=== PATIENT | female | born 1970 | race Caucasian/White ===

== ENCOUNTER → 2017-04-19 | Outpatient (CLI) | payer OTHER ==
[~2017-04-19] MED LIST: AMOX500C2 PO; AMOXICILLIN; DIPH25TA82; HYDR-3812 PO; INDO50CA PO; NAPR550T PO; OMEP-10 PO; VARE1TAB17; VARE1TAB19 PO
--- NOTE | 2017-04-19 13:46 | Diagnostic Imaging Report ---
Bilateral diagnostic mammogram. CAD is utilized. COMPARISON: 09/14/2016. INDICATION: Left breast nipple itching and discharge. Followup asymmetry with increased density along the retroareolar region in the right CC projection. FINDINGS: The breasts are composed of heterogeneously dense parenchyma which may decrease mammographic sensitivity. When compared to prior studies the density in the central aspect of the right CC projection appears less prominent. There is no definite abnormality in the left breast. IMPRESSION: No mammographic evidence of malignancy. Dense breasts. Ultrasound evaluation pending. ACR BI-RADS Category 0: Incomplete. (Needs additional imaging evaluation). Result letter will be mailed to the patient. Note: At least 10% of breast cancer is not imaged by mammography. Dictated by: Dictated on workstation # [id number]
--- NOTE | 2017-04-19 19:24 | Diagnostic Imaging Report ---
EXAM: Bilateral breast ultrasound. INDICATION: Left nipple itching and discharge and right breast asymmetry which appears less prominent on the concurrent mammogram. FINDINGS: Both breasts are scanned with four-quadrant/retroareolar region evaluated. There is bilateral duct ectasia, more prominent on the left side. There is otherwise no suspicious lesion seen. IMPRESSION: Bilateral duct ectasia, more prominent on the left side, with no solid mass. Clinical followup for complaints of nipple discharge and itching is recommended. If indicated, cytology evaluation and/or MRI of the breasts could be performed for further evaluation. BI-RADS 2. ACR BI-RADS Category 2: Benign findings. Result letter will be mailed to the patient. Note: At least 10% of breast cancer is not imaged by mammography. Dictated by: Dictated on workstation # [id number]
== END ==
LOC: RAD 13:07
PROVIDERS: ATTEND Nurse Practitioner Adult Health
DX: N60.42 Mammary duct ectasia of left breast (principal)
CPT/HCPCS: 77066

== ENCOUNTER 2017-12-26 08:50 | Emergency (ER) | payer SELFPAY ==
[~2017-12-26 08:50] MED LIST changes: +ACHD5005 PO; -HYDR-3812 PO
[2017-12-26 09:12] VITALS: BP 0/0
--- OUTSIDE RECORDS SUMMARY | 2017-12-26 11:47 | XMS REPORT ---
Author Author NATALYA BERG Organization [facility] Address [address] [place] [address] Care Team Providers Care Rewriter Name Role Phone BERG, NATALYA Unavailable PROBLEMS Type Condition ICD9-CM Code [id number] Code Onset Dates Condition Status SNOMED Code Problem Heart murmur R01.1 Active 59291348 Problem Fatigue R53.83 Active 04716660 Problem Obesity due to excess calories, unspecified obesity severity E66.09 Active 506425179 Problem Abnormal mammogram R92.8 Active 556748451 Problem Tobacco abuse counseling Z71.6 Active 04541596 Problem Family history of diabetes mellitus Z83.3 Active 965225976 Problem Major depressive disorder with single episode, remission status unspecified F32.9 Active 86563209 Problem Primary insomnia F51.01 Active 1151497 ALLERGIES No Known Allergies SOCIAL HISTORY Never Assessed PLAN OF CARE Activity Details Follow Up 3 Months Reason: VITAL SIGNS Height 64 in 2017-01-20 Weight 195 lbs 2017-01-20 Temperature 98.6 degrees Fahrenheit 2017-01-20 Heart Rate 78 bpm 2017-01-20 Respiratory Rate 18 2017-01-20 BMI 33.47 kg/m2 2017-01-20 Blood pressure systolic 90 mmHg 2017-01-20 Blood pressure diastolic 64 mmHg 2017-01-20 MEDICATIONS Medication Instructions Dosage Frequency Start Date End Date Duration Status Albuterol Sulfate HFA 108 (90 Base) MCG/ACT Inhalation every 4 hrs 2 puffs as needed 4h Dec, Active Azithromycin 250 MG Orally Once a day 2 tablets on the first day, then 1 tablet daily for 4 days 24h Dec, Dec, 5 day(s) Active PredniSONE 20 mg Orally twice a day 1 tablet 12h Dec, Dec, 05 days Active RESULTS No Results PROCEDURES No Known procedures IMMUNIZATIONS No Known Immunizations MEDICAL (GENERAL) HISTORY Type Description Date Medical History arthritis Surgical History section Surgical History exploratory laparoscopy Surgical History skin cancer- basal cell Surgical History tonsillectomy Hospitalization History Surgery(s)/Childbirth(s) only
--- OUTSIDE RECORDS SUMMARY | 2017-12-26 11:47 | XMS REPORT ---
Author NATALYA Olmedo [facility] eClinicalWorks Address Unknown Phone Unavailable Care Team Providers Care Machined Parts Metal Sprayer Name Role Phone NATALYA BERG CP Unavailable Allergies No Known Allergies Problems Problem Type Condition Code Onset Dates Condition Status Problem Major depressive disorder with single episode, remission status unspecified F32.9 Active Problem Tobacco abuse counseling Z71.6 Active Problem Primary insomnia F51.01 Active Problem Heart murmur R01.1 Active Problem Fatigue R53.83 Active Problem Family history of diabetes mellitus Z83.3 Active Medications No Known Medications Results No Known Results Summary Purpose eClinicalWorks Submission
--- OUTSIDE RECORDS SUMMARY | 2017-12-26 11:47 | XMS REPORT ---
Author NATALYA Olmedo [facility] eClinicalWorks Address Unknown Phone Unavailable Care Team Providers Care Client Account Specialist Name Role Phone NATALYA BERG CP Unavailable Allergies No Known Allergies Problems Problem Type Condition Code Onset Dates Condition Status Assessment Abnormal mammogram R92.8 Active Problem Primary insomnia F51.01 Active Problem Major depressive disorder with single episode, remission status unspecified F32.9 Active Problem Abnormal mammogram R92.8 Active Problem Family history of diabetes mellitus Z83.3 Active Problem Heart murmur R01.1 Active Problem Tobacco abuse counseling Z71.6 Active Problem Fatigue R53.83 Active Medications No Known Medications Results No Known Results Summary Purpose eClinicalWorks Submission
--- OUTSIDE RECORDS SUMMARY | 2017-12-26 11:47 | XMS REPORT ---
Author NATALYA Olmedo [facility] eClinicalWorks Address Unknown Phone Unavailable Care Team Providers Care Pleater Name Role Phone NATALYA BERG CP Unavailable [...]
--- OUTSIDE RECORDS SUMMARY | 2017-12-26 11:47 | XMS REPORT ---
Author ELLEN Wiggins [facility] eClinicalWorks Address Unknown Phone Unavailable Care Team Providers Care Interpreter Name Role Phone ELLEN CARRILLO CP Unavailable Allergies No Known Allergies Problems [...]
--- OUTSIDE RECORDS SUMMARY | 2017-12-26 11:47 | XMS REPORT ---
Author NATALYA Olmedo Organization e[employer] Address Unknown Phone Unavailable Care Team Providers Care Public Speaker Name Role Phone NATALYA BERG CP Unavailable Allergies, Adverse Reactions, Alerts Substance Reaction Event Type N.K.D.A. Info Not Available Non Drug Allergy Problems Problem Type Condition Code Onset Dates Condition Status Assessment Coughing R05 Active Assessment Fatigue R53.83 Active Assessment Major depressive disorder with single episode, remission status unspecified F32.9 Active Problem Major depressive disorder with single episode, remission status unspecified F32.9 Active Problem Tobacco abuse counseling Z71.6 Active Problem Primary insomnia F51.01 Active Problem Heart murmur R01.1 Active Assessment Primary insomnia F51.01 Active Problem Fatigue R53.83 Active Problem Family history of diabetes mellitus Z83.3 Active Assessment Tobacco abuse counseling Z71.6 Active Assessment Tobacco use Z72.0 Active Assessment Wellness examination Z00.00 Active Assessment Coughing up blood R04.2 Active Medications Medication Code System Code Instructions Start Date End Date Status Dosage Chantix [facility] [address]-18 1 MG Orally Twice a day June 15, 2016 Sep 13, 2016 1 tablet Lexapro [facility] [address]-15 5 mg Orally Once a day June 15, 2016 2 tablets Procedures Procedure Coding System Code Date COMPREHEN METABOLIC PANEL CPT-4 96666 June 15, 2016 ASSAY THYROID STIM HORMONE CPT-4 77821 June 15, 2016 COMPLETE CBC W/AUTO DIFF WBC CPT-4 69243 June 15, 2016 CHEST X-RAY CPT-4 65261 June 15, 2016 Office Visit, Est Pt., Level 4 CPT-4 34464 June 15, 2016 VENIPUNCT, ROUTINE* CPT-4 06340 June 15, 2016 Vital Signs Date/Time: June 15, 2016 Cardiac Monitoring Heart Rate 77 bpm Weight 194.1 lbs Height 64 in Blood Pressure Diastolic 78 mmHg Blood Pressure Systolic 128 mmHg Results No Known Results Summary Purpose eClinicalWorks Submission
--- OUTSIDE RECORDS SUMMARY | 2017-12-26 11:48 | XMS REPORT | Continuity of Care Document ---
Author Author [facility] Address Unknown Phone Unavailable Allergies Active Description Code Type Severity Reaction Onset Reported/Identified Relationship to Patient Clinical Status Yes codeine Drug Allergy 07/30/2009 Yes codeine Drug Allergy N/A N/A 07/30/2009 Yes NKANo Known Allergies NKA Miscellaneous Allergy Mild N/A 02/01/2010 Yes DayQuil Sinus Pressure/Pain Drug Allergy N/A N/A 01/25/2014 Medications There is no data. Problems Date Dx Coded Attending Type Code Diagnosis Diagnosed By 06/26/2008 780.79 MALAISE AND FATIGUE 06/26/2008 787.91 DIARRHEA 06/26/2008 992.5 HEAT EXHAUSTION UNSPECIFIED 06/26/2008 CARRILLO DO, ELLEN K 780.79 Malaise And Fatigue 06/26/2008 CARRILLO DO, ELLEN K 787.91 Diarrhea 06/26/2008 CARRILLO DO, ELLEN K 992.5 Heat Exhaustion Unspecified 06/26/2008 SHIRA HUMPHREYN CHIVO R 780.79 Malaise And Fatigue 06/26/2008 SHIRA YOON CHIVO R 787.91 Diarrhea 06/26/2008 SHIRA YOON CHIVO R 992.5 Heat Exhaustion Unspecified 06/26/2008 CARRILLO DO, ELLEN K 780.79 Malaise And Fatigue 06/26/2008 CARRILLO DO, ELLEN K 787.91 Diarrhea 06/26/2008 CARRILLO DO, ELLEN K 992.5 Heat Exhaustion Unspecified 06/26/2008 ISH PROFESSOR [employer]GET[employer] SCIENCE, GREGOR A 780.79 Malaise And Fatigue 06/26/2008 ISH PROFESSOR OF [employer]GETABLE SCIENCE, GREGOR A 787.91 Diarrhea 06/26/2008 ISH PROFESSOR OF VEGETABLE SCIENCE, GREGOR A 992.5 Heat Exhaustion Unspecified 06/26/2008 CARRILLO DO, ELLEN K 780.79 Malaise And Fatigue 06/26/2008 CARRILLO DO, ELLEN K 787.91 Diarrhea 06/26/2008 CARRILLO DO, ELLEN K 992.5 Heat Exhaustion Unspecified 06/26/2008 SHIRA PROFESSOR [employer]GET[employer] SCI[employer], CHIVO R 780.79 Malaise And Fatigue 06/26/2008 SHIRA PROFESSOR [employer]GET[employer] SCI[employer], CHIVO R 787.91 Diarrhea 06/26/2008 SHIRA PROFESSOR [employer]GET[employer] SCIENCE, CHIVO R 992.5 Heat Exhaustion Unspecified 09/04/2008 784.7 EPISTAXIS 09/04/2008 V16.49 FAMILY HISTORY OF MALIGNANT NEOPLASM OF OTHER 09/04/2008 CARRILLO DO, ELLEN K 784.7 Epistaxis 09/04/2008 CARRILLO DO, ELLEN K V16.49 FAMILY HISTORY OF MALIGNANT NEOPLASM OF OTHER 09/04/2008 SHIRA PROFESSOR [employer]GET[employer] SCIENCE, CHIVO R 784.7 Epistaxis 09/04/2008 SHIRA HUMPHREYN, CHIVO R V16.49 FAMILY HISTORY OF MALIGNANT NEOPLASM OF OTHER 09/04/2008 CARRILLO DO, ELLEN K 784.7 Epistaxis 09/04/2008 CARRILLO DO, ELLEN K V16.49 FAMILY HISTORY OF MALIGNANT NEOPLASM OF OTHER 09/04/2008 ISHJackson YOON GREGOR A 784.7 Epistaxis 09/04/2008 ISH PROFESSOR [employer]GETABLE SCIENCE GREGOR A V16.49 FAMILY HISTORY OF MALIGNANT NEOPLASM OF OTHER 09/04/2008 CARRILLO DO, ELLEN K 784.7 Epistaxis 09/04/2008 CARRILLO DO, ELLEN K V16.49 FAMILY HISTORY OF MALIGNANT NEOPLASM OF OTHER 09/04/2008 SHIRA HUMPHREYN, CHIVO R 784.7 Epistaxis 09/04/2008 SHIRA HUMPHREYN, CHIVO R V16.49 FAMILY HISTORY OF MALIGNANT NEOPLASM OF OTHER 12/05/2008 564.00 CONSTIPATION 12/05/2008 V72.31 ROUTINE GYNECOLOGICAL EXAMINATION 12/05/2008 CARRILLO DO, ELLEN K 564.00 CONSTIPATION 12/05/2008 CARRILLO DO, ELLEN K V72.31 Routine Gynecological Examination 12/05/2008 SHIRA PROFESSOR [employer]GET[employer] SCIENCE, CHIVO R 564.00 CONSTIPATION 12/05/2008 SHIRA PROFESSOR [employer] VEGETABLE SCIENCE, CHIVO R V72.31 Routine Gynecological Examination 12/05/2008 CARRILLO DO, ELLEN K 564.00 CONSTIPATION 12/05/2008 CARRILLO DO, ELLEN K V72.31 Routine Gynecological Examination 12/05/2008 ISH APRN, GREGOR A 564.00 CONSTIPATION 12/05/2008 ISHJackson YOON GREGOR A V72.31 Routine Gynecological Examination 12/05/2008 CARRILLO DO, ELLEN K 564.00 CONSTIPATION 12/05/2008 CARRILLO DO, ELLEN K V72.31 Routine Gynecological Examination 12/05/2008 SHELDON SILVA APRNINA R 564.00 CONSTIPATION 12/05/2008 SHELDON SILVA APRNINA R V72.31 Routine Gynecological Examination 07/30/2009 599.0 URINARY TRACT INFECTION SITE NOT SPECIFIED 07/30/2009 CARRILLO DO ELLEN K 599.0 Urinary Tract Infection Site Not Specified 07/30/2009 SHELDON SILVA APRNINA R 599.0 Urinary Tract Infection Site Not Specified 07/30/2009 CARRILLO DO ELLEN K 599.0 Urinary Tract Infection Site Not Specified 07/30/2009 GREGOR DENG APRN 599.0 Urinary Tract Infection Site Not Specified 07/30/2009 CARRILLO DO, ELLEN K 599.0 Urinary Tract Infection Site Not Specified 07/30/2009 SHELDON SILVA APRNINA R 599.0 Urinary Tract Infection Site Not Specified 08/12/2009 625.9 pelvic pain 08/12/2009 LORENA DO ELLEN K 625.9 Pelvic Pain 08/12/2009 SHELDON SILVA APRNINA R 625.9 Pelvic Pain 08/12/2009 CARRILLO DO, ELLEN K 625.9 Pelvic Pain 08/12/2009 GREGOR DENG APRN A 625.9 Pelvic Pain 08/12/2009 CARRILLO DO, ELLEN K 625.9 Pelvic Pain 08/12/2009 SHELDON SILVA APRNINA R 625.9 Pelvic Pain 04/11/2010 305.1 NONDEPENDENT ABUSE OF DRUGS, TOBACCO USE DISORDER 04/11/2010 611.71 MASTODYNIA 04/11/2010 627.9 MENOPAUSAL AND POSTMENOPAUSAL DISORDER UNSPECIFIED 04/11/2010 LORENA DO ELLEN K 305.1 NONDEPENDENT ABUSE OF DRUGS, TOBACCO USE DISORDER 04/11/2010 CARRILLO DO ELLEN K 611.71 Mastodynia 04/11/2010 LORENA BUENROSTRO ELLEN K 627.9 MENOPAUSAL AND POSTMENOPAUSAL DISORDER UNSPECIFIED 04/11/2010 SHELDON SILVA APRNINA R 305.1 NONDEPENDENT ABUSE OF DRUGS, TOBACCO USE DISORDER 04/11/2010 SHELDON SILVA APRNINA R 611.71 Mastodynia 04/11/2010 SHELDON SILVA APRNINA R 627.9 MENOPAUSAL AND POSTMENOPAUSAL DISORDER UNSPECIFIED 04/11/2010 CARRILLO DO, ELLEN K 305.1 NONDEPENDENT ABUSE OF DRUGS, TOBACCO USE DISORDER 04/11/2010 CARRILLO DO, ELLEN K 611.71 Mastodynia 04/11/2010 CARRILLO DO, ELLEN K 627.9 MENOPAUSAL AND POSTMENOPAUSAL DISORDER UNSPECIFIED 04/11/2010 ISH PROFESSOR [employer] SCIENCE, GREGOR A 305.1 NONDEPENDENT ABUSE OF DRUGS, TOBACCO USE DISORDER 04/11/2010 ISH PROFESSOR [employer]GETABLE SCIENCE, GREGOR A 611.71 Mastodynia 04/11/2010 ISH PROFESSOR OF VEGETABLE SCIENCE, GREGOR A 627.9 MENOPAUSAL AND POSTMENOPAUSAL DISORDER UNSPECIFIED 04/11/2010 CARRILLO DO, ELLEN K 305.1 NONDEPENDENT ABUSE OF DRUGS, TOBACCO USE DISORDER 04/11/2010 CARRILLO DO ELLEN K 611.71 Mastodynia 04/11/2010 CARRILLO DO, ELLEN K 627.9 MENOPAUSAL AND POSTMENOPAUSAL DISORDER UNSPECIFIED 04/11/2010 SHIRA PROFESSOR [employer]GET[employer] SCIENCE, CHIVO R 305.1 NONDEPENDENT ABUSE OF DRUGS, TOBACCO USE DISORDER 04/11/2010 SHIRA PROFESSOR [employer]GETABLE SCIENCE, CHIVO R 611.71 Mastodynia 04/11/2010 SHIRA PROFESSOR OF VEGETABLE SCIENCE, CHIVO R 627.9 MENOPAUSAL AND POSTMENOPAUSAL DISORDER UNSPECIFIED 10/02/2010 466.0 BRONCHITIS, ACUTE 10/02/2010 786.07 WHEEZING 10/02/2010 786.2 cough 10/02/2010 CARRILLO DO, ELLEN K 466.0 Bronchitis, Acute 10/02/2010 CARRILLO DO, ELLEN K 786.07 Wheezing 10/02/2010 CARRILLO DO, ELLEN K 786.2 Cough 10/02/2010 SHIRA PROFESSOR [employer]GET[employer] SCIENCE, CHIVO R 466.0 Bronchitis, Acute 10/02/2010 SHIRA PROFESSOR [employer]GETABLE SCIENCE, CHIVO R 786.07 Wheezing 10/02/2010 SHIRA PROFESSOR OF VEGETABLE SCIENCE, CHIVO R 786.2 Cough 10/02/2010 CARRILLO DO, ELLEN K 466.0 Bronchitis, Acute 10/02/2010 CARRILLO DO, ELLEN K 786.07 Wheezing 10/02/2010 CARRILLO DO, ELLEN K 786.2 Cough 10/02/2010 ISH PROFESSOR [employer]GET[employer] SCIENCE, GREGOR A 466.0 Bronchitis, Acute 10/02/2010 ISH PROFESSOR OF VEGETABLE SCIENCE, GREGOR A 786.07 Wheezing 10/02/2010 ISH PROFESSOR OF VEGETABLE SCIENCE, GREGOR A 786.2 Cough 10/02/2010 CARRILLO DO ELLEN K 466.0 Bronchitis, Acute 10/02/2010 CARRILLO DO, ELLEN K 786.07 Wheezing 10/02/2010 CARRILLO DO, ELLEN K 786.2 Cough 10/02/2010 SHELDON SILVA APRNINA R 466.0 Bronchitis, Acute 10/02/2010 SHIRA PROFESSOR [employer]GETABLE SCIENCE, CHIVO R 786.07 Wheezing 10/02/2010 SHIRA PROFESSOR OF VEGETABLE SCIENCE, CHIVO R 786.2 Cough 10/22/2010 465.9 UPPER RESPIRATORY INFECTION 10/22/2010 V87.31 CONTACT WITH AND (SUSPECTED) EXPOSURE TO MOLD 10/22/2010 CARRILLO DO, ELLEN K 465.9 Upper Respiratory Infection 10/22/2010 CARRILLO DO, ELLEN K V87.31 Contact With And (suspected) Exposure To Mold 10/22/2010 SHIRA YOON CHIVO R 465.9 Upper Respiratory Infection 10/22/2010 SHIRA YOON CHIVO R V87.31 Contact With And (suspected) Exposure To Mold 10/22/2010 CARRILLO DO, ELLEN K 465.9 Upper Respiratory Infection 10/22/2010 CARRILLO DO, ELLEN K V87.31 Contact With And (suspected) Exposure To Mold 10/22/2010 ISH YOON GREGOR A 465.9 Upper Respiratory Infection 10/22/2010 ISH YOON GREGOR A V87.31 Contact With And (suspected) Exposure To Mold 10/22/2010 CARRILLO DO, ELLEN K 465.9 Upper Respiratory Infection 10/22/2010 CARRILLO DO, ELLEN K V87.31 Contact With And (suspected) Exposure To Mold 10/22/2010 SHELDON SILVA APRNINA R 465.9 Upper Respiratory Infection 10/22/2010 SHIRA YOON CHIVO R V87.31 Contact With And (suspected) Exposure To Mold 12/14/2010 Ot 461.9 ACUTE SINUSITIS NOS 12/14/2010 Ot 478.19 OTHER DISEASE OF NASAL CAVITY AND SINUSE 01/28/2011 783.1 WEIGHT GAIN ABNORMAL 01/28/2011 CARRILLO DO, ELLEN K 783.1 Weight Gain Abnormal 01/28/2011 SHIRA YOON CHIVO R 783.1 Weight Gain Abnormal 01/28/2011 CARRILLO DO, ELLEN K 783.1 Weight Gain Abnormal 01/28/2011 CHAYA DENG APRNIDI A 783.1 Weight Gain Abnormal 01/28/2011 CARRILLO DO, ELLEN K 783.1 Weight Gain Abnormal 01/28/2011 SHIRA PROFESSOR [employer]GET[employer] SCIENCE, CHIVO R 783.1 Weight Gain Abnormal 01/30/2011 V70.5 PREEMPLOYMENT/ PRESCHOOL EXAM 01/30/2011 V74.1 SCREENING EXAMINATION FOR PULMONARY TUBERCULOSIS 01/30/2011 CARRILLO DO ELLEN K V70.5 Preemployment/preschool Exam 01/30/2011 CARRILLO DO ELLEN K V74.1 Screening Examination For Pulmonary Tuberculosis 01/30/2011 SHIRA HUMPHREYN, CHIVO R V70.5 Preemployment/preschool Exam 01/30/2011 SHIRA PROFESSOR [employer]GETABLE SCIENCE, CHIVO R V74.1 Screening Examination For Pulmonary Tuberculosis 01/30/2011 CARRILLO DO ELLEN K V70.5 Preemployment/preschool Exam 01/30/2011 CARRILLO DO ELLEN K V74.1 Screening Examination For Pulmonary Tuberculosis 01/30/2011 ISH APRN, GREGOR A V70.5 Preemployment/preschool Exam 01/30/2011 CHAYA DENG APRNIDI A V74.1 Screening Examination For Pulmonary Tuberculosis 01/30/2011 CARRILLO DO ELLEN K V70.5 Preemployment/preschool Exam 01/30/2011 CARRILLO DO ELLEN K V74.1 Screening Examination For Pulmonary Tuberculosis 01/30/2011 SHIRA YOON, CHIVO R V70.5 Preemployment/preschool Exam 01/30/2011 SHIRA YOON, CHIVO R V74.1 Screening Examination For Pulmonary Tuberculosis 02/25/2011 296.90 MOOD DISORDER 02/25/2011 461.9 SINUSITIS ACUTE 02/25/2011 CARRILLO DO ELLEN K 296.90 MOOD DISORDER 02/25/2011 CARRILLO DO ELLEN K 461.9 Sinusitis Acute 02/25/2011 SHIRA YOON, CHIVO R 296.90 MOOD DISORDER 02/25/2011 SHIRA YOON CHIVO R 461.9 Sinusitis Acute 02/25/2011 CARRILLO DO ELLEN K 296.90 MOOD DISORDER 02/25/2011 CARRILLO DO ELLEN K 461.9 Sinusitis Acute 02/25/2011 ISH YOON GREGOR A 296.90 MOOD DISORDER 02/25/2011 ISHJackson YOON GREGOR A 461.9 Sinusitis Acute 02/25/2011 CARRILLO DO, ELLEN K 296.90 MOOD DISORDER 02/25/2011 CONCHITA CARRILLO DOA K 461.9 Sinusitis Acute 02/25/2011 CHIVO SILVA APRN R 296.90 MOOD DISORDER 02/25/2011 CHIVO SILVA APRN R 461.9 Sinusitis Acute 04/21/2011 788.1 DYSURIA 04/21/2011 CARRILLO CONCHITA BUENROSTROA K 788.1 Dysuria 04/21/2011 CHIVO SILVA APRN R 788.1 Dysuria 04/21/2011 CARRILLO CONCHITA BUENROSTROA K 788.1 Dysuria 04/21/2011 GREGOR DENG APRN 788.1 Dysuria 04/21/2011 CARRILLO DOCONCHITAA K 788.1 Dysuria 04/21/2011 CHIVO SILVA APRN R 788.1 Dysuria 05/12/2011 789.60 EPIGASTRIC PAIN 05/12/2011 ELLEN CARRILLO DO K 789.60 EPIGASTRIC PAIN 05/12/2011 CHIVO SILVA APRN R 789.60 EPIGASTRIC PAIN 05/12/2011 CONCHITA CARRILLO DOA K 789.60 EPIGASTRIC PAIN 05/12/2011 GREGOR DENG APRN A 789.60 EPIGASTRIC PAIN 05/12/2011 CARRILLO CONCHITA BUENROSTROA K 789.60 EPIGASTRIC PAIN 05/12/2011 CHIVO SILVA APRN R 789.60 EPIGASTRIC PAIN 06/06/2011 Ot 786.50 CHEST PAIN NOS 06/06/2011 Ot 786.52 PAINFUL RESPIRATION 12/05/2011 Ot 535.50 UNSP GASTRITIS GASTRODUODENITIS W/O ME 12/05/2011 Ot 789.06 ABDOMINAL PAIN, EPIGASTRIC 06/03/2012 Ot V16.0 FAMILY HX-GI MALIGNANCY 06/03/2012 Ot V76.51 SCREEN MAL NEOP-COLON 01/17/2013 ELLEN CARRILLO DO K 789.09 abdominal pain above the pubic area (suprapubic) 01/17/2013 CHIVO SILVA APRN R 789.09 abdominal pain above the pubic area (suprapubic) 01/17/2013 ELLEN CARRILLO DO K 789.09 abdominal pain above the pubic area (suprapubic) 01/17/2013 GREGOR DENG APRN A 789.09 abdominal pain above the pubic area (suprapubic) 01/17/2013 CARRILLO DO, ELLEN K 789.09 abdominal pain above the pubic area (suprapubic) 01/17/2013 SHIRA PROFESSOR [employer]GET[employer] SCIENCE, CHIVO R 789.09 abdominal pain above the pubic area (suprapubic) 01/08/2014 SHIRA PROFESSOR [employer]GETABLE SCIENCE, CHIVO R 786.09 RESPIRATORY ABNORMALITY OTHER 01/08/2014 SHIRA PROFESSOR [employer] VEGETABLE SCIENCE, CHIVO R 786.2 COUGH 01/08/2014 CARRILLO DO, ELLEN K 786.09 RESPIRATORY ABNORMALITY OTHER 01/08/2014 CARRILLO DO, ELLEN K 786.2 COUGH 01/08/2014 ISH PROFESSOR [employer]GET[employer] SCIENCE, GREGOR A 786.09 RESPIRATORY ABNORMALITY OTHER 01/08/2014 ISH PROFESSOR OF VEGETABLE SCIENCE, GREGOR A 786.2 COUGH 01/08/2014 CARRILLO DO, ELLEN K 786.09 RESPIRATORY ABNORMALITY OTHER 01/08/2014 CARRILLO DO, ELLEN K 786.2 COUGH 01/08/2014 SHIRA HUMPHREYN, CHIVO R 786.09 RESPIRATORY ABNORMALITY OTHER 01/08/2014 SHIRA YOON, CHIVO R 786.2 COUGH 01/23/2014 CARRILLO DO, ELLEN K 623.5 LEUKORRHEA NOT SPECIFIED INFECTIVE 01/23/2014 CARRILLO DO, ELLEN K 627.1 POSTMENOPAUSAL BLEEDING 01/23/2014 CARRILLO DO, ELLEN K 788.1 DYSURIA 01/23/2014 ISHROCK YOON GREGOR A 623.5 LEUKORRHEA NOT SPECIFIED INFECTIVE 01/23/2014 ISHROCK YOON GREGOR A 627.1 POSTMENOPAUSAL BLEEDING 01/23/2014 ISH YOON GREGOR A 788.1 DYSURIA 01/23/2014 CARRILLO DO ELLEN K 623.5 LEUKORRHEA NOT SPECIFIED INFECTIVE 01/23/2014 CARRILLO DO, ELLEN K 627.1 POSTMENOPAUSAL BLEEDING 01/23/2014 CARRILLO DO, ELLEN K 788.1 DYSURIA 01/23/2014 SHIRA YOON CHIVO R 623.5 LEUKORRHEA NOT SPECIFIED INFECTIVE 01/23/2014 SHIRA YOON CHIVO R 627.1 POSTMENOPAUSAL BLEEDING 01/23/2014 SHIRA YOON CHIVO R 788.1 DYSURIA 01/25/2014 LORENA BUENROSTRO ELLEN K 487.1 INFLUENZA 01/25/2014 ISHJackson YOON GREGOR A 487.1 INFLUENZA 01/25/2014 CONCHITA CARRILLO DOA K 487.1 INFLUENZA 01/25/2014 SHIRA PROFESSOR [employer]GETABLE SCIENCE, CHIVO R 487.1 INFLUENZA 04/02/2014 ISH PROFESSOR OF [employer]GETABLE SCIENCE, GREGOR A 626.7 POSTCOITAL BLEEDING 04/02/2014 ISH PROFESSOR OF [employer]GETABLE SCIENCE, GREGOR A V74.5 STD SCREEN 04/02/2014 ELLEN CARRILLO DO K 626.7 POSTCOITAL BLEEDING 04/02/2014 CONCHITA CARRILLO DOA K V74.5 STD SCREEN 04/02/2014 SHIRA PROFESSOR OF [employer]GETABLE SCIENCE, CHIVO R 626.7 POSTCOITAL BLEEDING 04/02/2014 SHIRA PROFESSOR OF VEGETABLE SCIENCE, CHIVO R V74.5 STD SCREEN 10/17/2014 Ot V76.12 10/17/2014 Ot V72.84 10/17/2014 Ot V76.12 10/17/2014 ISH, GREGOR A PROFESSOR [employer]GETABLE SCI[employer] Ot 626.7 10/17/2014 ISH, GREGOR A PROFESSOR [employer]GET[employer] SCI[employer] Ot 627.1 10/17/2014 ISH, GREGOR A PROFESSOR [employer]GET[employer] SCI[employer] Ot V74.5 10/17/2014 ISH, GREGOR A PROFESSOR [employer]GET[employer] SCI[employer] Ot 623.5 10/17/2014 ISH, GREGOR A PROFESSOR OF [employer]GET[employer] SCI[employer] Ot 627.1 10/17/2014 ISH, GREGOR A PROFESSOR [employer]GET[employer] SCI[employer] Ot 786.03 10/17/2014 ISH, GREGOR A PROFESSOR OF [employer]GETABLE SCI[employer] Ot 786.2 10/17/2014 ISH, GREGOR A PROFESSOR [employer]GETABLE SCI[employer] Ot 788.1 10/17/2014 ISH, GREGOR A PROFESSOR [employer]GETABLE SCIENCE Ot V76.12 10/17/2014 CHIVO SILVA R PROFESSOR [employer]GETABLE SCIENCE Ot 793.80 10/22/2014 SHELDON SILVAINA R PROFESSOR OF [employer]GETABLE SCIENCE Ot 793.89 10/22/2014 Ot V76.12 10/22/2014 Ot V72.84 10/22/2014 Ot V76.12 10/22/2014 ISH, GREGOR A PROFESSOR [employer]GETABLE SCI[employer] Ot 626.7 10/22/2014 ISH, GREGOR A PROFESSOR OF [employer]GET[employer] SCI[employer] Ot 627.1 10/22/2014 ISH, GREGOR A PROFESSOR OF [employer]GETABLE SCI[employer] Ot V74.5 10/22/2014 ISH, GREGOR A PROFESSOR OF [employer]GETABLE SCI[employer] Ot 623.5 10/22/2014 ISH, GREGOR A PROFESSOR OF [employer]GETABLE SCI[employer] Ot 627.1 10/22/2014 ISH GREGOR A PROFESSOR OF VEGETABLE SCIENCE Ot 786.03 10/22/2014 ISH GREGOR A PROFESSOR OF VEGETABLE SCIENCE Ot 786.2 10/22/2014 ISH GREGOR A PROFESSOR OF VEGETABLE SCIENCE Ot 788.1 10/22/2014 ISH, GREGOR A PROFESSOR OF [employer]GETABLE SCIENCE Ot V76.12 10/22/2014 CHIVO SILVA R PROFESSOR [employer]GETABLE SCI[employer] Ot 793.80 10/22/2014 CHIVO SILVA R PROFESSOR OF [employer]GETABLE SCIENCE Ot 793.89 03/04/2016 Ot V76.12 03/04/2016 Ot V72.84 03/04/2016 Ot V76.12 03/04/2016 ISH GREGOR A PROFESSOR OF VEGETABLE SCIENCE Ot 626.7 03/04/2016 ISH GREGOR A PROFESSOR OF [employer]GETABLE SCIENCE Ot 627.1 03/04/2016 ISH GREGOR A PROFESSOR OF VEGETABLE SCIENCE Ot V74.5 03/04/2016 ISH GREGOR A PROFESSOR OF VEGETABLE SCIENCE Ot 623.5 03/04/2016 ISH GREGOR A PROFESSOR OF [employer]GETABLE SCIENCE Ot 627.1 03/04/2016 ISH, GREGOR A PROFESSOR [employer]GETABLE SCI[employer] Ot 786.03 03/04/2016 ISH, GREGOR A PROFESSOR [employer]GETABLE SCI[employer] Ot 786.2 03/04/2016 ISH GREGOR A PROFESSOR OF VEGETABLE SCIENCE Ot 788.1 03/04/2016 ISH GREGOR A PROFESSOR OF VEGETABLE SCIENCE Ot V76.12 03/04/2016 CHIVO SILVA PROFESSOR [employer]GETABLE SCIENCE Ot 793.80 03/04/2016 CHIVO SILVA PROFESSOR [employer] VEGETABLE SCIENCE Ot 793.89 03/05/2016 NATALYA BERG Ot Z12.31 04/08/2016 Ot V76.12 OTH SCREEN MAMMO-MALIGN NEOPLASM OF AUDREY 04/08/2016 Ot V72.84 EXAM PRE- OPERATIVE NOS 04/08/2016 Ot V76.12 OTH SCREEN MAMMO-MALIGN NEOPLASM OF AUDREY 04/08/2016 ISH GREGOR A PROFESSOR OF VEGETABLE SCIENCE Ot 626.7 POSTCOITAL BLEEDING 04/08/2016 ISH GREGOR A PROFESSOR OF VEGETABLE SCIENCE Ot 627.1 POSTMENOPAUSAL BLEEDING 04/08/2016 ISH GREGOR A PROFESSOR OF VEGETABLE SCIENCE Ot V74.5 SCREEN FOR VENERAL DIS 04/08/2016 GREGOR DENG PROFESSOR OF VEGETABLE SCIENCE Ot 623.5 NONINFECT VAG LEUKORRHEA 04/08/2016 GREGOR DENG PROFESSOR [employer]GETABLE SCIENCE Ot 627.1 POSTMENOPAUSAL BLEEDING 04/08/2016 GREGOR DENG PROFESSOR [employer]GETABLE SCIENCE Ot 786.03 APNEA 04/08/2016 GREGOR DENG PROFESSOR OF [employer]GETABLE SCIENCE Ot 786.2 COUGH 04/08/2016 GREGOR DENG PROFESSOR [employer]GET[employer] SCIENCE Ot 788.1 DYSURIA 04/08/2016 GREGOR DENG PROFESSOR OF VEGETABLE SCIENCE Ot V76.12 OTH SCREEN MAMMO-MALIGN NEOPLASM OF AUDREY 04/08/2016 CHIVO SILVA PROFESSOR [employer]GETABLE SCIENCE Ot 793.80 UNSPEC ABNORMAL MAMMOGRAM 04/08/2016 CHIVO SILVA PROFESSOR [employer]GETABLE SCIENCE Ot 793.89 OTH (ABN) FINDINGS ON RADIOLOGICAL EXAMI 04/08/2016 NATALYA BERG Ot Z12.31 ENCNTR SCREEN MAMMOGRAM FOR MALIGNANT NE 04/08/2016 NICOLE BLANCA Ot F17.210 NICOTINE DEPENDENCE, CIGARETTES, UNCOMPL 04/08/2016 NICOLE BLANCA Ot M10.9 GOUT, UNSPECIFIED 04/08/2016 Ot V76.12 OTH SCREEN MAMMO-MALIGN NEOPLASM OF AUDREY 04/08/2016 Ot V72.84 EXAM PRE- OPERATIVE NOS 04/08/2016 Ot V76.12 OTH SCREEN MAMMO-MALIGN NEOPLASM OF AUDREY 04/08/2016 GREGOR DENG PROFESSOR OF VEGETABLE SCIENCE Ot 626.7 POSTCOITAL BLEEDING 04/08/2016 GREGOR DENG PROFESSOR OF VEGETABLE SCIENCE Ot 627.1 POSTMENOPAUSAL BLEEDING 04/08/2016 GREGOR DENG APRN Ot V74.5 SCREEN FOR VENERAL DIS 04/08/2016 GREGOR DENG PROFESSOR OF VEGETABLE SCIENCE Ot 623.5 NONINFECT VAG LEUKORRHEA 04/08/2016 GREGOR DENG PROFESSOR OF VEGETABLE SCIENCE Ot 627.1 POSTMENOPAUSAL BLEEDING 04/08/2016 GREGOR DENG PROFESSOR OF VEGETABLE SCIENCE Ot 786.03 APNEA 04/08/2016 GREGOR DENG PROFESSOR OF VEGETABLE SCIENCE Ot 786.2 COUGH 04/08/2016 GREGOR DENG PROFESSOR OF [employer]GETABLE SCIENCE Ot 788.1 DYSURIA 04/08/2016 GREGOR DENG PROFESSOR OF VEGETABLE SCIENCE Ot V76.12 OTH SCREEN MAMMO-MALIGN NEOPLASM OF AUDREY 04/08/2016 CHIVO SILVA PROFESSOR OF VEGETABLE SCIENCE Ot 793.80 UNSPEC ABNORMAL MAMMOGRAM 04/08/2016 CHIVO SILVA R PROFESSOR [employer]GETABLE SCIENCE Ot 793.89 OTH (ABN) FINDINGS ON RADIOLOGICAL EXAMI 04/08/2016 NATALYA BERG Ot Z12.31 ENCNTR SCREEN MAMMOGRAM FOR MALIGNANT NE 04/09/2016 NICOLE BLANCA Ot F17.210 NICOTINE DEPENDENCE, CIGARETTES, UNCOMPL 04/09/2016 NICOLE BLANCA Ot M10.9 GOUT, UNSPECIFIED 04/14/2016 NICOLE BLANCA Ot F17.210 NICOTINE DEPENDENCE, CIGARETTES, UNCOMPL 04/14/2016 NICOLE BLANCA Ot M10.9 GOUT, UNSPECIFIED 04/28/2016 NICOLE BLANCA Ot F17.210 NICOTINE DEPENDENCE, CIGARETTES, UNCOMPL 04/28/2016 NICOLE BLANCA Ot M10.9 GOUT, UNSPECIFIED 04/29/2016 NICOLE BLANCA Ot F17.210 NICOTINE DEPENDENCE, CIGARETTES, UNCOMPL 04/29/2016 NICOLE BLANCA Ot M10.9 GOUT, UNSPECIFIED 05/18/2016 Ot V76.12 OTH SCREEN MAMMO-MALIGN NEOPLASM OF AUDREY 05/18/2016 Ot V72.84 EXAM PRE- OPERATIVE NOS 05/18/2016 Ot V76.12 OTH SCREEN MAMMO-MALIGN NEOPLASM OF AUDREY 05/18/2016 GREGOR DENG PROFESSOR [employer]GET[employer] SCIENCE Ot 626.7 POSTCOITAL BLEEDING 05/18/2016 GREGOR DENG PROFESSOR OF [employer]GETABLE SCIENCE Ot 627.1 POSTMENOPAUSAL BLEEDING 05/18/2016 GREGOR DENG PROFESSOR OF [employer]GETABLE SCIENCE Ot V74.5 SCREEN FOR VENERAL DIS 05/18/2016 GREGOR DENG PROFESSOR [employer]GETABLE SCI[employer] Ot 623.5 NONINFECT VAG LEUKORRHEA 05/18/2016 GREGOR DENG PROFESS[employer]GET[employer] SCI[employer] Ot 627.1 POSTMENOPAUSAL BLEEDING 05/18/2016 GREGOR DENG PROFESS[employer]GET[employer] SCI[employer] Ot 786.03 APNEA 05/18/2016 GREGOR DENG PROFESS[employer]GET[employer] SCI[employer] Ot 786.2 COUGH 05/18/2016 GREGOR DENG PROFESSOR [employer]GET[employer] SCI[employer] Ot 788.1 DYSURIA 05/18/2016 ISH, GREGOR A PROFESSOR [employer]GETABLE SCI[employer] Ot V76.12 OTH SCREEN MAMMO-MALIGN NEOPLASM OF AUDREY 05/18/2016 CHIVO SILVA PROFESSOR [employer] VEGETABLE SCIENCE Ot 793.80 UNSPEC ABNORMAL MAMMOGRAM 05/18/2016 CHIVO SILVA PROFESS[employer]GETABLE SCIENCE Ot 793.89 OTH (ABN) FINDINGS ON RADIOLOGICAL EXAMI 05/18/2016 NATALYA BERG POWERTRAIN ENGINEER Ot Z12.31 ENCNTR SCREEN MAMMOGRAM FOR MALIGNANT NE 05/18/2016 CHAYA DENGIDI A PROFESSOR [employer] VEGETABLE SCI[employer] Ot 626.7 POSTCOITAL BLEEDING 05/18/2016 ISH GREGOR A PROFESSOR [employer] VEGETABLE SCI[employer] Ot 627.1 POSTMENOPAUSAL BLEEDING 05/18/2016 CHAYA DENGIDI A PROFESSOR OF VEGETABLE SCIENCE Ot V74.5 SCREEN FOR VENERAL DIS 05/18/2016 BERGNATALYA POWERTRAIN ENGINEER Ot Z12.31 ENCNTR SCREEN MAMMOGRAM FOR MALIGNANT NE 09/14/2016 Ot V76.12 OTH SCREEN MAMMO-MALIGN NEOPLASM OF AUDREY 09/14/2016 Ot V72.84 EXAM PRE- OPERATIVE NOS 09/14/2016 Ot V76.12 OTH SCREEN MAMMO-MALIGN NEOPLASM OF AUDREY 09/14/2016 ISH, GREGOR A PROFESSOR [employer] VEGETABLE SCI[employer] Ot 626.7 POSTCOITAL BLEEDING 09/14/2016 CHAYA DENGIDI A PROFESSOR OF VEGETABLE SCIENCE Ot 627.1 POSTMENOPAUSAL BLEEDING 09/14/2016 CHAYA DENGIDI A PROFESSOR OF VEGETABLE SCIENCE Ot V74.5 SCREEN FOR VENERAL DIS 09/14/2016 CHAYA DENGIDI A PROFESSOR [employer] VEGETABLE SCIENCE Ot 623.5 NONINFECT VAG LEUKORRHEA 09/14/2016 CHAYA DENGIDI A PROFESSOR [employer]GETABLE SCIENCE Ot 627.1 POSTMENOPAUSAL BLEEDING 09/14/2016 ISH GREGOR A PROFESSOR [employer]GETABLE SCIENCE Ot 786.03 APNEA 09/14/2016 ISH GREGOR A PROFESSOR [employer]GETABLE SCIENCE Ot 786.2 COUGH 09/14/2016 ISH GREGOR A PROFESSOR [employer] VEGETABLE SCIENCE Ot 788.1 DYSURIA 09/14/2016 CHAYA DENGIDI A PROFESSOR OF VEGETABLE SCIENCE Ot V76.12 OTH SCREEN MAMMO-MALIGN NEOPLASM OF AUDREY 09/14/2016 CHIVO SILVA PROFESSOR [employer]GETABLE SCIENCE Ot 793.80 UNSPEC ABNORMAL MAMMOGRAM 09/14/2016 CHIVO SILVA PROFESSOR [employer]GETABLE SCIENCE Ot 793.89 OTH (ABN) FINDINGS ON RADIOLOGICAL EXAMI 09/14/2016 NATALYA BERG POWERTRAIN ENGINEER Ot Z12.31 ENCNTR SCREEN MAMMOGRAM FOR MALIGNANT NE 09/15/2016 NATALYA BERG POWERTRAIN ENGINEER Ot R92.8 OTH ABN AND INCONCLUSIVE FINDINGS ON DX 04/12/2017 Ot V72.84 EXAM PRE- OPERATIVE NOS 04/12/2017 Ot V76.12 OTH SCREEN MAMMO-MALIGN NEOPLASM OF AUDREY 04/12/2017 ISH GREGOR A PROFESSOR [employer] VEGETABLE SCIENCE Ot 626.7 POSTCOITAL BLEEDING 04/12/2017 ISH, GREGOR A PROFESSOR [employer]GETABLE SCIENCE Ot 627.1 POSTMENOPAUSAL BLEEDING 04/12/2017 ISH GREGOR A PROFESSOR [employer] VEGETABLE SCIENCE Ot V74.5 SCREEN FOR VENERAL DIS 04/12/2017 ISH GREGOR A PROFESSOR [employer] VEGETABLE SCIENCE Ot 623.5 NONINFECT VAG LEUKORRHEA 04/12/2017 ISH GREGOR A PROFESSOR [employer]GETABLE SCIENCE Ot 627.1 POSTMENOPAUSAL BLEEDING 04/12/2017 ISH GREGOR A PROFESSOR [employer]GETABLE SCIENCE Ot 786.03 APNEA 04/12/2017 ISH, GREGOR A PROFESSOR [employer]GETABLE SCIENCE Ot 786.2 COUGH 04/12/2017 ISH, GREGOR A PROFESSOR [employer]GETABLE SCIENCE Ot 788.1 DYSURIA 04/12/2017 ISH GREGOR A PROFESSOR OF [employer]GETABLE SCIENCE Ot V76.12 OTH SCREEN MAMMO-MALIGN NEOPLASM OF AUDREY 04/12/2017 CHIVO SILVA PROFESSOR [employer]GETABLE SCIENCE Ot 793.80 UNSPEC ABNORMAL MAMMOGRAM 04/12/2017 CHIVO SILVA PROFESSOR [employer]GETABLE SCIENCE Ot 793.89 OTH (ABN) FINDINGS ON RADIOLOGICAL EXAMI 04/12/2017 NATALYA BERG POWERTRAIN ENGINEER Ot Z12.31 ENCNTR SCREEN MAMMOGRAM FOR MALIGNANT NE 04/12/2017 NATALYA BERG POWERTRAIN ENGINEER Ot R92.8 OTH ABN AND INCONCLUSIVE FINDINGS ON DX 04/16/2017 Ot V72.84 EXAM PRE- OPERATIVE NOS 04/16/2017 Ot V76.12 OTH SCREEN MAMMO-MALIGN NEOPLASM OF AUDREY 04/16/2017 ISH GREGOR A PROFESSOR OF VEGETABLE SCIENCE Ot 626.7 POSTCOITAL BLEEDING 04/16/2017 ISH GREGOR A PROFESSOR OF VEGETABLE SCIENCE Ot 627.1 POSTMENOPAUSAL BLEEDING 04/16/2017 ISH GREGOR A PROFESSOR OF VEGETABLE SCIENCE Ot V74.5 SCREEN FOR VENERAL DIS 04/16/2017 GREGOR DENG A PROFESSOR OF VEGETABLE SCIENCE Ot 623.5 NONINFECT VAG LEUKORRHEA 04/16/2017 GREGOR DENG A PROFESSOR OF VEGETABLE SCIENCE Ot 627.1 POSTMENOPAUSAL BLEEDING 04/16/2017 GREGOR DENG A PROFESSOR OF VEGETABLE SCIENCE Ot 786.03 APNEA 04/16/2017 GREGOR DENG A PROFESSOR OF VEGETABLE SCIENCE Ot 786.2 COUGH 04/16/2017 GREGOR DENG PROFESSOR OF VEGETABLE SCIENCE Ot 788.1 DYSURIA 04/16/2017 GREGOR DENG A PROFESSOR OF VEGETABLE SCIENCE Ot V76.12 OTH SCREEN MAMMO-MALIGN NEOPLASM OF AUDREY 04/16/2017 CHIVO SILVA PROFESSOR OF VEGETABLE SCIENCE Ot 793.80 UNSPEC ABNORMAL MAMMOGRAM 04/16/2017 CHIVO SIVLA PROFESSOR OF VEGETABLE SCIENCE Ot 793.89 OTH (ABN) FINDINGS ON RADIOLOGICAL EXAMI 04/16/2017 NATALYA BERG Ot Z12.31 ENCNTR SCREEN MAMMOGRAM FOR MALIGNANT NE 04/16/2017 NATALYA BERG POWERTRAIN ENGINEER Ot R92.8 OTH ABN AND INCONCLUSIVE FINDINGS ON DX 04/19/2017 Ot V72.84 EXAM PRE- OPERATIVE NOS 04/19/2017 Ot V76.12 OTH SCREEN MAMMO-MALIGN NEOPLASM OF AUDREY 04/19/2017 GREGOR DENG PROFESSOR OF VEGETABLE SCIENCE Ot 626.7 POSTCOITAL BLEEDING 04/19/2017 GREGOR DENG A PROFESSOR OF VEGETABLE SCIENCE Ot 627.1 POSTMENOPAUSAL BLEEDING 04/19/2017 GREGOR DENG PROFESSOR OF VEGETABLE SCIENCE Ot V74.5 SCREEN FOR VENERAL DIS 04/19/2017 GREGOR DENG A PROFESSOR OF VEGETABLE SCIENCE Ot 623.5 NONINFECT VAG LEUKORRHEA 04/19/2017 GREGOR DENG A PROFESSOR OF VEGETABLE SCIENCE Ot 627.1 POSTMENOPAUSAL BLEEDING 04/19/2017 GREGOR DENG A PROFESSOR OF VEGETABLE SCIENCE Ot 786.03 APNEA 04/19/2017 GREGOR DENG A PROFESSOR OF VEGETABLE SCIENCE Ot 786.2 COUGH 04/19/2017 GREGOR DENG A PROFESSOR OF VEGETABLE SCIENCE Ot 788.1 DYSURIA 04/19/2017 GREGOR DENG PROFESSOR OF VEGETABLE SCIENCE Ot V76.12 OTH SCREEN MAMMO-MALIGN NEOPLASM OF AUDREY 04/19/2017 CHIVO SILVA PROFESSOR OF VEGETABLE SCIENCE Ot 793.80 UNSPEC ABNORMAL MAMMOGRAM 04/19/2017 CHIVO SILVA PROFESSOR OF VEGETABLE SCIENCE Ot 793.89 OTH (ABN) FINDINGS ON RADIOLOGICAL EXAMI 04/19/2017 ANTIONE BERGRito Busch POWERTRAIN ENGINEER Ot Z12.31 ENCNTR SCREEN MAMMOGRAM FOR MALIGNANT NE 04/19/2017 NATALYA BERG POWERTRAIN ENGINEER Ot R92.8 OTH ABN AND INCONCLUSIVE FINDINGS ON DX 04/25/2017 MARIELA BERGMONA Busch POWERTRAIN ENGINEER Ot N60.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 04/29/2017 Ot V72.84 EXAM PRE- OPERATIVE NOS 04/29/2017 Ot V76.12 OTH SCREEN MAMMO-MALIGN NEOPLASM OF AUDREY 04/29/2017 ISH GREGOR A PROFESSOR OF VEGETABLE SCIENCE Ot 626.7 POSTCOITAL BLEEDING 04/29/2017 ISH GREGOR A PROFESSOR OF VEGETABLE SCIENCE Ot 627.1 POSTMENOPAUSAL BLEEDING 04/29/2017 ISH, GREGOR A PROFESSOR OF VEGETABLE SCIENCE Ot V74.5 SCREEN FOR VENERAL DIS 04/29/2017 ISH, GREGOR A PROFESSOR OF VEGETABLE SCIENCE Ot 623.5 NONINFECT VAG LEUKORRHEA 04/29/2017 ISH GREGOR A PROFESSOR OF VEGETABLE SCIENCE Ot 627.1 POSTMENOPAUSAL BLEEDING 04/29/2017 ISH GREGOR A PROFESSOR OF VEGETABLE SCIENCE Ot 786.03 APNEA 04/29/2017 ISH, GREGOR A PROFESSOR OF VEGETABLE SCIENCE Ot 786.2 COUGH 04/29/2017 ISH, GREGOR A PROFESSOR OF VEGETABLE SCIENCE Ot 788.1 DYSURIA 04/29/2017 ISH, GREGOR A PROFESSOR OF VEGETABLE SCIENCE Ot V76.12 OTH SCREEN MAMMO-MALIGN NEOPLASM OF AUDREY 04/29/2017 CHIVO SILVA PROFESSOR OF VEGETABLE SCIENCE Ot 793.80 UNSPEC ABNORMAL MAMMOGRAM 04/29/2017 CHIVO SILVA PROFESSOR OF VEGETABLE SCIENCE Ot 793.89 OTH (ABN) FINDINGS ON RADIOLOGICAL EXAMI 04/29/2017 OTISNATALYAP Ot Z12.31 ENCNTR SCREEN MAMMOGRAM FOR MALIGNANT NE 04/29/2017 OTISNATALYAP Ot R92.8 OTH ABN AND INCONCLUSIVE FINDINGS ON DX 04/29/2017 OTIS NATALYA Busch POWERTRAIN ENGINEER Ot N60.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 Procedures Code [place] [address] UA W/ CULTURE IF INDICATED 01/17/2013 CELINA WHITE 01/17/2013 21059 ROUTINE VENIPUNCTURE 01/09/2014 21999 LIPID PANEL 01/09/2014 91294 CBC 01/09/2014 1011226 GFR CALC (RESULT ONLY) 01/09/2014 32666 CMP 01/09/2014 16935 TSH 01/09/2014 97157 MYCOPLASMA ANTIBODY 01/10/2014 46928 INFLUENZA A & B (IN-HOUSE) 01/23/2014 00423 UA LONG DIP 01/23/2014 24509 HEMOCCULT 01/23/2014 72985 INFLUENZA A & B (IN-HOUSE) 01/25/2014 38642 MAMMOGRAM, SCREENING 01/26/2014 27791 PAP SMEAR 01/26/2014 72274 CULTURE UROGENITAL 01/27/2014 83594 OXIMETRY 01/28/2014 Q0091 PAP SMEAR OBTAIN SMEAR 01/29/2014 00570 TRICHOMONAS (IN-HOUSE) 04/02/2014 04092 US PELVIC COMPL (REFLEX CPT - 46631) 04/03/2014 25302 MAMMOGRAM DX, LEFT 04/03/2014 37060 GC/CHLAM PROBE (STATE) 04/03/2014 72068 US BREAST ULTRASOUND, LEFT 04/17/2014 52064 XRAY CHEST 2 VIEW 09/21/2014 56496 MAMMOGRAM DX, LEFT 09/21/2014 Results There is no data. Encounters ACCT No. Visit Date/Time Discharge Status Pt. Type Provider Facility Loc./Unit Complaint [id number] 09/19/2014 12:35:00 09/19/2014 23:59:59 CLS Outpatient ELLEN CARRILLO DO [id number] 04/02/2014 17:40:00 04/02/2014 23:59:59 CLS Outpatient GREGOR DENG APRN [id number] 01/25/2014 12:03:00 01/25/2014 23:59:59 CLS Outpatient ELLEN CARRILLO DO [id number] 01/23/2014 17:35:00 01/23/2014 23:59:59 CLS Outpatient CHIVO SILVA APRN [id number] 01/09/2014 08:15:00 01/09/2014 23:59:59 CLS Outpatient CHIVO SILVA APRN [id number] 01/17/2013 17:09:00 01/17/2013 23:59:59 CLS Outpatient ELLEN CARRILLO DO [id number] 12/29/2012 12:18:00 12/29/2012 23:59:59 CLS Outpatient [id number] 04/19/2017 13:07:00 04/19/2017 23:59:59 CLS Outpatient MARIELA BERGMNOA Busch POWERTRAIN ENGINEER [facility] RAD ABNORMAL MAMMO R92.8 [id number] 09/14/2016 08:02:00 09/14/2016 23:59:59 CLS Outpatient NATALYA BERG POWERTRAIN ENGINEER [facility] RAD R92.8 [id number] 04/08/2016 21:11:00 04/08/2016 23:42:00 DIS Emergency NICOLE BLANCA [facility] ER LEFT TOE PAIN;LEFT HIP PAIN [id number] 03/04/2016 15:29:00 03/04/2016 23:59:59 CLS Outpatient NATALYA BERG POWERTRAIN ENGINEER [facility] RAD SCREENING [id number] 10/19/2014 09:02:00 10/19/2014 23:59:59 CLS Outpatient CHIVO SILVA PROFESSOR OF VEGETABLE SCIENCE [facility] RAD FOLLOW UP 6 MONTH ABNORMAL MAMMO [id number] 04/16/2014 11:34:00 04/16/2014 23:59:59 CLS Outpatient CHIVO SILVA PROFESSOR OF VEGETABLE SCIENCE [facility] RAD ABNORMAL MAMMO [id number] 04/09/2014 11:12:00 04/09/2014 23:59:59 CLS Outpatient GREGOR DENG PROFESSOR OF VEGETABLE SCIENCE [facility] RAD POST MENOPAUSAL BLEEDING [id number] 04/09/2014 11:05:00 04/09/2014 23:59:59 CLS Outpatient GREGOR DENG PROFESSOR OF VEGETABLE SCIENCE [facility] RAD SCREENING [id number] 10/17/2014 16:38:00 Document Registration [id number] 08/12/2012 15:37:00 Document Registration [id number] 06/03/2012 11:53:00 Document Registration [id number] 06/02/2012 07:19:00 Document Registration [id number] 12/05/2011 14:23:00 Document Registration [id number] 06/06/2011 17:26:00 Document Registration [id number] 04/28/2011 10:53:00 Document Registration [id number] 12/14/2010 16:38:00 Document Registration
== END 2017-12-26 09:14 | disposition left against medical advice (07) ==
LOC: EDUNIT# 08:50 → ER 08:51
DX: R06.00 Dyspnea, unspecified (principal)
CPT/HCPCS: 99281

== ENCOUNTER → 2018-03-17 | Outpatient (CLI) | payer SELFPAY ==
[~2018-03-17] MED LIST changes: -INDO50CA PO; +INDO50CA11 PO
--- NOTE | 2018-03-17 10:52 | Diagnostic Imaging Report ---
PROCEDURE: MRI lumbar spine. TECHNIQUE: Multiplanar, multisequence MRI of the lumbar spine was performed without contrast. INDICATION: Low back and bilateral leg pain with paresthesia. COMPARISON: Comparison is made to study of 07/24/2009. FINDINGS: Lumbar spinal curvature and alignment remain within normal limits. Vertebral body heights and disc spaces are maintained. Conus medullaris has a normal appearance at the T12 level. There is mild annular bulging of the L3-4 disc which is eccentric toward the right without significant spinal or neural foraminal stenosis. At L4-5, there is mild diffuse annular bulging with a small left lateral disc protrusion which does result in mild to moderate left neural foraminal stenosis. At the L5-S1 level, there has been mild increase in diffuse disc bulging and right lateral disc protrusion. This causes mild left and moderate right neural foraminal stenosis. No marrow signal abnormalities identified and there is no evidence of paraspinous hematoma. IMPRESSION: 1. Mild worsening of lower lumbar degenerative disc disease with mild to moderate left neural foraminal stenosis secondary to left lateral protrusion of L4-5 disc. 2. At L5-S1, disc bulging and lateral disc protrusion results in mild left and moderate right neural foraminal stenoses. Dictated by: Dictated on workstation # [id number]
== END ==
LOC: RAD 09:36
PROVIDERS: ATTEND Nurse Practitioner Family
DX: M51.17 Intervertebral disc disorders with radiculopathy, lumbosacral region (principal); M99.87 Other biomechanical lesions of upper extremity
CPT/HCPCS: 72148

== ENCOUNTER 2018-08-09 12:28 | Outpatient (RCR) | payer OTHER | END 2018-08-26 15:54 | disposition home or self-care (01) | PROVIDERS: ATTEND Nurse Practitioner Family | DX: M54.2 Cervicalgia (principal) ==

== ENCOUNTER 2018-12-29 18:22 | Emergency (ER) | payer OTHER ==
[~2018-12-29] VITALS: Ht 165.1 cm; Wt 96.2 kg
--- NOTE | 2018-12-29 18:28 | NUR ---
PT REFUSES IV INSERTION. Addendum: 12/29/18 at 1912 by PAWAN PROVIDER IN ROOM DURING TRIAGE.
[2018-12-29] MEDS ORDERED: ASPIRIN 81 MG CHEW (CHILDREN'S ASA) PO ONE (18:45)
[2018-12-29] MEDS ORDERED: NITROGLYCERIN 0.4 MG SL TABS BTL 25'S SL PRN (18:45)
--- NOTE | 2018-12-29 18:48 | ED Chest Pain ---
General Chief Complaint: Chest Pain Stated Complaint: CHEST PAIN;ABNORMAL HEART RHYTHM Source: patient, other Exam Limitations: no limitations History of Present Illness Date Seen by Provider: Dec 29, 2018 Time Seen by Provider: 18:32 Initial Comments PT presents to ER by POV from clinic with an EKG and concerns of LA 2/2 CP for 3 days in left chest at the costal margin below the left breast. No trauma. Described as sharp knife stabbing through to the back. No other radiation. No SOB, cough or painful inspiration. No CAD hx. Has severe GERD. Has not taken any pain/antacid meds. Rates pain as modest. Not on control or recent immobilization. Mom with Hx of CAD but unsure how old with first LA. Recalls that mom always had heart dx. Quit smokking a year ago. No Thyroid D/O. High cholesterol but never started a medicine for it. No HTN. Pt takes Protonix and Ranitidine daily. Allergies and Home Medications Allergies Coded Allergies: NKANo Known Allergies (Unverified Allergy, Mild, 02/01/10) Home Medications Hydrocodone Bit/Acetaminophen 1 Each Tablet, 1 EACH PO Q4H PRN for PAIN Prescribed by: NICOLE MCDOWELL on 04/08/16 2335 Indomethacin 50 Mg Capsule, 50 MG PO TID continue for 1-2 days after symptoms resolve. Prescribed by: NICOLE MCDOWELL on 04/08/16 2333 Patient Home Medication List Home Medication List Reviewed: Yes Review of Systems Review of Systems Constitutional: No chills, No diaphoresis EENTM: No Blurred Vision, No Double Vision Respiratory: Denies Cough, Denies Orthopnea Cardiovascular: See HPI, Chest Pain; Denies Edema, Denies Irregular Heart Rate , Denies Lightheadedness, Denies Palpitations, Denies Syncope Gastrointestinal: Denies Constipated, Denies Diarrhea, Denies Nausea Genitourinary: Denies Burning, Denies Discharge Musculoskeletal: No back pain, No joint pain Skin: No pruritus, No rash Psychiatric/Neurological: Denies Headache, Denies Numbness, Denies Paresthesia Past Dwlwxbw-Fuqmft-Obmmsq Hx Patient Social History Alcohol Use: Denies Use Recreational Drug Use: No Smoking Status: Former Smoker Type Used: Cigarettes Former Smoker, Quit: Dec 13, 2017 Recent Foreign Travel: No Contact w/Someone Who Travel: No Past Medical History Section, Tonsillectomy Adverse Reaction/Blood Tranf: No Family Medical History No Pertinent Family Hx Physical Exam Vital Signs Vital Signs - First Documented Capillary Refill : Height, Weight, BMI Height: 5'5.00" Weight: 185lbs. oz. 83.700503jw; BMI Method:Stated General Appearance: No Apparent Distress, WD/WN, Anxious HEENT: PERRL/EOMI, Pharynx Normal, Moist Mucous Membranes Neck: Full Range of Motion, Non Tender, Supple Respiratory: Lungs Clear, Normal Breath Sounds, No Accessory Muscle Use, No Respiratory Distress, Other (CP reproducible to palpation.) Cardiovascular: Regular Rate, Rhythm, No Edema, No Gallop, No JVD, No Murmur, Normal Peripheral Pulses Gastrointestinal: Normal Bowel Sounds, Non Tender, Soft Neurologic/Psychiatric: Alert, Oriented x3 Skin: Normal Color, Warm/Dry Progress/Results/Core Measures Results/Orders Lab Results Laboratory Tests Test 12/29/18 18:44 Range/Units White Blood Count 6.1 4.3-11.0 10^3/uL Red Blood Count 4.41 4.35-5.85 10^6/uL Hemoglobin 13.3 11.5-16.0 G/DL Hematocrit 41 35-52 % Mean Corpuscular Volume 92 80-99 FL Mean Corpuscular Hemoglobin 30 25-34 PG Mean Corpuscular Hemoglobin Concent 33 32-36 G/DL Red Cell Distribution Width 12.8 10.0-14.5 % Platelet Count 301 130-400 10^3/uL Mean Platelet Volume 9.0 7.4-10.4 FL Neutrophils (%) (Auto) 53 42-75 % Lymphocytes (%) (Auto) 37 12-44 % Monocytes (%) (Auto) 9 0-12 % Eosinophils (%) (Auto) 1 0-10 % Basophils (%) (Auto) 0 0-10 % Neutrophils # (Auto) 3.2 1.8-7.8 X 10^3 Lymphocytes # (Auto) 2.3 1.0-4.0 X 10^3 Monocytes # (Auto) 0.5 0.0-1.0 X 10^3 Eosinophils # (Auto) 0.1 0.0-0.3 10^3/uL Basophils # (Auto) 0.0 0.0-0.1 10^3/uL Prothrombin Time 13.2 12.2-14.7 SEC INR Comment 1.0 0.8-1.4 Activated Partial Thromboplast Time 26 24-35 SEC Sodium Level 139 135-145 MMOL/L Potassium Level 3.9 3.6-5.0 MMOL/L Chloride Level 104 98-107 MMOL/L Carbon Dioxide Level 23 21-32 MMOL/L Anion Gap 12 5-14 MMOL/L Blood Urea Nitrogen 16 7-18 MG/DL Creatinine 1.00 0.60-1.30 MG/DL Estimat Glomerular Filtration Rate 59 BUN/Creatinine Ratio 16 Glucose Level 113 H 70-105 MG/DL Calcium Level 9.6 8.5-10.1 MG/DL Corrected Calcium 9.3 8.5-10.1 MG/DL Magnesium Level 2.2 1.8-2.4 MG/DL Total Bilirubin 0.2 0.1-1.0 MG/DL Aspartate Amino Transf (AST/SGOT) 24 5-34 U/L Alanine Aminotransferase (ALT/SGPT) 26 0-55 U/L Alkaline Phosphatase 87 40-136 U/L Myoglobin 33.5 10.0-92.0 NG/ML Troponin I < 0.028 <0.028 NG/ML B-Type Natriuretic Peptide 39.3 <100.0 PG/ML Total Protein 7.7 6.4-8.2 GM/DL Albumin 4.4 3.2-4.5 GM/DL Lipase 31 8-78 U/L My Orders Orders - MILLY BENOIT Cbc With Automated Diff (12/29/18 18:40) Magnesium (12/29/18 18:40) Ekg Tracing (12/29/18 18:40) Cardiac Profile 1 (12/29/18 18:40) Comprehensive Metabolic Panel (12/29/18 18:40) Myoglobin Serum (12/29/18 18:40) Protime With Inr (12/29/18 18:40) Partial Thromboplastin Time (12/29/18 18:40) O2 (12/29/18 18:40) Monitor-Rhythm Ecg Trace Only (12/29/18 18:40) Lipid Panel (12/30/18 06:00) Aspirin Chewable Tablet (Baby Aspirin Ch (12/29/18 18:45) Nitroglycerin 0.4 Mg Btl 25's (Nitrostat (12/29/18 18:45) Saline Lock/Iv-Start (12/29/18 18:40) Lipase (12/29/18 18:40) BNP (12/29/18 18:40) Chest Pa/Lat (2 View) (12/29/18 18:51) Lidocaine 2% Viscous 15 Ml (Xylocaine Vi (12/29/18 19:00) Famotidine Tablet (Pepcid Tablet) (12/29/18 18:58) Antacid Suspension (Mylanta Suspension (12/29/18 19:00) Medications Given in ED Current Medications Medications Dose Ordered Sig/Vida Route Start Time Stop Time Status Last Admin Dose Admin Al Hydrox/Mg Hydrox/Simethicone 30 ml ONCE ONCE PO 12/29/18 19:00 12/29/18 19:01 DC 12/29/18 19:15 30 ML Aspirin 324 mg ONCE ONCE PO 12/29/18 18:45 12/29/18 18:46 DC 12/29/18 18:55 324 MG Lidocaine HCl 15 ml ONCE ONCE PO 12/29/18 19:00 12/29/18 19:01 DC 12/29/18 19:15 15 ML Vital Signs/I&O 12/29/18 12/29/18 18:24 18:24 Temp 97.2 Pulse 99 Resp 18 B/P (MAP) 131/85 (100) Pulse Ox 97 O2 Delivery Room Air Room Air Progress Progress Note #1: Time: 18:48 Progress Note GERD Vs Chestwall Pain? never goes away so a single troponin might suffice. Pt declines IV 2/2 fear of needles. Allows a blood draw. 2v chest XR. ASA and NG. If no relief then GI cocktail. Then NSAIDS. Consider EGD. has a scheduled Colonoscopy. Without IV access we will hold off NG and go to GI cocktail instead. Echo 2007: EF 55%. Previous EKGs did not have T wave inversion from 2010. EDACS -2 points: Low risk by the EDACS Score. If the patient also has: (1) EKG without new ischemic changes and (2) negative initial and 2-hour troponins, then this patient is safe for discharge to early outpatient follow-up investigation (or proceed to earlier inpatient testing). If EKG with ischemic changes or positive troponin, they are not low risk and require normal risk stratification. Progress Note #2: Time: 19:37 Progress Note Pain resolved wfor the first time in 3 days after the GI cocktail. This pain has been going for more than 6 hours so a 2nd troponin rule out is not needed. Initial ECG Impression Date: Dec 29, 2018 Initial ECG Impression Time: 18:47 Initial ECG Rate: 98 Initial ECG Rhythm: Normal Sinus Initial ECG Intervals: Normal Initial ECG Impression: Normal, Nonspecific Changes Initial ECG Comparisson: No Previous ECG Available Comment NSR without sig ST changes. Inverted T waves in I and AVL. Obtained at the clinic. The time stamp is clearly wrong but Pt states it was just prior to coming here. EKG : EKG Time: 18:27 Rate: 89 Rhythm: Normal Sinus Intervals: Normal ECG Comparisson: Unchanged ECG Impression: Normal, Nonspecific Changes Comment No ST Elevation or depression but still T wave inversion. Diagnostic Imaging Diagonstic Imaging: Xray Plain Films/CT/US/NM/MRI: chest (2v) Comments NAME: [facility] REC#: [id number] PHYSICIAN: MILLY BENOIT MD CC: MATY COCHRAN DO; MILLY BENOIT Page 1 of 1 RADIOLOGY REPORT [facility] [place] [place] CC: MATY COCHRAN DO; MILLY BENOIT Page 1 of 1 RADIOLOGY REPORT NAME: [facility] REC#: [id number] PT STATUS: REG ER : 1970 PHYSICIAN: MILLY BENOIT MD ADMIT DATE: 12/29/18/ER Signed Date of Exam: 12/29/18 CHEST PA/LAT (2 VIEW) INDICATION: Chest pain today. TECHNIQUE: Two view chest 7:02 PM CORRELATION STUDY: 06/06/2011 FINDINGS: The heart size, mediastinal configuration and pulmonary vasculature are within normal limits. The lungs are clear with no consolidating infiltrate. There is no significant pleural effusion or pneumothorax. Visualized osseous structures are unremarkable. IMPRESSION: 1. Stable chest demonstrates no acute abnormality. Dictated by: Dictated on workstation # [id number] Dict: 12/29/181905 Trans: 12/29/181906 Interpreted by: MATY COCHRAN DO Electronically signed by: MATY COCHRAN DO 12/29/181906 Reviewed: Reviewed by Me Consults : Consulting Physician: JUAN BEDOYA MD [facility] Consults Notes Discussed case and EKG findins etc. HE is ok with outpt F/U tomorrow. start ASA and Metoprolol. Departure Impression Primary Impression: Chest pain Qualified Codes: R07.9 - Chest pain, unspecified Additional Impression: Gastroesophageal reflux disease Qualified Codes: K21.9 - Gastro-esophageal reflux disease without esophagitis Disposition: HOME, SELF-CARE Condition: Improved Departure-Patient Inst. Decision time for Depature: 19:39 Referrals: WINSOME HOWE APRN (PCP) Primary Care Physician [facility]MARIE (Family) Primary Care Physician KARLA GIFFORD ALI MD [facility] Patient Instructions: Chest Pain (DC) Add. Discharge Instructions: Call Dr Bedoya, Cardiology in the AM and be seen tomorrow in the clinic. Start taking 81mg Aspirin daily. Start taking the Metoprolol 25mg twice daily. Call Dr Gifford, General Surgery to setup an EGD for your GERD pain in the next 4 -6 weeks. Continue to take your antacid medicines. Start taking Carafate 30 minutes prior to meals and at bedtime for 2 weeks. All discharge instructions reviewed with patient and/or family. Voiced understanding. Scripts Aspirin (Aspir 81) 81 Mg Tablet. 81 MG PO DAILY for 30 Days, #30 TAB 0 Refills Prov: MILLY BENOIT 12/29/18 Metoprolol Tartrate (Metoprolol Tartrate) 25 Mg Tablet 25 MG PO BID for 30 Days, #60 TAB 0 Refills Prov: MILLY BENOIT 12/29/18 Sucralfate (Carafate) 1 Gm Tablet 1 GM PO QIDACHS for 14 Days, #56 TAB 0 Refills Prov: MILLY BENOIT 12/29/18 MILLY BENOIT Dec 29, 2018 18:47
[2018-12-29 18:50] LABS: BASOPHILS % (AUTO) 0 % (0-10); EOSINOPHILS # (AUTO) 0.1 10^3/uL (0.0-0.3); EOSINOPHILS % (AUTO) 1 % (0-10); HEMATOCRIT 41 % (35-52); HEMOGLOBIN 13.3 G/DL (11.5-16.0); LYMPHOCYTES # (AUTO) 2.3 X 10^3 (1.0-4.0); LYMPHOCYTES % (AUTO) 37 % (12-44); MEAN CORPUSCULAR HEMOGLOBIN 30 PG (25-34); MEAN CORPUSCULAR HGB CONC 33 G/DL (32-36); MEAN CORPUSCULAR VOLUME 92 FL (80-99); MONOCYTES # (AUTO) 0.5 X 10^3 (0.0-1.0); MONOCYTES % (AUTO) 9 % (0-12); NEUTROPHILS # (AUTO) 3.2 X 10^3 (1.8-7.8); NEUTROPHILS % (AUTO) 53 % (42-75); PLATELET COUNT 301 10^3/uL (130-400); RED CELL DISTRIBUTION WIDTH 12.8 % (10.0-14.5); WHITE BLOOD COUNT 6.1 10^3/uL (4.3-11.0)
--- NOTE | 2018-12-29 18:55 | NUR ---
PT REPORTS INTERMITTENT COUGH.
[2018-12-29] MEDS ORDERED: FAMOTIDINE 20 MG (PEPCID) TABLET PO STA (18:58)
[2018-12-29] MEDS ORDERED: ANTACID SUSP 30 ML UDC (MYLANTA) PO ONE (19:00)
[2018-12-29] MEDS ORDERED: LIDOCAINE 2% VISCOUS 15 ML UDC PO ONE (19:00)
[2018-12-29 19:02] LABS: PROTHROMBIN TIME PATIENT 13.2 SEC (12.2-14.7)
--- NOTE | 2018-12-29 19:09 | Diagnostic Imaging Report ---
INDICATION: Chest pain today. TECHNIQUE: Two view chest 7:02 PM CORRELATION STUDY: 06/06/2011 FINDINGS: The heart size, mediastinal configuration and pulmonary vasculature are within normal limits. The lungs are clear with no consolidating infiltrate. There is no significant pleural effusion or pneumothorax. Visualized osseous structures are unremarkable. IMPRESSION: 1. Stable chest demonstrates no acute abnormality. Dictated by: Dictated on workstation # [id number]
[2018-12-29 19:16] LABS: ALANINE AMINOTRANSFERASE 26 U/L (0-55); ALBUMIN 4.4 GM/DL (3.2-4.5); ALKALINE PHOSPHATASE 87 U/L (40-136); BILIRUBIN,TOTAL 0.2 MG/DL (0.1-1.0); BUN/CREATININE RATIO 16; CALCIUM 9.6 MG/DL (8.5-10.1); CARBON DIOXIDE 23 MMOL/L (21-32); CHLORIDE 104 MMOL/L (98-107); GFR ESTIMATED 59; GLUCOSE 113 MG/DL (70-105); LIPASE 31 U/L (8-78); MAGNESIUM 2.2 MG/DL (1.8-2.4); POTASSIUM 3.9 MMOL/L (3.6-5.0); SODIUM 139 MMOL/L (135-145); TOTAL PROTEIN 7.7 GM/DL (6.4-8.2)
[2018-12-29 19:22] LABS: MYOGLOBIN SERUM 33.5 NG/ML (10.0-92.0)
[2018-12-29] MEDS ORDERED: METO-333 PO (19:44)
[2018-12-29] MEDS ORDERED: ASPI-586 PO (19:44)
[2018-12-29] MEDS ORDERED: SUCR1TAB36 PO (19:44)
[2018-12-29 19:54] VITALS: BP 135/85
== END 2018-12-29 19:55 | disposition home or self-care (01) ==
LOC: EDUNIT# 18:22 → ER 18:24
DX: R07.9 Chest pain, unspecified (principal); K21.9 Gastro-esophageal reflux disease without esophagitis; I25.2 Old myocardial infarction; E78.00 Pure hypercholesterolemia, unspecified; Z87.891 Personal history of nicotine dependence; Z90.89 Acquired absence of other organs; Z91.14 Patient's other noncompliance with medication regimen; Z82.49 Family history of ischemic heart disease and other diseases of the circulatory system
CPT/HCPCS: 36415; 71046; 80053; 83690; 83735; 83874; 83880; 84484; 85025; 85610; 85730; 93005; 93041

== ENCOUNTER 2019-01-03 08:46 | Day surgery (SDC) | payer OTHER ==
[~2019-01-03] VITALS: Ht 165.1 cm; Wt 98.4 kg
[2019-01-03] VITALS (10 sets, daily range): BP systolic 113–132; BP diastolic 64–88
[~2019-01-03 08:46] MED LIST changes: +ASPI-586 PO; +METO-333 PO; +SUCR1TAB36 PO
[2019-01-03] MEDS ORDERED: LIDOCAINE 1% INJ 20 ML 20 ML VIAL ONE (08:50)
[2019-01-03] MEDS ORDERED: NS IV 1000 ML 1,000 ML ONE (08:50)
[2019-01-03] MEDS ORDERED: HEParin (CATH LAB) 2,000 ML IV ONE (08:50)
--- OUTSIDE RECORDS SUMMARY | 2019-01-03 09:12 | XMS REPORT ---
Author Author CELINA OSCAR [facility] Address [address] [place] [address] Care Team Providers Care Department Traffic Freight Router Name Role Phone CELINA OSCAR Unavailable PROBLEMS Type Condition ICD9-CM Code TUG46-MY Code Onset Dates Condition Status SNOMED Code Problem Abdominal obesity E65 Active 055074140 Problem Body mass index (BMI) of 33.0-33.9 in adult Z68.33 Active 180525631 Problem Chronic fatigue R53.82 Active 70808462 Problem Elevated LDL cholesterol level E78.00 Active 131868002 Problem GERD with esophagitis K21.0 Active 714108456 Problem Stress incontinence in female N39.3 Active 66581009 Problem Lumbago with sciatica, right side M54.41 Active 208226361151677 Problem Lumbago with sciatica, left side M54.42 Active 504390951 Problem Other obesity due to excess calories E66.09 Active 651817276 Problem Other chronic pain G89.29 Active 92595584 ALLERGIES No Known Allergies ENCOUNTERS Encounter Location Date Diagnosis [facility] [id number] [address] Sep, [facility] [id number] [place] [address] 15 Sep, 2018 Encounter for general adult medical examination without abnormal findings Z00.00 [facility] [id number] [place] [address]1841- 5696 10 Jul, 2018 Visit for TB skin test Z11.1 [facility] [id number] [place] [address] 64866- 4147 Jun, [facility] [id number], [place] [address] Jun, Peroneal tendinitis of left lower extremity M76.72 [place] [id number] [place] [address]209- 2045 May, GERD with esophagitis K21.0 ; Lumbago with sciatica, left side M54.42 and Lumbago with sciatica, right side M54.41 [place] [id number] [place] [address] 31169- 8932 March, [place] [address] [address] March, Lumbago with sciatica, left side M54.42 [place] [address] [address] Feb, [place] [id number] [place] [address]90- 7390 Feb, [place] [address] [address] Feb, Encounter for well woman exam without gynecological exam Z00.00 ; Screening breast examination Z12.31 ; Lumbago with sciatica, right side M54.41 and Stress incontinence in female N39.3 [place] [id number] [place] [address] 77899- 8956 06 Feb, 2018 Lumbago with sciatica, left side M54.42 ; Lumbago with sciatica, right side M54.41 ; Other chronic pain G89.29 ; Other obesity due to excess calories E66.09 and Body mass index (BMI) of 33.0-33.9 in adult Z68.33 [facility] [place] [id number] [place] [address] Dec, [facility] [place] [id number] [place] [address]78 -5582 Dec, [place] [id number] [place] [address] 77942- 0027 Aug, Pain in right foot M79.671 [place] [id number] [place] [address] 08023- 2901 Aug, Physical exam, routine Z00.00 ; Tobacco abuse Z72.0 ; Tobacco abuse counseling Z71.6 ; Chronic fatigue R53.82 ; Bump R22.9 and Abdominal obesity E65 [place] [id number] [place] [address] 69515- 8334 March, Abnormal mammogram R92.8 [place] [id number] [place] [address] 32619- 3765 Feb, Routine gynecological examination Z01.419 ; Visit for gynecologic examination Z01.419 ; Obesity due to excess calories, unspecified obesity severity E66.09 and Pain in right foot M79.671 [place] [id number] [place] [address] 18081- 8330 Dec, Bronchitis J40 [place] [address] [address]- [address] Aug, Abnormal mammogram R92.8 [place] [id number] [place] [address] 27971- 8532 Aug, Abnormal mammogram R92.8 [place] [id number] [place] [address] 83652- 7602 Aug, [place] [id number] [place] [address] 55362- 9271 Jun, [place] [id number] [place] [address] 71488- 9340 May, Primary insomnia F51.01 ; Fatigue R53.83 ; Major depressive disorder with single episode, remission status unspecified F32.9 ; Coughing R05 ; Coughing up blood R04.2 ; Wellness examination Z00.00 ; Tobacco use Z72.0 and Tobacco abuse counseling Z71.6 [place] [address] [address] 24 Jan, 2016 Fatigue R53.83 ; Family history of diabetes mellitus Z83.3 ; Wellness examination Z00.00 ; Heart murmur R01.1 and Stress incontinence N39.3 [facility] [id number] [place] [address] 64893- 1212 Jun, Back pain of lumbar region with sciatica 724.2 [facility] [id number], [place] [address] May, Fatigue 780.79 [facility] [id number] [place] [address] 26852- 4535 Feb, [facility] [id number] [place] [address] 86610- 5901 Feb, [facility] [id number] [place] [address] 19373- 5495 Jan, [facility] [id number] [place] [address] 23078- 4267 Jan, [facility] [id number] [place] [address] 78232- 1077 Sep, [facility] [id number] [place] [address] 04696- 1339 Sep, [facility] [address], [place] [address] Sep, [facility] [address], [place] [address] Sep, [facility] [address], [place] [address] Sep, [facility] [address], [place] [address] Sep, [facility] [address], [place] [address] Sep, [facility] [address], [place] [address] Sep, [facility] [place] [facility] [address] [id number] [place] [address] Aug, [facility] [address] [id number] [place] [address]- 0275 Aug, [facility] [place] [facility] [address] [id number] [place] [address]- 7480 Aug, [facility] [address] [id number] [place] [address]- 5188 Aug, [facility] [place] [facility] [address] [id number] [place] [address]- 9726 Aug, [facility] [address] [id number] [place] [address]- 6513 March, [facility] [address] [id number] [place] [address] March, [facility] [place] [facility] [address] [id number] [place] [address] 2945 March, [facility] [address] [id number] [place] [address]- 6251 March, [facility] [place] [facility] [address] [id number] [place] [address]- 9204 March, [facility] [address] [id number] [place] [address]- 4342 March, [facility] [place] [facility] [address] [id number] [place] [address]- 4673 March, [facility] [place] [facility] [address] [id number] [place] [address]- 4926 March, [facility] [place] [facility] [address] [id number] [place] [address]- 8810 March, [facility] [place] [facility] [address] [id number] [place] [address]- 4448 March, [facility] [place] [facility] [address] [id number] [place] [address]- 4095 March, [facility] [place] [facility] [address] [id number] [place] [address]- 4617 March, [facility] [place] [facility] [address] [id number] [place] [address]- 5717 March, [facility] [place] [facility] [address] [id number] [place] [address]- 7219 March, [facility] [place] [facility] [address] [id number] [place] [address]- 4589 Jan, [facility] [place] [facility] [address] [id number] [place] [address]- 8778 Jan, [facility] [place] [facility] [address] [id number] [place] [address]- 5905 Jan, [facility] [place] [facility] [address] [id number] [place] [address]- 3657 Jan, [facility] [place] [facility] [address] [id number] [place] [address]- 8485 Jan, [facility] [place] [facility] [address] [id number] [place] [address]- 4671 Jan, [facility] [place] [facility] [address] [id number] [place] [address]- 3166 Dec, [facility] [place] [facility] [address] [id number] [place] [address]- 1311 Dec, [facility] [place] [facility] [address] [id number] [place] [address]- 0183 Dec, [facility] [place] [facility] [address] [id number] [place] [address]- 1082 Dec, [facility] [place] [facility] [address] [id number] [place] [address]- 6572 Dec, [facility] [place] [facility] [address] [id number] [place] [address]- 8497 Dec, [facility] [place] [facility] [address] [id number] [place] [address]- 5776 12 Dec, 2013 [facility] [place] [facility] [address] [id number] [place] [address]- 2456 Dec, [facility] [place] [facility] [address] [id number] [place] [address] 2546 11 Dec, 2013 [facility] [place] [facility] [address] [id number] [place] [address]- 5516 Dec, [facility] [place] [facility] [address] [id number] [place] [address]- 2543 Dec, [facility] [place] [facility] [address] [id number] [place] [address]- 6648 Jan, [facility] [place] [facility] [address] [id number] [place] [address]- 8702 28 Dec, 2012 [facility] [place] [facility] [address] [id number] [place] [address]- 0099 Dec, [facility] [place] [facility] [address] [id number] [place] [address]- 7966 Nov, [facility] [place] [facility] [address] [facility] [id number] [place] [address]- 1249 Feb, [facility] [place] [facility] [address] [id number] [place] [address]- 4858 Dec, [facility] [place] [facility] [address] [id number] [place] [address]- 9048 Dec, [facility] [place] [facility] [address] [id number] [place] [address]- 0302 Nov, [facility] [place] [facility] [address] [id number] [place] [address]- 3406 Apr, [facility] [place] [facility] [address] [id number] [place] [address]- 5398 24 Sep, 2010 [facility] [place] [facility] [address] [id number] [place] [address]- 6459 04 Sep, 2010 [facility] [address] [facility] [id number] [place] [address]- 2546 March, [facility] [address] [facility] [id number] [address]- 2546 Oct, [facility] [address] [facility] [id number] [place] [address]- 2546 17 Jul, 2009 [facility] [address] [facility] [id number], [place] [address]- [address]46 14 Jul, 2009 IMMUNIZATIONS No Known Immunizations SOCIAL HISTORY Never Assessed 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 PLAN OF CARE Activity Details Follow Up prn Reason: VITAL SIGNS Height 64 in 2018-10-13 Weight 212.0 lbs 2018-10-13 Temperature 97.1 degrees Fahrenheit 2018-10-13 Heart Rate 85 bpm 2018-10-13 Respiratory Rate 18 2018-10-13 Oximetry on room air:98 % 2018-10-13 BMI 36.39 kg/m2 2018-10-13 Blood pressure systolic 120 mmHg 2018-10-13 Blood pressure diastolic 78 mmHg 2018-10-13 MEDICATIONS Medication Instructions Dosage Frequency Start Date End Date Duration Status Aleve 220 MG Orally every 12 hrs 1 tablet with food or milk as needed 12h Not-Taking Ranitidine 75 75 MG Orally Twice a day 1 tablet as needed 12h Active Protonix 40 MG Orally Once a day 1 tablet 24h May, 90 days Active RESULTS No Results PROCEDURES No Known procedures INSTRUCTIONS MEDICATIONS ADMINISTERED No Known Medications MEDICAL (GENERAL) HISTORY Type Description Date Medical History arthritis Medical History GERD Medical History Chronic Fatigue Medical History Lumbago Medical History Tobacco abuse- quit 2018 Medical History Abnormal mammogram Surgical History section Surgical History exploratory laparoscopy Surgical History skin cancer- basal cell Surgical History tonsillectomy Hospitalization History Surgery(s)/Childbirth(s) only
--- OUTSIDE RECORDS SUMMARY | 2019-01-03 09:13 | XMS REPORT ---
Author Author KENIA ALLEN Organization [facility] [place] Address [address] [place] [address] Care Team Providers Care Management Manager Name Role Phone ALEJANDRO KENIA Unavailable PROBLEMS Type Condition ICD9-CM Code ZCU04-PP Code Onset Dates Condition Status SNOMED Code Problem Abdominal obesity E65 Active 598808084 Problem Body mass index (BMI) of 33.0-33.9 in adult Z68.33 Active 010810735 Problem Chronic fatigue R53.82 Active 99537569 Problem Elevated LDL cholesterol level E78.00 Active 771568671 Problem GERD with esophagitis K21.0 Active 454514776 Problem Stress incontinence in female N39.3 Active 75203194 Problem Lumbago with sciatica, right side M54.41 Active 498693663499506 Problem Lumbago with sciatica, left side M54.42 Active 628824370 Problem Other obesity due to excess calories E66.09 Active 128646533 Problem Other chronic pain G89.29 Active 23126090 ALLERGIES No Information ENCOUNTERS Encounter Location Date Diagnosis [place] [id number] [place] [address] 05407- 0719 Jul, [place] [address] [place] [id number] [place] [address] 13559- 9802 Jul, Visit for TB skin test Z11.1 [place] [address] [place] [id number] [place] [address] 89798- 9819 Jun, [place] [address] [place] [id number] [place] [address] 10694- 5976 Jun, Peroneal tendinitis of left lower extremity M76.72 [place] [id number] [place] [address] 32639- 7666 May, GERD with esophagitis K21.0 ; Lumbago with sciatica, left side M54.42 and Lumbago with sciatica, right side M54.41 [place] [address] [place] [id number] [place] [address] 77876- 6080 March, [place] [address] [place] [id number] [place] [address] 96497- 0782 March, Lumbago with sciatica, left side M54.42 [place] [address] [place] [id number] [place] [address] 36492- 9279 Feb, [place] [address] [place] [id number] [place] [address] 98691- 1188 Feb, [place] [address] [place] [id number] [place] [address] 31403- 8614 Feb, Encounter for well woman exam without gynecological exam Z00.00 ; Screening breast examination Z12.31 ; Lumbago with sciatica, right side M54.41 and Stress incontinence in female N39.3 [place] [address] [place] [id number] [place] [address] 82950- 3160 Feb, Lumbago with sciatica, left side M54.42 ; Lumbago with sciatica, right side M54.41 ; Other chronic pain G89.29 ; Other obesity due to excess calories E66.09 and Body mass index (BMI) of 33.0-33.9 in adult Z68.33 [facility] [place] [id number] [place] [address] 16084 -1916 Dec, [facility] [place] [address] [place] [id number] [place] [address] 58939 -5324 Dec, [place] [address] [place] [id number] [place] [address] 01984- 9156 Aug, Pain in right foot M79.671 [place] [address] [place] [id number] [place] [address] 18016- 3656 Aug, Physical exam, routine Z00.00 ; Tobacco abuse Z72.0 ; Tobacco abuse counseling Z71.6 ; Chronic fatigue R53.82 ; Bump R22.9 and Abdominal obesity E65 [place] [address] 62663- 8355 March, Abnormal mammogram R92.8 [place] [address] [place] [id number] [place] [address] 00977- 8957 Feb, Routine gynecological examination Z01.419 ; Visit for gynecologic examination Z01.419 ; Obesity due to excess calories, unspecified obesity severity E66.09 and Pain in right foot M79.671 [place] [address] 58138- 4362 Dec, Bronchitis J40 [place] [address] 53452- 0514 Aug, Abnormal mammogram R92.8 [place] [address] 93082- 2805 Aug, Abnormal mammogram R92.8 [place] [address] 50410- 5306 Aug, [place] [address] 86019- 5386 Jun, [place] [address] 50221- 6222 May, Primary insomnia F51.01 ; Fatigue R53.83 ; Major depressive disorder with single episode, remission status unspecified F32.9 ; Coughing R05 ; Coughing up blood R04.2 ; Wellness examination Z00.00 ; Tobacco use Z72.0 and Tobacco abuse counseling Z71.6 [place] [address] 02839- 6858 Jan, Fatigue R53.83 ; Family history of diabetes mellitus Z83.3 ; Wellness examination Z00.00 ; Heart murmur R01.1 and Stress incontinence N39.3 [place] [address] 90640- 5706 Jun, Back pain of lumbar region with sciatica 724.2 [facility] [id number] [place] [address] 996619- 2353 May, Fatigue 780.79 [facility] [place] [facility] [address] [id number] [place] [address] 2546 14 Feb, 2015 [facility] [place] [facility] [address] [id number] [place] [address], [place] [address]- 1936 Feb, [facility] [place] [facility] [address] [id number] [place] [address], [place] [address] 2540 Jan, [facility] [place] [facility] [address] [facility] [id number] [place] [address], [place]- 4021 Jan, [facility] [place] [facility] [address] [facility] [id number] [place] [address], [place] [address]- 3396 Sep, [facility] [place] [facility] [address] [place] [id number] [place] [address], [place] [address]- 8596 Sep, [facility] [place] [facility] [address] [facility] [id number] [place] [address] 45406- 5422 Sep, [facility] [place] [facility] [address] [facility] [id number] [place] [address] 08714- 4519 Sep, [facility] [place] [facility] [address] [id number] [address] 0008 Sep, [facility] [place] [facility] [address] [facility] [id number], [place] [address]- 1385 Sep, [facility] [place] [facility] [address] [facility] [id number], [place] [address]- 5529 Sep, [facility] [place] [facility] [address] [facility] [id number] [place] [address] 289147- 1914 Sep, [facility] [place] [facility] [address] [facility] [id number], [place] [address]- 254 Aug, [facility] [place] [facility] [address] [facility] [id number] [place] [address] 32822- 0909 Aug, [facility] [place] [facility] [address] [id number] [place] [address]- 4412 Aug, [facility] [place] [facility] [address] [id number] [place] [address]- 4959 Aug, [facility] [place] [facility] [address] [id number] [place] [address]- 5969 Aug, [facility] [place] [facility] [address] [id number] [place] [address]- 1235 March, [facility] [place] [facility] [address] [id number] [place] [address]- 0857 March, [facility] [place] [facility] [address] [id number] [place] [address]- 3989 March, [facility] [place] [facility] [address] [id number] [place] [address]- 2350 March, [facility] [place] [facility] [address] [id number] [place] [address]- 5955 March, [facility] [place] [facility] [address] [id number] [place] [address]- 7828 March, [facility] [place] [facility] [address] [id number] [place] [address]- 7880 March, [facility] [place] [facility] [address] [id number] [place] [address]- 7527 March, [facility] [place] [facility] [address] [id number] [place] [address]- 2465 March, [facility] [place] [facility] [address] [id number] [place] [address]- 1374 March, [facility] [place] [facility] [address] [id number] [place] [address]- 9312 March, [facility] [place] [facility] [address] [id number] [place] [address]- 1642 March, [facility] [place] [facility] [address] [id number] [place] [address]- 0283 March, [facility] [place] [facility] [address] [id number] [place] [address]- 3854 March, [facility] [place] [facility] [address] [id number] [place] [address]- 4979 Jan, [facility] [place] [facility] [address] [id number] [place] [address]- 8877 Jan, [facility] [place] [facility] [address] [id number] [place] [address]- 2357 Jan, [facility] [place] [facility] [address] [id number] [place] [address]- 6280 Jan, [facility] [place] [facility] [address] [facility] [id number] [place] [address]- 7513 Jan, [facility] [place] [facility] [address] [id number] [place] [address]- 0191 Jan, [facility] [place] [facility] [address] [id number] [place] [address]- 1718 Dec, [facility] [place] [facility] [address] [id number] [place] [address]- 4949 Dec, [facility] [place] [facility] [address] [facility] [id number] [place] [address]- 8407 Dec, [facility] [place] [facility] [address] [facility] [id number] [place] [address]- 0948 Dec, [facility] [place] [facility] [address] [id number] [place] [address]- 0131 Dec, [facility] [place] [facility] [address] [id number] [place] 6404 Dec, [facility] [place] [facility] [address] [facility] [id number] [place] 1536 Dec, [facility] [place] [facility] [address] [facility] [id number] [place] [address]- 4985 Dec, [facility] [place] [facility] [address] [id number] [place] [address]- 5937 Dec, [facility] [place] [facility] [address] [id number] [place] [address]- 7116 Dec, [facility] [place] [facility] [address] [id number] [place] [address]- 2216 Dec, [facility] [place] [facility] [address] [id number] [place] [address]- 3521 Jan, [facility] [place] [facility] [address] [id number] [place] [address]- 5245 Dec, [facility] [place] [facility] [address] [id number] [place] [address]- 2826 Dec, [facility] [place] [facility] [address] [id number] [place] [address]- 0666 Nov, [facility] [place] [facility] [address] [id number] [place] [address]- 7948 Feb, [facility] [place] [facility] [address] [id number] [place] [address]- 2072 Dec, [facility] [place] [facility] [address] [facility] [id number] [place] [address]- 7882 Dec, [facility] [place] [facility] [address] [id number] [place] [address]- 4166 Nov, [facility] [place] [facility] [address] [id number] [place] [address]- 3813 Apr, [facility] [place] [facility] [address] [id number] [place] [address]- 2332 Sep, [facility] [place] [facility] [address] [id number] [place] [address]- 4751 04 Sep, 2010 [facility] [place] [facility] [address] [facility] [id number] [place] [address]- 1540 March, [facility] [place] [facility] [address] [facility] [id number] [place] [address]- 8296 Oct, [facility] [place] [address] [facility] [id number] [place] [address]- 5356 17 Jul, 2009 [facility] [place] [address] [facility] [id number] [place] [address]- 5257 14 Jul, 2009 IMMUNIZATIONS No Known Immunizations SOCIAL HISTORY Never Assessed REASON FOR VISIT right foot pain-xray done - OSBALDO Dickson PLAN OF CARE Activity Details Follow Up 4 Weeks Reason: VITAL SIGNS Height 64 in 2018-07-08 Blood pressure systolic 120 mmHg 2018-07-08 Blood pressure diastolic 88 mmHg 2018-07-08 MEDICATIONS Unknown Medications RESULTS No Results PROCEDURES Procedure Date Ordered Result Body Site STRAPPING OF ANKLE AND/OR FT Jul 08, 2018 FT ARCH SUPP PREMOLD LNGTUDNL/MT EA Jul 08, 2018 INSTRUCTIONS MEDICATIONS ADMINISTERED No Known Medications MEDICAL (GENERAL) HISTORY Type Description Date Medical History arthritis Medical History GERD Medical History Chronic Fatigue Medical History Lumbago Medical History Tobacco abuse- quit 2017 Surgical History section Surgical History exploratory laparoscopy Surgical History skin cancer- basal cell Surgical History tonsillectomy Hospitalization History Surgery(s)/Childbirth(s) only
--- OUTSIDE RECORDS SUMMARY | 2019-01-03 09:13 | XMS REPORT ---
Author Author WINSOME HOWE Organization [facility] Address [address] [place] [address] Care Team Providers Care Logistics Loss Prevention Manager Name Role Phone HOWESHANA PhillipELE Unavailable PROBLEMS Type Condition ICD9-CM Code SKA49-QT Code Onset Dates Condition Status SNOMED Code Problem Abdominal obesity E65 Active 880030683 Problem Body mass index (BMI) of 33.0-33.9 in adult Z68.33 Active 782045324 Problem Chronic fatigue R53.82 Active 02249537 Problem Elevated LDL cholesterol level E78.00 Active 177005333 Problem GERD with esophagitis K21.0 Active 975179093 Problem Stress incontinence in female N39.3 Active 89706465 Problem Lumbago with sciatica, right side M54.41 Active 512598577567322 Problem Lumbago with sciatica, left side M54.42 Active 228901725 Problem Other obesity due to excess calories E66.09 Active 897301934 Problem Other chronic pain G89.29 Active 56600302 ALLERGIES No Information ENCOUNTERS Encounter Location Date Diagnosis [place] [id number] [place] [address] 62722- 4721 Jul, Visit for TB skin test Z11.1 [place] [address] [place] [id number] [place] [address] 59042- 3193 Jun, [place] [address] [place] [id number] [place] [address] 10118- 2923 Jun, Peroneal tendinitis of left lower extremity M76.72 [place] [id number] [place] [address] 43500- 5294 May, GERD with esophagitis K21.0 ; Lumbago with sciatica, left side M54.42 and Lumbago with sciatica, right side M54.41 [place] [address] [place] [id number] [place] [address] 61572- 8575 March, [place] [address] 43561- 9831 March, Lumbago with sciatica, left side M54.42 [place] [address] [place] [id number] [place] [address] 41385- 0923 Feb, [place] [address] 46976- 3353 Feb, [place] [address] 14130- 8024 13 Feb, 2018 Encounter for well woman exam without gynecological exam Z00.00 ; Screening breast examination Z12.31 ; Lumbago with sciatica, right side M54.41 and Stress incontinence in female N39.3 [place] [address] 15901- 2676 06 Feb, 2018 Lumbago with sciatica, left side M54.42 ; Lumbago with sciatica, right side M54.41 ; Other chronic pain G89.29 ; Other obesity due to excess calories E66.09 and Body mass index (BMI) of 33.0-33.9 in adult Z68.33 [facility] [place] [address] [place] [id number] [place] [address] 34151 -2201 Dec, [facility] [address] [place] [id number] [place] [address] 03754 -3909 Dec, [place] [address] [place] [id number] [place] [address] 62373- 1254 Aug, Pain in right foot M79.671 [place] [address] [place] [id number] [place] [address] 33286- 6867 Aug, Physical exam, routine Z00.00 ; Tobacco abuse Z72.0 ; Tobacco abuse counseling Z71.6 ; Chronic fatigue R53.82 ; Bump R22.9 and Abdominal obesity E65 [place] [address] [address] March, Abnormal mammogram R92.8 [place] [address] [place] [id number] [place] [address] 60082- 9477 28 Feb, 2017 Routine gynecological examination Z01.419 ; Visit for gynecologic examination Z01.419 ; Obesity due to excess calories, unspecified obesity severity E66.09 and Pain in right foot M79.671 [place] [address] [place] [id number] [place] [address] 53490- 9163 Dec, Bronchitis J40 [place] [address] [place] [id number] [place] [address] 23612- 7253 Aug, Abnormal mammogram R92.8 [place] [address] [place] [id number] [place] [address] 62013- 3128 Aug, Abnormal mammogram R92.8 [place] [address] [place] [id number] [place] [address] 17921- 8873 Aug, [place] [address] [place] [id number] [place] [address] 09498- 0142 Jun, [place] [address] [place] [id number] [place] [address] 24531- 5097 May, Primary insomnia F51.01 ; Fatigue R53.83 ; Major depressive disorder with single episode, remission status unspecified F32.9 ; Coughing R05 ; Coughing up blood R04.2 ; Wellness examination Z00.00 ; Tobacco use Z72.0 and Tobacco abuse counseling Z71.6 [place] [address] [place] [address] 08310- 4794 Jan, Fatigue R53.83 ; Family history of diabetes mellitus Z83.3 ; Wellness examination Z00.00 ; Heart murmur R01.1 and Stress incontinence N39.3 [place] [address] [place] [address] 69365- 3283 04 Jun, 2015 Back pain of lumbar region with sciatica 724.2 [place] [id number] [place] [address] 5598 16 May, 2015 Fatigue 780.79 [facility] [place] [facility] [address] [id number] [place] [address] 3856 14 Feb, 2015 [facility] [place] [facility] [address] [id number] [place] [address] 2546 13 Feb, 2015 [facility] [place] [facility] [address] [id number] [place] [address] 2547 05 Jan, 2015 [facility] [place] [facility] [address] [id number] [place] [address]- 2445 Jan, 2014 [facility] [place] [facility] [address] [id number] [place] [address]- 0116 Sep, [facility] [place] [facility] [address] [id number] [place] [address]- 7380 Sep, [facility] [place] [facility] [address] [id number] [place] [address]- 1272 Sep, [facility] [place] [facility] [address] [id number] [place] [address]- 9825 Sep, [facility] [place] [facility] [address] [id number] [place] [address]- 2590 Sep, [facility] [place] [facility] [address] [facility] [id number] [place] [address]- 6268 Sep, [facility] [place] [facility] [address] [id number] [place] [address]- 6789 Sep, [facility] [place] [facility] [address] [id number] [place] [address]- 2217 Sep, [facility] [place] [facility] [address] [id number] [place] [address] Aug, [facility] [place] [facility] [address] [id number] [place] [address]- 3934 30 Aug, 2014 [facility] [place] [facility] [address] [id number] [place] [address]- 0748 Aug, [facility] [place] [facility] [address] [id number] [place] [address]- 9444 Aug, [facility] [place] [facility] [address] [id number] [place] [address]- 6109 Aug, [facility] [place] [facility] [address] [id number] [place] [address]- 9463 March, [facility] [place] [facility] [address] [id number] [place] [address]- 5929 March, [facility] [place] [facility] [address] [id number] [place] [address]- 8687 March, [facility] [place] [facility] [address] [id number] [place] [address]- 1528 March, [facility] [place] [facility] [address] [id number] [place] [address]- 7672 March, [facility] [place] [facility] [address] [id number] [place] [address]- 7007 March, [facility] [place] [facility] [address] [id number] [place] [address]- 5151 March, [facility] [place] [facility] [address] [id number] [place] [address]- 5869 March, [facility] [place] [facility] [address] [id number] [place] [address]- 3766 March, [facility] [place] [facility] [address] [id number] [place] [address]- 7914 March, [facility] [place] [facility] [address] [id number] [place] [address]- 6973 March, [facility] [place] [facility] [address] [id number] [place] [address]- 9332 March, [facility] [place] [facility] [address] [id number] [place] [address]- 6200 March, [facility] [place] [facility] [address] [id number] [place] [address]- 1394 March, [facility] [place] [facility] [address] [id number] [place] [address]- 7049 Jan, [facility] [place] [facility] [address] [id number] [place] [address] Jan, [facility] [place] [facility] [address] [facility] [id number] [place] [address]- 2781 Jan, [facility] [place] [facility] [address] [id number] [place] [address]- 7015 Jan, [facility] [place] [facility] [address] [id number] [place] [address]- 6214 Jan, [facility] [place] [facility] [address] [facility] [id number] [place] [address]- 7422 Jan, [facility] [place] [facility] [address] [facility] [id number] [place] [address]- 8267 Dec, [facility] [place] [facility] [address] [id number] [place] [address]- 8031 Dec, [facility] [place] [facility] [address] [facility] [id number] [place] [address]- 2273 Dec, [facility] [place] [facility] [address] [facility] [id number] [place] [address]- 3566 Dec, [facility] [place] [facility] [address] [facility] [id number] [place] [address]- 0452 Dec, [facility] [place] [facility] [address] [facility] [id number] [place] [address]- 2541 Dec, [facility] [place] [facility] [address] [id number] [place] 6[address] Dec, [facility] [place] [facility] [address] [facility] [id number] [place] [address]67 Dec, [facility] [place] [facility] [address] [facility] [id number] [place] [address]- 8207 Dec, [facility] [address] [id number] [place] [address]- 5950 Dec, [facility] [place] [facility] [address] [id number] [place] [address]- 0336 Dec, [facility] [place] [facility] [address] [facility] [id number] [place] [address]- 7990 Jan, [facility] [place] [facility] [address] [id number] [place] [address]- 5093 Dec, [facility] [place] [facility] [address] [id number] [place] [address]- 8752 Dec, [facility] [place] [facility] [address] [facility] [id number] [place] [address]- 2828 Nov, [facility] [address] [facility] [id number] [place] [address]- 4270 Feb, [facility] [place] [facility] [address] [facility] [id number] [place] [address]- 4553 Dec, [facility] [address] [facility] [id number] [place] [address]- 7380 Dec, [facility] [place] [facility] [address] [facility] [id number] [place] [address]- 1662 Nov, [facility] [address] [facility] [id number] [place] [address]- 9658 Apr, [facility] [place] [facility] [address] [facility] [id number] [place] [address]- 6509 Sep, [facility] [place] [facility] [address] [facility] [id number] [place] [address]- 8646 Sep, [facility] [place] [facility] [address] [facility] [id number] [place] [address]- 8379 March, [facility] [place] [facility] [address] [facility] [id number] [place] [address]- 4329 Oct, [facility] [place] [facility] [address] [facility] [id number] [place] [address]- 2339 17 Jul, 2009 [facility] [address] [facility] [id number] [address]- 4859 14 Jul, 2009 IMMUNIZATIONS No Known Immunizations SOCIAL HISTORY Never Assessed REASON FOR VISIT TB skin test PLAN OF CARE Activity Details Follow Up 48-72 hours Reason:TB read VITAL SIGNS MEDICATIONS Unknown Medications RESULTS No Results PROCEDURES Procedure Date Ordered Result Body Site TB INTRADERMAL 2018-08-08 negative TB INTRADERMAL TEST Aug 08, 2018 INSTRUCTIONS MEDICATIONS ADMINISTERED No Known [...]
--- OUTSIDE RECORDS SUMMARY | 2019-01-03 09:13 | XMS REPORT ---
Author Author SHYAM WINSOME Organization [facility] Address [address] [place] [address] Care Team Providers Care Service Parts Driver Name Role Phone HOWEWINSOME Phillip Unavailable PROBLEMS Type Condition ICD9-CM Code [id number] Code Onset Dates Condition Status SNOMED Code Problem Abdominal obesity E65 Active 537518394 Problem Body mass index (BMI) of 33.0-33.9 in adult Z68.33 Active 083715557 Problem Chronic fatigue R53.82 Active 26373810 Problem Elevated LDL cholesterol level E78.00 Active 145586593 Problem GERD with esophagitis K21.0 Active 009686375 Problem Stress incontinence in female N39.3 Active 49019659 Problem Lumbago with sciatica, right side M54.41 Active 807051711497340 Problem Lumbago with sciatica, left side M54.42 Active 049703397 Problem Other obesity due to excess calories E66.09 Active 019445639 Problem Other chronic pain G89.29 Active 02979227 ALLERGIES No Known Allergies ENCOUNTERS Encounter Location Date Diagnosis [place] [id number] [place] [address] 73801- 9162 Jul, [place] [address] [place] [id number] [place] [address] 16263- 7692 Jun, [place] [address] [place] [id number] [place] [address] 71296- 6363 Jun, Peroneal tendinitis of left lower extremity M76.72 [place] [address] [place] [id number] [place] [address] 98070- 3863 May, GERD with esophagitis K21.0 ; Lumbago with sciatica, left side M54.42 and Lumbago with sciatica, right side M54.41 [place] [address] [place] [address] 6861 March, [place] [address] 85236- 2831 March, Lumbago with sciatica, left side M54.42 [place] [address] 52223- 6623 Feb, [place] [address] 00948- 3548 Feb, [place] [address] 49227- 5255 13 Feb, 2018 Encounter for well woman exam without gynecological exam Z00.00 ; Screening breast examination Z12.31 ; Lumbago with sciatica, right side M54.41 and Stress incontinence in female N39.3 [place] [address] 24474- 6015 06 Feb, 2018 Lumbago with sciatica, left side M54.42 ; Lumbago with sciatica, right side M54.41 ; Other chronic pain G89.29 ; Other obesity due to excess calories E66.09 and Body mass index (BMI) of 33.0-33.9 in adult Z68.33 [facility] [address] [place] [id number] [place] [address] 66005 -4774 07 Dec, 2017 [facility] [address] [place] [address] [id number] [place] [address] 81007 -8512 Dec, [place] [address] [place] [id number] [place] [address] 73457- 9589 Aug, Pain in right foot M79.671 [place] [address] 38905- 2963 Aug, Physical exam, routine Z00.00 ; Tobacco abuse Z72.0 ; Tobacco abuse counseling Z71.6 ; Chronic fatigue R53.82 ; Bump R22.9 and Abdominal obesity E65 [place] [address] [place] [address]- 0737 March, Abnormal mammogram R92.8 [place] [address] [place] [id number] [place] [address] 97056- 1837 Feb, Routine gynecological examination Z01.419 ; Visit for gynecologic examination Z01.419 ; Obesity due to excess calories, unspecified obesity severity E66.09 and Pain in right foot M79.671 [place] [address] 52663- 9856 Dec, Bronchitis J40 [place] [address] 25829- 6780 Aug, Abnormal mammogram R92.8 [place] [address] 77707- 4858 Aug, Abnormal mammogram R92.8 [place] [address] 01475- 7848 Aug, [place] [address] [place] [id number] [place] [address] 72038- 2460 Jun, [place] [address] 13399- 6188 May, Primary insomnia F51.01 ; Fatigue R53.83 ; Major depressive disorder with single episode, remission status unspecified F32.9 ; Coughing R05 ; Coughing up blood R04.2 ; Wellness examination Z00.00 ; Tobacco use Z72.0 and Tobacco abuse counseling Z71.6 [place] [address] [place] [id number] [place] [address] 92066- 3557 Jan, Fatigue R53.83 ; Family history of diabetes mellitus Z83.3 ; Wellness examination Z00.00 ; Heart murmur R01.1 and Stress incontinence N39.3 [place] [address] [place] [id number] [place] [address] 06289- 4286 Jun, Back pain of lumbar region with sciatica 724.2 [place] [address] [place] [id number] [place] [address] 28959- 0773 May, Fatigue 780.79 [facility] [place] [facility] [address] [id number] [place] [address]- 8236 14 Feb, 2015 [facility] [place] [facility] [address] [facility] [id number] [place] [address]86 13 Feb, 2015 [facility] [place] [facility] [address] [facility] [id number] [address]- 2136 05 Jan, 2015 [facility] [place] [facility] [address] [id number] [address]- 3945 Jan, [facility] [place] [facility] [address] [facility] [id number] [place] [address]- 2626 Sep, [facility] [place] [facility] [address] [facility] [id number] [place] [address]- 5105 Sep, [facility] [place] [facility] [address] [place] [id number] [place] [address]- 4480 Sep, [facility] [place] [facility] [address] [facility] [id number] [address]- 8723 Sep, [facility] [place] [facility] [address] [place] [id number] [place] [address]- 3379 Sep, [facility] [place] [facility] [address] [facility] [id number] [address]- 1198 Sep, [facility] [place] [facility] [address] [facility] [id number] [place] [address]- 3948 Sep, [facility] [place] [facility] [address] [facility] [id number] [address]- 4817 Sep, [facility] [place] [facility] [address] [facility] [id number] [place] [address]- 6705 Aug, [facility] [place] [facility] [address] [facility] [id number] [address]- 2041 Aug, [facility] [place] [facility] [address] [facility] [id number], [place] [address]- 8081 Aug, [facility] [place] [facility] [address] [id number] [place] [address]- 8047 Aug, [facility] [address] [id number] [place] [address]- 0035 Aug, [facility] [place] [facility] [address] [id number] [place] [address]- 6785 March, [facility] [place] [facility] [address] [id number] [place] [address]- 9151 March, [facility] [address] [id number] [place] [address]- 5223 March, [facility] [place] [facility] [address] [id number] [place] [address]- 2382 March, [facility] [address] [id number] [place] [address]- 8913 March, [facility] [address] [id number] [place] [address]- 8091 March, [facility] [address] [id number] [place] [address]- 4106 March, [facility] [place] [facility] [address] [id number] [place] [address]- 8626 March, [facility] [place] [facility] [address] [id number] [place] [address]- 8546 March, [facility] [place] [facility] [address] [id number] [place] [address]- 6546 March, [facility] [place] [facility] [address] [id number] [place] [address]- 1587 March, [facility] [place] [facility] [address] [id number] [place] [address]- 4530 March, [facility] [place] [facility] [address] [id number] [place] 9006 March, [facility] [place] [facility] [address] [id number] [place] [address]- 8991 March, [facility] [place] [facility] [address] [id number] [place] [address]- 7711 Jan, [facility] [place] [facility] [address] [id number] [place] 1196 Jan, [facility] [place] [facility] [address] [facility] [id number] [place] [address]- 9028 Jan, [facility] [place] [facility] [address] [id number] [place] [address]- 8612 Jan, [facility] [place] [facility] [address] [id number] [place] [address]- 0232 Jan, [facility] [place] [facility] [address] [facility] [id number] [place] [address]- 6522 Jan, [facility] [place] [facility] [address] [facility] [id number] [place] [address]- 4730 Dec, [facility] [place] [facility] [address] [facility] [id number] [place] [address]- 4401 Dec, [facility] [place] [facility] [address] [facility] [id number] [place] [address]- 4591 Dec, [facility] [place] [facility] [address] [facility] [id number] [place] [address]- 8184 Dec, [facility] [place] [facility] [address] [facility] [id number] [place] [address]- 2850 Dec, [facility] [place] [facility] [address] [facility] [id number] [place] [address]- 8669 Dec, [facility] [place] [facility] [address] [facility] [id number] [place] [address]- 4102 Dec, [facility] [place] [facility] [address] [facility] [id number] [place] [address]- 1014 Dec, [facility] [place] [facility] [address] [facility] [id number], [place] [address]- 7445 Dec, [facility] [place] [facility] [address] [id number] [place] [address]- 3260 Dec, [facility] [place] [facility] [address] [id number] [place] [address]- 2105 Dec, [facility] [place] [facility] [address] [id number] [place] [address]- 9395 Jan, [facility] [place] [facility] [address] [id number] [place] [address]- 2825 Dec, [facility] [place] [facility] [address] [id number] [place] [address]- 1199 Dec, [facility] [place] [facility] [address] [id number] [place] [address]- 0326 Nov, [facility] [place] [facility] [address] [id number] [place] [address]- 1775 Feb, [facility] [place] [facility] [address] [id number] [place] [address]- 5991 Dec, [facility] [place] [facility] [address] [id number] [place] [address]- 7474 Dec, [facility] [place] [facility] [address] [id number] [place] [address]- 2695 Nov, [facility] [place] [facility] [address] [id number] [place] [address]- 5392 Apr, [facility] [place] [facility] [address] [id number] [place] [address]- 3192 Sep, [facility] [place] [facility] [address] [id number] [place] [address]- 3463 Sep, [facility] [place] [facility] [address] [id number] [place] [address]- 3716 March, [facility] [place] [facility] [address] [id number] [place] [address]- 6175 Oct, [facility] [place] [facility] [address] [facility] [id number] [place] [address]- 3100 17 Jul, 2009 [facility] [address] [facility] [id number] [place] [address]- 8910 14 Jul, 2009 IMMUNIZATIONS No Known Immunizations SOCIAL HISTORY Never Assessed REASON FOR VISIT Hyperlipidemia fu -- maggychristian kristie, having acid reflux states she has had this for 3 years but the last couple months got worse PLAN OF CARE Activity Details Follow Up 3 Months, prn Reason:CHM/GERD/Back pain VITAL SIGNS Height 64 in 2018-06-14 Weight 203.0 lbs 2018-06-14 Temperature 98.6 degrees Fahrenheit 2018-06-14 Heart Rate 80 bpm 2018-06-14 Respiratory Rate 18 2018-06-14 BMI 34.84 kg/m2 2018-06-14 Blood pressure systolic 128 mmHg 2018-06-14 Blood pressure diastolic 78 mmHg 2018-06-14 MEDICATIONS Medication Instructions Dosage Frequency Start Date End Date Duration Status Protonix 40 MG Orally Once a day 1 tablet 24h May, 90 days Active Aleve 220 MG Orally every 12 hrs 1 tablet with food or milk as needed 12h Active Sucralfate 1 GM Orally Twice a day 1 tablet twice a day on an empty stomach before meals 12h May, Jun, 30 day(s) Active Ranitidine 75 75 MG Orally Twice a day 1 tablet as needed 12h Active RESULTS No Results PROCEDURES No Known procedures INSTRUCTIONS MEDICATIONS ADMINISTERED No Known Medications MEDICAL (GENERAL) HISTORY Type Description Date Medical History arthritis Medical History GERD Medical History Chronic Fatigue Medical History Lumbago Medical History Tobacco abuse- quit 2017 Medical History Abnormal mammogram Surgical History section Surgical History exploratory laparoscopy Surgical History skin cancer- basal cell Surgical History tonsillectomy Hospitalization History Surgery(s)/Childbirth(s) only
--- OUTSIDE RECORDS SUMMARY | 2019-01-03 09:13 | XMS REPORT ---
Author Author WINSOME HOWE Organization [facility] Address [address] [place] [address] Care Team Providers Care Insemination Worker Name Role Phone HOWESHANA PhillipELE Unavailable PROBLEMS Type Condition ICD9-CM Code [id number] Code Onset Dates Condition Status SNOMED Code Problem Abdominal obesity E65 Active 659950112 Problem Body mass index (BMI) of 33.0-33.9 in adult Z68.33 Active 490734552 Problem Chronic fatigue R53.82 Active 96431490 Problem Elevated LDL cholesterol level E78.00 Active 037037117 Problem GERD with esophagitis K21.0 Active 349995457 Problem Stress incontinence in female N39.3 Active 45975294 Problem Lumbago with sciatica, right side M54.41 Active 604870859763136 Problem Lumbago with sciatica, left side M54.42 Active 506981247 Problem Other obesity due to excess calories E66.09 Active 938863032 Problem Other chronic pain G89.29 Active 76395681 ALLERGIES No Information ENCOUNTERS Encounter Location Date Diagnosis [place] [address] [place] [address] 01360- 7804 Jul, [place] [address] [place] [id number] [place] [address] 70782- 2278 Jul, Visit for TB skin test Z11.1 [facility] [address] [place] [address] [id number] [place] [address] 65595- 3043 Jun, [place] [address] [place] [id number] [place] [address] 52586- 1868 Jun, Peroneal tendinitis of left lower extremity M76.72 [place] [address] [place] [address] 95461- 8601 May, GERD with esophagitis K21.0 ; Lumbago with sciatica, left side M54.42 and Lumbago with sciatica, right side M54.41 [place] [address] [place] [id number] [place] [address] 66905- 5979 March, [place] [address] [place] [id number] [place] [address] 39377- 9315 March, Lumbago with sciatica, left side M54.42 [place] [address] [place] [id number] [place] [address] 71811- 5625 Feb, [place] [address] [place] [id number] [place] [address] 84423- 3935 Feb, [place] [address] [place] [id number] [place] [address] 32765- 3015 Feb, Encounter for well woman exam without gynecological exam Z00.00 ; Screening breast examination Z12.31 ; Lumbago with sciatica, right side M54.41 and Stress incontinence in female N39.3 [place] [address] [id number] [place] [address] 07315- 4581 Feb, Lumbago with sciatica, left side M54.42 ; Lumbago with sciatica, right side M54.41 ; Other chronic pain G89.29 ; Other obesity due to excess calories E66.09 and Body mass index (BMI) of 33.0-33.9 in adult Z68.33 [facility] [place] [id number] [place] [address] 28022 -9802 Dec, [facility] [place] [address] [id number] [place] [address] 22407 -3602 Dec, [place] [address] [place] [id number] [place] [address] 58983- 0284 Aug, Pain in right foot M79.671 [place] [address] [place] [id number] [place] [address] 27124- 0141 Aug, Physical exam, routine Z00.00 ; Tobacco abuse Z72.0 ; Tobacco abuse counseling Z71.6 ; Chronic fatigue R53.82 ; Bump R22.9 and Abdominal obesity E65 [place] [address] 31258- 3483 March, Abnormal mammogram R92.8 [place] [address] [id number] [place] [address] 76639- 8844 Feb, Routine gynecological examination Z01.419 ; Visit for gynecologic examination Z01.419 ; Obesity due to excess calories, unspecified obesity severity E66.09 and Pain in right foot M79.671 [place] [address] 25960- 6823 Dec, Bronchitis J40 [place] [address] 07160- 8043 Aug, Abnormal mammogram R92.8 [place] [address] 95947- 6384 Aug, Abnormal mammogram R92.8 [place] [address] 45933- 1947 Aug, [place] [address] 19263- 8485 Jun, [place] [address] 46715- 3741 May, Primary insomnia F51.01 ; Fatigue R53.83 ; Major depressive disorder with single episode, remission status unspecified F32.9 ; Coughing R05 ; Coughing up blood R04.2 ; Wellness examination Z00.00 ; Tobacco use Z72.0 and Tobacco abuse counseling Z71.6 [place] [address] 68314- 1876 Jan, Fatigue R53.83 ; Family history of diabetes mellitus Z83.3 ; Wellness examination Z00.00 ; Heart murmur R01.1 and Stress incontinence N39.3 [place] [address] 55438- 8872 Jun, Back pain of lumbar region with sciatica 724.2 [facility] [id number] [place] [address] 220161- 6837 May, Fatigue 780.79 [facility] [place] [facility] [address] [id number] [place] [address] 2546 14 Feb, 2015 [facility] [place] [facility] [address] [id number] [place] [address], [place] [address]- 5096 Feb, [facility] [place] [facility] [address] [id number] [place] [address], [place] [address] 2544 Jan, [facility] [place] [facility] [address] [facility] [id number] [place] [address], [place]- 6109 Jan, [facility] [place] [facility] [address] [facility] [id number] [place] [address], [place] [address]- 7120 Sep, [facility] [place] [facility] [address] [id number] [place] [address], [place] [address]- 3134 Sep, [facility] [place] [facility] [address] [facility] [id number] [place] [address] 16641- 0946 Sep, [facility] [place] [facility] [address] [facility] [id number] [place] [address] 04247- 4205 Sep, [facility] [place] [facility] [address] [place] [address] [id number] [address]- 9866 Sep, [facility] [place] [facility] [address] [facility] [id number] [address]- 6380 Sep, [facility] [place] [facility] [address] [facility] [id number], [place] [address]- 7227 Sep, [facility] [place] [facility] [address] [facility] [id number] [place] [address] 485843- 2336 Sep, [facility] [place] [facility] [address] [facility] [id number] [address]- 2540 Aug, [facility] [place] [facility] [address] [facility] [id number] [place] [address] 88123- 4712 Aug, [facility] [place] [facility] [address] [id number] [place] [address]- 6930 Aug, [facility] [place] [facility] [address] [id number] [place] [address]- 6995 Aug, [facility] [place] [facility] [address] [id number] [place] [address]- 8686 Aug, [facility] [place] [facility] [address] [id number] [place] [address]- 0314 March, [facility] [place] [facility] [address] [id number] [place] [address]- 8560 March, [facility] [place] [facility] [address] [id number] [place] [address]- 3752 March, [facility] [place] [facility] [address] [id number] [place] [address]- 0095 March, [facility] [place] [facility] [address] [id number] [place] [address]- 4627 March, [facility] [place] [facility] [address] [id number] [place] [address]- 5402 March, [facility] [place] [facility] [address] [id number] [place] [address]- 0349 March, [facility] [place] [facility] [address] [id number] [place] [address]- 3796 March, [facility] [place] [facility] [address] [id number] [place] [address]- 7376 March, [facility] [place] [facility] [address] [id number] [place] [address]- 3255 March, [facility] [place] [facility] [address] [id number] [place] [address]- 7797 March, [facility] [place] [facility] [address] [id number] [place] [address]- 7035 March, [facility] [place] [facility] [address] [id number] [place] [address]- 4010 March, [facility] [place] [facility] [address] [id number] [place] [address]- 3637 March, [facility] [place] [facility] [address] [id number] [place] [address]- 7670 Jan, [facility] [place] [facility] [address] [id number] [place] [address] Jan, [facility] [place] [facility] [address] [id number] [place] [address] Jan, [facility] [place] [facility] [address] [id number] [place] [address] Jan, [facility] [place] [facility] [address] [facility] [id number] [place] [address] Jan, [facility] [place] [facility] [address] [id number] [place] [address] Jan, [facility] [place] [facility] [address] [id number] [place] [address] Dec, [facility] [place] [facility] [address] [id number] [place] [address] Dec, [facility] [place] [facility] [address] [facility] [id number] [place] [address] Dec, [facility] [place] [facility] [address] [facility] [id number] [place] [address] Dec, [facility] [place] [facility] [address] [id number] [place] [address] Dec, [facility] [place] [facility] [address] [id number] [place] [address] Dec, [facility] [place] [facility] [address] [facility] [id number] [place] [address] Dec, [facility] [place] [facility] [address] [facility] [id number] [place] [address] Dec, [facility] [place] [facility] [address] [id number] [place] [address] Dec, [facility] [place] [facility] [address] [id number] [place] [address] Dec, [facility] [place] [facility] [address] [id number] [place] [address] Dec, [facility] [place] [facility] [address] [id number] [place] [address] Jan, [facility] [place] [facility] [address] [id number] [place] [address] Dec, [facility] [place] [facility] [address] [id number] [place] [address] Dec, [facility] [place] [facility] [address] [id number] [place] [address] Nov, [facility] [place] [facility] [address] [id number] [place] [address] Feb, [facility] [place] [facility] [address] [id number] [place] [address] Dec, [facility] [place] [facility] [address] [facility] [id number] [place] [address] Dec, [facility] [place] [facility] [address] [id number] [place] [address] Nov, [facility] [place] [facility] [address] [id number] [place] [address] Apr, [facility] [place] [facility] [address] [id number] [place] [address] Sep, [facility] [place] [facility] [address] [id number] [place] [address] 04 Sep, 2010 [facility] [place] [facility] [address] [facility] [id number] [place] [address] March, [facility] [place] [facility] [address] [facility] [id number] [place] [address] 31 Oct, 2009 [facility] [address] [facility] [id number] [address] 17 Jul, 2009 [facility] [address] [facility] [id number] [place] [address] 14 Jul, 2009 IMMUNIZATIONS No Known Immunizations SOCIAL HISTORY Never Assessed REASON FOR VISIT LVM PLAN OF CARE VITAL SIGNS MEDICATIONS Unknown Medications RESULTS No Results PROCEDURES No Known procedures [...]
--- OUTSIDE RECORDS SUMMARY | 2019-01-03 09:13 | XMS REPORT ---
Author Author CELINA OSCAR [facility] Address [address] [place] [address] Care Team Providers Care Insurance Biller Name Role Phone CELINA OSCAR Unavailable PROBLEMS Type Condition ICD9-CM Code MDC96-GC Code Onset Dates Condition Status SNOMED Code Problem Abdominal obesity E65 Active 465905136 Problem Body mass index (BMI) of 33.0-33.9 in adult Z68.33 Active 078288099 Problem Chronic fatigue R53.82 Active 92576178 Problem Elevated LDL cholesterol level E78.00 Active 523862522 Problem GERD with esophagitis K21.0 Active 350338612 Problem Stress incontinence in female N39.3 Active 83046569 Problem Lumbago with sciatica, right side M54.41 Active 446556272421946 Problem Lumbago with sciatica, left side M54.42 Active 392312872 Problem Other obesity due to excess calories E66.09 Active 543562389 Problem Other chronic pain G89.29 Active 14972800 ALLERGIES No Information ENCOUNTERS Encounter Location Date Diagnosis [facility] [id number] [address] Sep, [facility] [place] [id number] [place] [address]49- [address] 15 Sep, 2018 Encounter for general adult medical examination without abnormal findings Z00.00 [facility] [place] [id number] [place] [address]18- 5271 10 Jul, 2018 Visit for TB skin test Z11.1 [facility] [place] [id number] [place] [address] 44125- 2634 Jun, [facility] [place] [address] [address] Jun, Peroneal tendinitis of left lower extremity M76.72 [place] [id number] [place] [address]80- 5921 May, GERD with esophagitis K21.0 ; Lumbago with sciatica, left side M54.42 and Lumbago with sciatica, right side M54.41 [place] [id number] [place] [address] 44194- 7098 March, [place] [address] [address] March, Lumbago with sciatica, left side M54.42 [place] [address] [address] Feb, [place] [address] [address] Feb, [place] [address] [address] Feb, Encounter for well woman exam without gynecological exam Z00.00 ; Screening breast examination Z12.31 ; Lumbago with sciatica, right side M54.41 and Stress incontinence in female N39.3 [place] [id number] [place] [address] 77416- 7152 Feb, Lumbago with sciatica, left side M54.42 ; Lumbago with sciatica, right side M54.41 ; Other chronic pain G89.29 ; Other obesity due to excess calories E66.09 and Body mass index (BMI) of 33.0-33.9 in adult Z68.33 [facility] [id number] [place] [address] Dec, [facility] [place] [address] [address] Dec, [place] [id number] [place] [address] 60258- 4864 Aug, Pain in right foot M79.671 [place] [id number] [place] [address] 39217- 6466 Aug, Physical exam, routine Z00.00 ; Tobacco abuse Z72.0 ; Tobacco abuse counseling Z71.6 ; Chronic fatigue R53.82 ; Bump R22.9 and Abdominal obesity E65 [place] [id number] [place] [address] 88069- 4658 March, Abnormal mammogram R92.8 [place] [address] [address]- [address] Feb, Routine gynecological examination Z01.419 ; Visit for gynecologic examination Z01.419 ; Obesity due to excess calories, unspecified obesity severity E66.09 and Pain in right foot M79.671 [place] [id number] [place] [address] 39291- 4352 Dec, Bronchitis J40 [place] [address] 5[address]- 0767 Aug, Abnormal mammogram R92.8 [place] [id number] [place] [address] 61517- 4927 Aug, Abnormal mammogram R92.8 [place] [id number] [place] [address] 94061- 0580 Aug, [place] [id number] [place] [address] 80471- 0338 Jun, [place] [id number] [place] [address] 82655- 3101 May, Primary insomnia F51.01 ; Fatigue R53.83 ; Major depressive disorder with single episode, remission status unspecified F32.9 ; Coughing R05 ; Coughing up blood R04.2 ; Wellness examination Z00.00 ; Tobacco use Z72.0 and Tobacco abuse counseling Z71.6 [place] [id number] [place] [address] 73602- 5759 24 Jan, 2016 Fatigue R53.83 ; Family history of diabetes mellitus Z83.3 ; Wellness examination Z00.00 ; Heart murmur R01.1 and Stress incontinence N39.3 [facility] [place] [id number] [place] [address] 21200- 9266 Jun, Back pain of lumbar region with sciatica 724.2 [facility] [place] [id number] [place] [address] 53919- 8521 May, Fatigue 780.79 [facility] [place] [id number] [place] [address] 22380- 5510 Feb, [facility] [place] [id number] [place] [address] 81247- 2132 Feb, [facility] [place] [id number] [place] [address] 74749- 1329 Jan, [facility] [place] [id number] [place] [address] 21348- 6047 Jan, [facility] [place] [id number] [place] [address] 91447- 3835 Sep, [facility] [place] [id number] [place] [address] 88555- 9026 Sep, [facility] [place] [id number] [address] Sep, [facility] [place] [address] [address] Sep, [facility] [place] [address], [place] [address] Sep, [facility] [place] [address] [address] 4[address] Sep, [facility] [place] [id number] [address]44 Sep, [facility] [place] [address], [place] [address] Sep, [facility] [place] [facility] [address] [id number] [place] [address] Aug, [facility] [address] [id number] [place] [address]- 6202 Aug, [facility] [address] [id number] [place] [address] 0149 Aug, [facility] [address] [id number] [place] [address] 6276 Aug, [facility] [address] [id number] [place] [address]- 0825 Aug, [facility] [address] [id number] [place] [address] 2799 March, [facility] [address] [id number] [place] [address]- 3944 March, [facility] [address] [id number] [place] [address]- 7792 March, [facility] [address] [id number] [place] [address]- 6525 March, [facility] [address] [id number] [place] [address]- 0422 March, [facility] [address] [id number] [place] [address]- 9926 March, [facility] [place] [facility] [address] [id number] [place] [address]- 8224 March, [facility] [address] [id number] [place] [address]- 2362 March, [facility] [place] [facility] [address] [id number] [place] [address]- 0181 March, [facility] [place] [facility] [address] [id number] [place] [address]- 4916 March, [facility] [place] [facility] [address] [id number] [place] [address]- 1313 March, [facility] [place] [facility] [address] [id number] [place] [address]- 1094 March, [facility] [place] [facility] [address] [id number] [place] [address]- 8023 March, [facility] [place] [facility] [address] [id number] [place] [address]- 1947 March, [facility] [place] [facility] [address] [id number] [place] [address]- 5371 Jan, [facility] [place] [facility] [address] [id number] [place] [address]- 1604 Jan, [facility] [place] [facility] [address] [id number] [place] [address]- 3064 Jan, [facility] [place] [facility] [address] [id number] [place] [address]- 0220 Jan, [facility] [place] [facility] [address] [id number] [place] [address]- 0128 Jan, [facility] [place] [facility] [address] [id number] [place] [address]- 3088 Jan, [facility] [place] [facility] [address] [id number] [place] [address]- 8520 Dec, [facility] [place] [facility] [address] [id number] [place] [address]- 5913 Dec, [facility] [place] [facility] [address] [id number] [place] [address]- 6622 Dec, [facility] [place] [facility] [address] [id number] [place] [address]- 6908 Dec, [facility] [place] [facility] [address] [id number] [place] [address]- 0781 Dec, [facility] [place] [facility] [address] [id number] [place] [address]- 7336 Dec, [facility] [place] [facility] [address] [id number] [place] [address]- 2758 12 Dec, 2013 [facility] [address] [id number] [place] [address]- 1346 Dec, [facility] [place] [facility] [address] [id number] [place] [address] 2546 11 Dec, 2013 [facility] [place] [facility] [address] [id number] [place] [address]- 9886 10 Dec, 2013 [facility] [place] [facility] [address] [id number] [place] [address]- 2549 10 Dec, 2013 [facility] [place] [facility] [address] [id number] [place] [address]- 7221 08 Jan, 2013 [facility] [place] [facility] [address] [id number] [place] [address]- 4558 28 Dec, 2012 [facility] [place] [facility] [address] [id number] [place] [address]- 2544 Dec, [facility] [place] [facility] [address] [id number] [place] [address]- 4161 Nov, [facility] [place] [facility] [address] [id number] [place] [address]- 2133 Feb, [facility] [place] [facility] [address] [id number] [place] [address]- 8342 Dec, [facility] [place] [facility] [address] [id number] [place] [address]- 3877 Dec, [facility] [place] [facility] [address] [id number] [place] [address]- 2545 Nov, [facility] [place] [facility] [address] [id number] [place] [address] 2548 Apr, [facility] [place] [facility] [address] [id number] [place] [address]- 2544 24 Sep, 2010 [facility] [place] [facility] [address] [id number] [place] [address] 2540 04 Sep, 2010 [facility] [place] [address] [facility] [id number] [address] March, [facility] [place] [address] [facility] [id number] [address]- 2546 Oct, [facility] [place] [address] [facility] [id number] [address]- 2546 Jul, [facility] [place] [address] [facility] [id number] [address]- 2546 Jul, IMMUNIZATIONS No Known Immunizations SOCIAL HISTORY Never Assessed REASON FOR VISIT N/V since last noc. pt reports she cant even drink coffee. pt has no copay. hipolito, instructed pt to drink sips of clear liquids, stay away from foods at this ... may advance diet to BRAT diet as tolerated. can alternate tylenol et motrin as needed for headache if she develops on. also get plenty of rest. pt verbalized understanding PLAN OF CARE VITAL SIGNS Height 64 in 2018-10-24 Weight 210.8 lbs 2018-10-24 Temperature 97.0 degrees Fahrenheit 2018-10-24 Heart Rate 88 bpm 2018-10-24 Respiratory Rate 20 2018-10-24 BMI 36.18 kg/m2 2018-10-24 Blood pressure systolic 120 mmHg 2018-10-24 Blood pressure diastolic 72 mmHg 2018-10-24 MEDICATIONS Medication Instructions Dosage Frequency Start Date [...]
--- OUTSIDE RECORDS SUMMARY | 2019-01-03 09:14 | XMS REPORT ---
Author Author WINSOME HOWE Organization [facility] Address [address] [place] [address] Care Team Providers Care Care Partner Name Role Phone HOWEWINSOME Phillip Unavailable PROBLEMS Type Condition ICD9-CM Code IKI68-BO Code Onset Dates Condition Status SNOMED Code Problem Abdominal obesity E65 Active 160289697 Problem Body mass index (BMI) of 33.0-33.9 in adult Z68.33 Active 723661227 Problem Chronic fatigue R53.82 Active 85821878 Problem Elevated LDL cholesterol level E78.00 Active 459375476 Problem GERD with esophagitis K21.0 Active 746323375 Problem Stress incontinence in female N39.3 Active 70226531 Problem Lumbago with sciatica, right side M54.41 Active 662448840607420 Problem Lumbago with sciatica, left side M54.42 Active 238930200 Problem Other obesity due to excess calories E66.09 Active 502156672 Problem Other chronic pain G89.29 Active 31632661 ALLERGIES No Known Allergies ENCOUNTERS Encounter Location Date Diagnosis [place] [address] [place] [address]3951- 0887 Jun, [facility] [address] [place] [id number] [place] [address] 26270- 1846 Jun, [facility] [address] [place] [id number] [place] [address] 92150- 7634 May, GERD with esophagitis K21.0 ; Lumbago with sciatica, left side M54.42 and Lumbago with sciatica, right side M54.41 [facility] [address] [place] [id number] [place] [address] 47169- 6582 March, [facility] [address] [place] [id number] [place] [address] 61349- 4689 March, Lumbago with sciatica, left side M54.42 [place] [address] [place] [id number] [place] [address] 53926- 4233 Feb, [place] [address] 33398- 6813 Feb, [place] [address] 64181- 2205 Feb, Encounter for well woman exam without gynecological exam Z00.00 ; Screening breast examination Z12.31 ; Lumbago with sciatica, right side M54.41 and Stress incontinence in female N39.3 [place] [address] 46856- 3777 06 Feb, 2018 Lumbago with sciatica, left side M54.42 ; Lumbago with sciatica, right side M54.41 ; Other chronic pain G89.29 ; Other obesity due to excess calories E66.09 and Body mass index (BMI) of 33.0-33.9 in adult Z68.33 [facility] [address] [address] -[address] 07 Dec, 2017 [facility] [place] [address] 7[address]74 -4422 Dec, [place] [address] [place] [id number] [place] [address] 28971- 4047 Aug, Pain in right foot M79.671 [place] [address] 65255- 8455 Aug, Physical exam, routine Z00.00 ; Tobacco abuse Z72.0 ; Tobacco abuse counseling Z71.6 ; Chronic fatigue R53.82 ; Bump R22.9 and Abdominal obesity E65 [place] [address] 13519- 0063 March, Abnormal mammogram R92.8 [place] [address] 67858- 0097 Feb, Routine gynecological examination Z01.419 ; Visit for gynecologic examination Z01.419 ; Obesity due to excess calories, unspecified obesity severity E66.09 and Pain in right foot M79.671 [place] [address] [place] [id number] [place] [address] 42531- 3830 Dec, Bronchitis J40 [place] [address] [place] [id number] [place] [address] 25464- 1597 Aug, Abnormal mammogram R92.8 [place] [address] 50107- 8608 Aug, Abnormal mammogram R92.8 [place] [address] 47044- 8792 Aug, [place] [address] [place] [id number] [place] [address] 18019- 2295 Jun, [place] [address] [place] [id number] [place] [address] 79053- 4382 May, Primary insomnia F51.01 ; Fatigue R53.83 ; Major depressive disorder with single episode, remission status unspecified F32.9 ; Coughing R05 ; Coughing up blood R04.2 ; Wellness examination Z00.00 ; Tobacco use Z72.0 and Tobacco abuse counseling Z71.6 [place] [address] [place] [id number] [place] [address] 78326- 6044 Jan, Fatigue R53.83 ; Family history of diabetes mellitus Z83.3 ; Wellness examination Z00.00 ; Heart murmur R01.1 and Stress incontinence N39.3 [place] [address] [place] [id number] [place] [address] 73020- 0843 Jun, Back pain of lumbar region with sciatica 724.2 [place] [address] [place] [id number] [place] [address] 71666- 8024 May, Fatigue 780.79 [place] [address] 83714- 3770 Feb, [facility] [place] [facility] [address] [id number] [place] [address]- 4740 Feb, [facility] [place] [facility] [address] [id number] [place] [address]- 0078 Jan, [facility] [place] [facility] [address] [id number] [place] [address]- 0196 Jan, [facility] [place] [facility] [address] [id number] [place] [address]- 8612 Sep, [facility] [place] [facility] [address] [id number] [place] [address]- 0367 Sep, [facility] [place] [facility] [address] [id number] [place] [address]- 8048 Sep, [facility] [place] [facility] [address] [id number] [place] [address]- 2396 Sep, [facility] [place] [facility] [address] [id number] [place] [address]- 2388 Sep, [facility] [place] [facility] [address] [id number] [place] [address]- 9248 Sep, [facility] [place] [facility] [address] [id number], [place] [address]- 6582 Sep, [facility] [place] [facility] [address] [id number], [place] [address]- 9491 Sep, [facility] [place] [facility] [address] [id number], [place] [address]- 6297 Aug, [facility] [place] [facility] [address] [id number] [place] [address]- 0627 Aug, [facility] [place] [facility] [address] [id number], [place] [address]- 4972 Aug, [facility] [place] [facility] [address] [id number] [place] [address]- 5626 Aug, [facility] [place] [facility] [address] [id number] [place] [address]- 8784 Aug, [facility] [address] [id number] [place] [address]- 5740 March, [facility] [place] [facility] [address] [id number] [place] [address]- 3409 March, [facility] [place] [facility] [address] [id number] [place] [address]- 3440 March, [facility] [place] [facility] [address] [id number] [place] [address]- 9335 March, [facility] [place] [facility] [address] [id number] [place] [address]- 0959 March, [facility] [place] [facility] [address] [id number] [place] [address]- 0241 March, [facility] [place] [facility] [address] [id number] [place] [address]- 4468 March, [facility] [place] [facility] [address] [id number] [place] [address]- 9251 March, [facility] [place] [facility] [address] [id number] [place] [address]- 6701 March, [facility] [place] [facility] [address] [id number] [place] [address]- 1497 March, [facility] [place] [facility] [address] [id number] [place] [address]- 8692 March, [facility] [place] [facility] [address] [id number] [place] [address]- 2267 March, [facility] [place] [facility] [address] [id number] [place] [address]- 4727 March, [facility] [place] [facility] [address] [id number] [place] [address]- 3810 March, [facility] [place] [facility] [address] [id number] [place] 7040 Jan, [facility] [place] [facility] [address] [id number] [place] [address]- 6501 Jan, [facility] [place] [facility] [address] [id number] [place] [address]- 2813 Jan, [facility] [place] [facility] [address] [id number] [place] [address]- 0498 Jan, [facility] [place] [facility] [address] [id number] [place] [address]- 7092 Jan, [facility] [place] [facility] [address] [id number] [place] [address]- 3215 Jan, [facility] [place] [facility] [address] [id number] [place] [address]- 6267 Dec, [facility] [place] [facility] [address] [facility] [id number] [place] [address]- 4342 Dec, [facility] [place] [facility] [address] [id number] [place] [address]- 1672 Dec, [facility] [place] [facility] [address] [id number] [place] [address]- 3175 Dec, [facility] [place] [facility] [address] [facility] [id number] [place] [address]- 9263 Dec, [facility] [place] [facility] [address] [facility] [id number] [place] [address]- 1380 Dec, [facility] [place] [facility] [address] [id number] [place] [address]- 2314 Dec, [facility] [place] [facility] [address] [id number] [place] [address]- 2309 Dec, [facility] [place] [facility] [address] [id number] [place] [address]- 4411 Dec, [facility] [place] [facility] [address] [facility] [id number] [place] [address]- 8387 Dec, [facility] [place] [facility] [address] [id number] [place] [address]- 1441 10 Dec, 2013 [facility] [address] [id number] [place] [address]- 1475 Jan, [facility] [address] [id number] [place] [address] 2546 28 Dec, 2012 [facility] [address] [id number] [place] [address]- 8856 Dec, [facility] [address] [id number] [place] [address]- 7857 Nov, [facility] [address] [id number] [place] [address]- 8115 Feb, [facility] [address] [id number] [place] [address]- 7256 Dec, [facility] [address] [id number] [place] [address]- 2229 Dec, [facility] [address] [id number] [place] [address]- 0051 Nov, [facility] [address] [facility] [id number] [place] [address]- 0116 Apr, [facility] [address] [facility] [id number] [place] [address]- 3490 Sep, [facility] [address] [id number] [place] [address] 2546 Sep, [facility] [address] [id number] [place] [address] 2546 March, [facility] [address] [id number] [place] [address]- 2246 Oct, [facility] [address] [id number] [place] [address]- 2546 17 Jul, 2009 [facility] [address] [id number] [place] [address] 2546 14 Jul, 2009 IMMUNIZATIONS No Known Immunizations SOCIAL HISTORY Never Assessed REASON FOR VISIT Annual physical (female)--Ramana, --she reports blood at time while urinating but also questions if it maybe vaginal bleeding, she notices more dribble through the day. PLAN OF CARE Activity Details Follow Up 3 Months, prn Reason: VITAL SIGNS Height 64 in 2018-03-11 Weight 194.5 lbs 2018-03-11 Temperature 97.7 degrees Fahrenheit 2018-03-11 Heart Rate 78 bpm 2018-03-11 Respiratory Rate 20 2018-03-11 BMI 33.38 kg/m2 2018-03-11 Blood pressure systolic 120 mmHg 2018-03-11 Blood pressure diastolic 76 mmHg 2018-03-11 MEDICATIONS Medication Instructions Dosage Frequency Start Date End Date Duration Status Mucinex 600 MG Orally every 12 hrs 1 tablet as needed 12h Not- Taking Motrin Active Ibuprofen 400 MG Orally Three times a day 1 tablet with food or milk as needed 8h Active Gabapentin 300 MG Orally Once a day 1 capsule before bedtime 24h Feb, 30 day(s) Active Tylenol 325 MG Orally every 6 hrs 2 tablets as needed 6h Not- Taking RESULTS Name Result Date Reference Range MRI : Lumbar w/o contrast 2018-03-17 Mammogram, Bilateral Screening 2018-03-22 PROCEDURES No Known procedures INSTRUCTIONS MEDICATIONS ADMINISTERED No Known Medications MEDICAL (GENERAL) HISTORY Type Description Date Medical History arthritis Medical History GERD Medical History Chronic Fatigue Medical History Lumbago Medical History Tobacco abuse- quit 2017 Surgical History section Surgical History exploratory laparoscopy Surgical History skin cancer- basal cell Surgical History tonsillectomy Hospitalization History Surgery(s)/Childbirth(s) only
--- OUTSIDE RECORDS SUMMARY | 2019-01-03 09:14 | XMS REPORT ---
Author Author WINSOME HOWE Organization [facility] Address [address] [place] [address] Care Team Providers Care Allergy And Immunology Chief Name Role Phone HOWEWINSOME Phillip Unavailable PROBLEMS Type Condition ICD9-CM Code UAL50-ZX Code Onset Dates Condition Status SNOMED Code Problem Abdominal obesity E65 Active 579122640 Problem Body mass index (BMI) of 33.0-33.9 in adult Z68.33 Active 705835380 Problem Chronic fatigue R53.82 Active 87827537 Problem Elevated LDL cholesterol level E78.00 Active 065428294 Problem GERD with esophagitis K21.0 Active 896304247 Problem Stress incontinence in female N39.3 Active 23048312 Problem Lumbago with sciatica, right side M54.41 Active 792138350551202 Problem Lumbago with sciatica, left side M54.42 Active 271112598 Problem Other obesity due to excess calories E66.09 Active 018975800 Problem Other chronic pain G89.29 Active 84077473 ALLERGIES No Information ENCOUNTERS Encounter Location Date Diagnosis [place] [id number] [place] [address] 01595- 2197 Jun, [facility] [address] [place] [id number] [place] [address] 28043- 8581 Jun, [facility] [address] [place] [id number] [place] [address] 07537- 6004 May, GERD with esophagitis K21.0 ; Lumbago with sciatica, left side M54.42 and Lumbago with sciatica, right side M54.41 [facility] [address] [place] [id number] [place] [address] 97679- 4505 March, [facility] [address] [address]- 3341 March, Lumbago with sciatica, left side M54.42 [place] [address] [place] [id number] [place] [address] 42588- 7694 Feb, [place] [address] 13839- 2978 Feb, [place] [address] 83470- 5515 Feb, Encounter for well woman exam without gynecological exam Z00.00 ; Screening breast examination Z12.31 ; Lumbago with sciatica, right side M54.41 and Stress incontinence in female N39.3 [place] [address] 89509- 6583 06 Feb, 2018 Lumbago with sciatica, left side M54.42 ; Lumbago with sciatica, right side M54.41 ; Other chronic pain G89.29 ; Other obesity due to excess calories E66.09 and Body mass index (BMI) of 33.0-33.9 in adult Z68.33 [facility] [address] [address]697 -0381 Dec, [facility] [place] [address] 11832 -5717 Dec, [place] [address] 93225- 8564 Aug, Pain in right foot M79.671 [place] [address] 43255- 2882 Aug, Physical exam, routine Z00.00 ; Tobacco abuse Z72.0 ; Tobacco abuse counseling Z71.6 ; Chronic fatigue R53.82 ; Bump R22.9 and Abdominal obesity E65 [place] [address] [place] [id number] [place] [address] 62478- 5024 March, Abnormal mammogram R92.8 [place] [address] 36978- 9390 Feb, Routine gynecological examination Z01.419 ; Visit for gynecologic examination Z01.419 ; Obesity due to excess calories, unspecified obesity severity E66.09 and Pain in right foot M79.671 [place] [address] [place] [id number] [place] [address] 27240- 1559 Dec, Bronchitis J40 [place] [address] [place] [id number] [place] [address] 90322- 0697 Aug, Abnormal mammogram R92.8 [place] [address] [place] [id number] [place] [address] 96767- 8068 Aug, Abnormal mammogram R92.8 [place] [address] [place] [id number] [place] [address] 65193- 8419 Aug, [place] [address] [place] [id number] [place] [address] 38026- 7904 Jun, [place] [address] [place] [id number] [place] [address] 61699- 5621 May, Primary insomnia F51.01 ; Fatigue R53.83 ; Major depressive disorder with single episode, remission status unspecified F32.9 ; Coughing R05 ; Coughing up blood R04.2 ; Wellness examination Z00.00 ; Tobacco use Z72.0 and Tobacco abuse counseling Z71.6 [place] [address] [place] [id number] [place] [address] 28151- 8399 Jan, Fatigue R53.83 ; Family history of diabetes mellitus Z83.3 ; Wellness examination Z00.00 ; Heart murmur R01.1 and Stress incontinence N39.3 [place] [address] [place] [id number] [place] [address] 54443- 0224 Jun, Back pain of lumbar region with sciatica 724.2 [place] [address] [place] [id number] [place] [address] 03289- 9512 May, Fatigue 780.79 [place] [address] 95183- 6417 Feb, [facility] [place] [facility] [address] [id number] [place] [address]- 8874 Feb, [facility] [place] [facility] [address] [id number] [place] [address]- 4399 Jan, [facility] [place] [facility] [address] [id number] [place] [address]- 0027 Jan, [facility] [place] [facility] [address] [id number] [place] [address]- 1844 Sep, [facility] [place] [facility] [address] [id number] [place] [address]- 6579 Sep, [facility] [place] [facility] [address] [id number] [place] [address]- 0840 Sep, [facility] [place] [facility] [address] [id number] [place] [address]- 1462 Sep, [facility] [place] [facility] [address] [id number] [place] [address]- 7277 Sep, [facility] [place] [facility] [address] [id number] [place] [address]- 8266 Sep, [facility] [place] [facility] [address] [id number] [place] [address]- 6237 Sep, [facility] [place] [facility] [address] [id number] [place] [address]- 6985 Sep, [facility] [place] [facility] [address] [id number], [place] [address]- 4379 Aug, [facility] [place] [facility] [address] [id number] [place] [address]- 0797 Aug, [facility] [place] [facility] [address] [id number] [place] [address]- 8148 Aug, [facility] [place] [facility] [address] [id number] [place] [address]- 6005 Aug, [facility] [place] [facility] [address] [id number] [place] [address]- 8949 Aug, [facility] [address] [id number] [place] [address]- 4159 March, [facility] [place] [facility] [address] [id number] [place] [address]- 8895 March, [facility] [address] [id number] [place] [address]- 2097 March, [facility] [place] [facility] [address] [id number] [place] [address]- 4019 March, [facility] [address] [id number] [place] [address]- 5115 March, [facility] [place] [facility] [address] [id number] [place] [address]- 5465 March, [facility] [address] [id number] [place] [address]- 1910 March, [facility] [address] [id number] [place] [address]- 2018 March, [facility] [address] [id number] [place] [address]- 0381 March, [facility] [address] [id number] [place] [address]- 1386 March, [facility] [place] [facility] [address] [id number] [place] [address]- 6329 March, [facility] [place] [facility] [address] [id number] [place] [address]- 2129 March, [facility] [place] [facility] [address] [id number] [place] [address]- 3152 March, [facility] [place] [facility] [address] [id number] [place] [address]- 8231 March, [facility] [place] [facility] [address] [id number] [place] [address]- 1197 Jan, [facility] [place] [facility] [address] [id number] [place] [address]- 8153 10 Jan, 2014 [facility] [place] [facility] [address] [id number] [place] [address]- 0540 Jan, [facility] [place] [facility] [address] [id number] [place] [address]- 9676 Jan, [facility] [place] [facility] [address] [id number] [place] [address]- 6434 Jan, [facility] [place] [facility] [address] [id number] [place] [address]- 4663 Jan, [facility] [place] [facility] [address] [id number] [place] [address]- 0069 Dec, [facility] [place] [facility] [address] [id number] [place] [address]- 8672 Dec, [facility] [place] [facility] [address] [id number] [place] [address]- 7114 Dec, [facility] [place] [facility] [address] [id number] [place] [address]- 6236 Dec, [facility] [place] [facility] [address] [id number] [place] [address]- 4673 Dec, [facility] [place] [facility] [address] [facility] [id number] [place] [address]- 7261 Dec, [facility] [place] [facility] [address] [id number] [place] [address] Dec, [facility] [place] [facility] [address] [id number] [place] [address] Dec, [facility] [place] [facility] [address] [id number] [place] [address] Dec, [facility] [place] [facility] [address] [id number] [place] [address] Dec, [facility] [place] [facility] [address] [id number] [place] [address] 10 Dec, 2013 [facility] [address] [id number] [place] [address] Jan, [facility] [address] [id number] [place] [address] 28 Dec, 2012 [facility] [address] [id number] [place] [address] Dec, [facility] [address] [id number] [place] [address] Nov, [facility] [address] [id number] [place] [address] Feb, [facility] [address] [facility] [id number] [place] [address] Dec, [facility] [address] [facility] [id number] [place] [address] Dec, [facility] [address] [facility] [id number] [place] [address] Nov, [facility] [id number] [place] [address] Apr, [facility] [address] [facility] [id number] [place] [address] Sep, [facility] [address] [facility] [id number] [place] [address] Sep, [facility] [address] [id number] [place] [address] March, [facility] [address] [facility] [id number] [place] [address] Oct, [facility] [address] [facility] [id number] [place] [address] 17 Jul, 2009 [facility] [address] [facility] [id number] [place] [address] 14 Jul, 2009 IMMUNIZATIONS No Known Immunizations SOCIAL HISTORY Never Assessed REASON FOR VISIT MRI results PLAN OF CARE VITAL SIGNS MEDICATIONS Unknown [...]
--- OUTSIDE RECORDS SUMMARY | 2019-01-03 09:14 | XMS REPORT ---
Author Author KENIA ALLEN Organization [facility] Address [address] [place] [address] Care Team Providers Care Claims Clerk Name Role Phone STEWART ALLENIN Unavailable PROBLEMS Type Condition ICD9-CM Code BJM36-UE Code Onset Dates Condition Status SNOMED Code Problem Abdominal obesity E65 Active 767699585 Problem Body mass index (BMI) of 33.0-33.9 in adult Z68.33 Active 697551120 Problem Chronic fatigue R53.82 Active 99349939 Problem Elevated LDL cholesterol level E78.00 Active 907454781 Problem GERD with esophagitis K21.0 Active 854108525 Problem Stress incontinence in female N39.3 Active 97897097 Problem Lumbago with sciatica, right side M54.41 Active 893851724068720 Problem Lumbago with sciatica, left side M54.42 Active 673686462 Problem Other obesity due to excess calories E66.09 Active 161733976 Problem Other chronic pain G89.29 Active 20846270 ALLERGIES No Information ENCOUNTERS Encounter Location Date Diagnosis [place] [id number] [place] [address] 85607- 9340 Jun, [facility] [address] [place] [address] [id number] [place] [address] 65122- 2464 Jun, [facility] [id number] [place] [address] 41581- 6899 May, GERD with esophagitis K21.0 ; Lumbago with sciatica, left side M54.42 and Lumbago with sciatica, right side M54.41 [facility] [address] [id number] [place] [address] 06926- 8860 March, [facility] [address] [address]- 9585 March, Lumbago with sciatica, left side M54.42 [place] [address] [place] [id number] [place] [address] 59898- 8092 Feb, [place] [address] [address]- 0618 Feb, [place] [address] 42183- 9429 Feb, Encounter for well woman exam without gynecological exam Z00.00 ; Screening breast examination Z12.31 ; Lumbago with sciatica, right side M54.41 and Stress incontinence in female N39.3 [place] [address] 74493- 1389 06 Feb, 2018 Lumbago with sciatica, left side M54.42 ; Lumbago with sciatica, right side M54.41 ; Other chronic pain G89.29 ; Other obesity due to excess calories E66.09 and Body mass index (BMI) of 33.0-33.9 in adult Z68.33 [facility] WALK IN [facility] [address] 9[address]45 -9233 Dec, [facility] WALK IN [place] [address] 76[address] -9619 Dec, [place] [address] 40258- 1274 Aug, Pain in right foot M79.671 [place] [address] 91291- 4878 Aug, Physical exam, routine Z00.00 ; Tobacco abuse Z72.0 ; Tobacco abuse counseling Z71.6 ; Chronic fatigue R53.82 ; Bump R22.9 and Abdominal obesity E65 [place] [address] [place] [id number] [place] [address] 11535- 4667 March, Abnormal mammogram R92.8 [place] [address] 74673- 2172 Feb, Routine gynecological examination Z01.419 ; Visit for gynecologic examination Z01.419 ; Obesity due to excess calories, unspecified obesity severity E66.09 and Pain in right foot M79.671 [place] [address] [place] [id number] [place] [address] 08376- 1152 Dec, Bronchitis J40 [place] [address] [place] [id number] [place] [address] 62697- 1529 Aug, Abnormal mammogram R92.8 [place] [address] [place] [id number] [place] [address] 97405- 8542 Aug, Abnormal mammogram R92.8 [place] [address] [place] [id number] [place] [address] 06479- 3525 Aug, [place] [address] [place] [id number] [place] [address] 36995- 8331 Jun, [place] [address] [place] [id number] [place] [address] 38307- 6044 May, Primary insomnia F51.01 ; Fatigue R53.83 ; Major depressive disorder with single episode, remission status unspecified F32.9 ; Coughing R05 ; Coughing up blood R04.2 ; Wellness examination Z00.00 ; Tobacco use Z72.0 and Tobacco abuse counseling Z71.6 [place] [address] [place] [id number] [place] [address] 75628- 2116 Jan, Fatigue R53.83 ; Family history of diabetes mellitus Z83.3 ; Wellness examination Z00.00 ; Heart murmur R01.1 and Stress incontinence N39.3 [place] [address] [place] [id number] [place] [address] 00969- 9349 Jun, Back pain of lumbar region with sciatica 724.2 [place] [address] [place] [id number] [place] [address] 66156- 1893 May, Fatigue 780.79 [place] [address] 46392- 5990 Feb, [facility] [place] [facility] [address] [id number] [place] [address]- 1676 Feb, [facility] [place] [facility] [address] [id number] [place] [address]- 3746 Jan, [facility] [place] [facility] [address] [id number] [place] [address]- 6963 Jan, [facility] [place] [facility] [address] [id number] [place] [address]- 3131 Sep, [facility] [place] [facility] [address] [id number] [place] [address]- 8420 Sep, [facility] [place] [facility] [address] [id number] [place] [address]- 8696 Sep, [facility] [place] [facility] [address] [id number] [place] [address]- 3927 Sep, [facility] [place] [facility] [address] [id number] [place] [address]- 9788 Sep, [facility] [place] [facility] [address] [id number] [place] [address]- 3542 Sep, [facility] [place] [facility] [address] [id number] [place] [address]- 8001 Sep, [facility] [place] [facility] [address] [id number] [place] [address]- 2532 Sep, [facility] [place] [facility] [address] [id number], [place] [address]- 4751 Aug, [facility] [place] [facility] [address] [id number] [place] [address]- 9938 Aug, [facility] [place] [facility] [address] [id number] [place] [address]- 5323 Aug, [facility] [place] [facility] [address] [id number] [place] [address]- 2815 Aug, [facility] [place] [facility] [address] [id number] [place] [address]- 6829 Aug, [facility] [address] [id number] [place] [address]- 5420 March, [facility] [place] [facility] [address] [id number] [place] [address]- 6547 March, [facility] [place] [facility] [address] [id number] [place] [address]- 0673 March, [facility] [place] [facility] [address] [id number] [place] [address]- 8305 March, [facility] [place] [facility] [address] [id number] [place] [address]- 2131 March, [facility] [place] [facility] [address] [id number] [place] [address]- 4142 March, [facility] [address] [id number] [place] [address]- 9785 March, [facility] [place] [facility] [address] [id number] [place] [address]- 7430 March, [facility] [place] [facility] [address] [id number] [place] [address]- 4294 March, [facility] [place] [facility] [address] [id number] [place] [address]- 4545 March, [facility] [place] [facility] [address] [id number] [place] [address]- 7238 March, [facility] [place] [facility] [address] [id number] [place] [address]- 7093 March, [facility] [place] [facility] [address] [id number] [place] [address]- 3864 March, [facility] [place] [facility] [address] [id number] [place] [address]- 3484 March, [facility] [place] [facility] [address] [id number] [place] [address]- 5758 Jan, [facility] [place] [facility] [address] [id number] [place] [address]- 2701 10 Jan, 2014 [facility] [place] [facility] [address] [id number] [place] [address]- 9912 Jan, [facility] [place] [facility] [address] [id number] [place] [address]- 1794 Jan, [facility] [place] [facility] [address] [id number] [place] [address]- 1011 Jan, [facility] [place] [facility] [address] [id number] [place] [address]- 3358 Jan, [facility] [place] [facility] [address] [id number] [place] [address]- 2430 Dec, [facility] [place] [facility] [address] [id number] [place] [address]- 6330 Dec, [facility] [place] [facility] [address] [id number] [place] [address]- 9732 Dec, [facility] [place] [facility] [address] [id number] [place] [address]- 6031 Dec, [facility] [place] [facility] [address] [id number] [place] [address]- 5164 Dec, [facility] [place] [facility] [address] [facility] [id number] [place] [address]- 2350 Dec, [facility] [place] [facility] [address] [id number] [place] [address]- 2094 Dec, [facility] [place] [facility] [address] [id number] [place] [address]- 5346 Dec, [facility] [place] [facility] [address] [id number] [place] [address]- 9600 Dec, [facility] [place] [facility] [address] [id number] [place] [address]- 6256 Dec, [facility] [place] [facility] [address] [id number] [place] [address]- 1538 10 Dec, 2013 [facility] [address] [id number] [place] [address]- 9127 Jan, [facility] [address] [id number] [place] [address]- 4636 28 Dec, 2012 [facility] [address] [id number] [place] [address]- 5246 Dec, [facility] [address] [id number] [place] [address]- 2022 Nov, [facility] [address] [id number] [place] [address]- 9484 Feb, [facility] [address] [facility] [id number] [place] [address]- 8706 Dec, [facility] [address] [facility] [id number] [place] [address]- 4156 Dec, [facility] [address] [facility] [id number] [place] [address]- 8130 Nov, [facility] [id number] [place] [address]- 9738 Apr, [facility] [address] [facility] [id number] [place] [address]- 9591 Sep, [facility] [address] [facility] [id number] [place] [address]- 2796 Sep, [facility] [address] [id number] [place] [address]- 3676 March, [facility] [address] [facility] [id number] [place] [address]- 1686 Oct, [facility] [address] [facility] [id number] [place] [address]- 2546 17 Jul, 2009 [facility] [address] [facility] [id number] [place] [address]- 7461 14 Jul, 2009 IMMUNIZATIONS No Known Immunizations SOCIAL HISTORY Never Assessed REASON FOR VISIT Requests return call PLAN OF CARE VITAL SIGNS MEDICATIONS Unknown [...]
--- OUTSIDE RECORDS SUMMARY | 2019-01-03 09:15 | XMS REPORT ---
Author Author WINSOME HOWE Organization [facility] Address [address] [place] [address] Care Team Providers Care Fuel Quality Tech Name Role Phone HOWEWINSOME Phillip Unavailable PROBLEMS Type Condition ICD9-CM Code DVR43-UH Code Onset Dates Condition Status SNOMED Code Problem Abdominal obesity E65 Active 605614673 Problem Body mass index (BMI) of 33.0-33.9 in adult Z68.33 Active 960767773 Problem Chronic fatigue R53.82 Active 72830435 Problem Elevated LDL cholesterol level E78.00 Active 643796140 Problem GERD with esophagitis K21.0 Active 870532064 Problem Stress incontinence in female N39.3 Active 05820014 Problem Lumbago with sciatica, right side M54.41 Active 522414786748394 Problem Lumbago with sciatica, left side M54.42 Active 428211452 Problem Other obesity due to excess calories E66.09 Active 442474937 Problem Other chronic pain G89.29 Active 32569890 ALLERGIES No Known Allergies ENCOUNTERS Encounter Location Date Diagnosis [place] [address] [place] [address] 24041- 4034 Jun, [facility] [address] [place] [id number] [place] [address] 48320- 3189 Jun, [facility] [address] [place] [id number] [place] [address] 07059- 8899 May, GERD with esophagitis K21.0 ; Lumbago with sciatica, left side M54.42 and Lumbago with sciatica, right side M54.41 [facility] [address] [place] [id number] [place] [address] 19365- 0200 March, [facility] [address] [id number] [place] [address] 31055- 8978 March, Lumbago with sciatica, left side M54.42 [place] [address] [place] [id number] [place] [address] 87790- 8517 Feb, [place] [address] 71696- 7030 Feb, [place] [address] 65926- 7884 Feb, Encounter for well woman exam without gynecological exam Z00.00 ; Screening breast examination Z12.31 ; Lumbago with sciatica, right side M54.41 and Stress incontinence in female N39.3 [place] [address] 90100- 7541 06 Feb, 2018 Lumbago with sciatica, left side M54.42 ; Lumbago with sciatica, right side M54.41 ; Other chronic pain G89.29 ; Other obesity due to excess calories E66.09 and Body mass index (BMI) of 33.0-33.9 in adult Z68.33 [facility] WALK IN [facility] [address] [address]74 -7665 07 Dec, 2017 [facility] WALK IN [place] [address] 24649 -2511 Dec, [place] [address] [place] [id number] [place] [address] 93908- 0161 Aug, Pain in right foot M79.671 [place] [address] 53958- 1154 Aug, Physical exam, routine Z00.00 ; Tobacco abuse Z72.0 ; Tobacco abuse counseling Z71.6 ; Chronic fatigue R53.82 ; Bump R22.9 and Abdominal obesity E65 [place] [address] 14004- 5310 March, Abnormal mammogram R92.8 [place] [address] 71293- 3751 Feb, Routine gynecological examination Z01.419 ; Visit for gynecologic examination Z01.419 ; Obesity due to excess calories, unspecified obesity severity E66.09 and Pain in right foot M79.671 [place] [address] [place] [id number] [place] [address] 26410- 9051 Dec, Bronchitis J40 [place] [address] [place] [id number] [place] [address] 78609- 7548 Aug, Abnormal mammogram R92.8 [place] [address] 92016- 4348 Aug, Abnormal mammogram R92.8 [place] [address] 14027- 9436 Aug, [place] [address] [place] [id number] [place] [address] 92995- 1782 Jun, [place] [address] [place] [id number] [place] [address] 99703- 9821 May, Primary insomnia F51.01 ; Fatigue R53.83 ; Major depressive disorder with single episode, remission status unspecified F32.9 ; Coughing R05 ; Coughing up blood R04.2 ; Wellness examination Z00.00 ; Tobacco use Z72.0 and Tobacco abuse counseling Z71.6 [place] [address] [place] [id number] [place] [address] 12585- 2973 Jan, Fatigue R53.83 ; Family history of diabetes mellitus Z83.3 ; Wellness examination Z00.00 ; Heart murmur R01.1 and Stress incontinence N39.3 [place] [address] [place] [id number] [place] [address] 34935- 4956 Jun, Back pain of lumbar region with sciatica 724.2 [place] [address] [place] [id number] [place] [address] 00833- 6952 May, Fatigue 780.79 [place] [address] 29130- 1126 Feb, [facility] [place] [facility] [address] [id number] [place] [address]- 1152 Feb, [facility] [place] [facility] [address] [id number] [place] [address]- 4646 Jan, [facility] [place] [facility] [address] [id number] [place] [address]- 3938 Jan, [facility] [place] [facility] [address] [id number] [place] [address]- 3405 Sep, [facility] [place] [facility] [address] [id number] [place] [address]- 6697 Sep, [facility] [place] [facility] [address] [id number] [place] [address]- 5768 Sep, [facility] [place] [facility] [address] [id number] [place] [address]- 6004 Sep, [facility] [place] [facility] [address] [id number] [place] [address]- 3052 Sep, [facility] [place] [facility] [address] [id number] [place] [address]- 3409 Sep, [facility] [place] [facility] [address] [id number], [place] [address]- 5111 Sep, [facility] [place] [facility] [address] [id number], [place] [address]- 9663 Sep, [facility] [place] [facility] [address] [id number], [place] [address]- 4468 Aug, [facility] [place] [facility] [address] [id number] [place] [address]- 8811 Aug, [facility] [place] [facility] [address] [id number], [place] [address]- 1050 Aug, [facility] [place] [facility] [address] [id number] [place] [address]- 3549 Aug, [facility] [place] [facility] [address] [id number] [place] [address]- 0130 Aug, [facility] [address] [id number] [place] [address]- 7891 March, [facility] [place] [facility] [address] [id number] [place] [address]- 8409 March, [facility] [place] [facility] [address] [id number] [place] [address]- 5489 March, [facility] [place] [facility] [address] [id number] [place] [address]- 1470 March, [facility] [place] [facility] [address] [id number] [place] [address]- 2944 March, [facility] [place] [facility] [address] [id number] [place] [address]- 8704 March, [facility] [place] [facility] [address] [id number] [place] [address]- 5131 March, [facility] [place] [facility] [address] [id number] [place] [address]- 9644 March, [facility] [place] [facility] [address] [id number] [place] [address]- 5484 March, [facility] [place] [facility] [address] [id number] [place] [address]- 2717 March, [facility] [place] [facility] [address] [id number] [place] [address]- 4125 March, [facility] [place] [facility] [address] [id number] [place] [address]- 4723 March, [facility] [place] [facility] [address] [id number] [place] [address]- 5381 March, [facility] [place] [facility] [address] [id number] [place] [address]- 3083 March, [facility] [place] [facility] [address] [id number] [place] 6409 Jan, [facility] [place] [facility] [address] [id number] [place] [address]- 8288 Jan, [facility] [place] [facility] [address] [id number] [place] [address]- 9159 Jan, [facility] [place] [facility] [address] [id number] [place] [address]- 1943 Jan, [facility] [place] [facility] [address] [id number] [place] [address]- 4624 Jan, [facility] [place] [facility] [address] [id number] [place] [address]- 4116 Jan, [facility] [place] [facility] [address] [id number] [place] [address]- 5593 Dec, [facility] [place] [facility] [address] [facility] [id number] [place] [address]- 8945 Dec, [facility] [place] [facility] [address] [id number] [place] [address]- 5708 Dec, [facility] [place] [facility] [address] [id number] [place] [address]- 2112 Dec, [facility] [place] [facility] [address] [facility] [id number] [place] [address]- 5371 Dec, [facility] [place] [facility] [address] [facility] [id number] [place] [address]- 9043 Dec, [facility] [place] [facility] [address] [id number] [place] [address]- 2302 Dec, [facility] [place] [facility] [address] [id number] [place] [address]- 0784 Dec, [facility] [place] [facility] [address] [id number] [place] [address]- 6744 Dec, [facility] [place] [facility] [address] [facility] [id number] [place] [address]- 3920 Dec, [facility] [place] [facility] [address] [id number] [place] [address]- 4169 10 Dec, 2013 [facility] [address] [id number] [place] [address]- 9214 Jan, [facility] [address] [id number] [place] [address] 28 Dec, 2012 [facility] [address] [id number] [place] [address] Dec, [facility] [address] [id number] [place] [address] Nov, [facility] [address] [id number] [place] [address] Feb, [facility] [address] [id number] [place] [address] Dec, [facility] [address] [id number] [place] [address] Dec, [facility] [address] [id number] [place] [address] Nov, [facility] [address] [facility] [id number] [place] [address] Apr, [facility] [address] [facility] [id number] [place] [address] Sep, [facility] [address] [id number] [place] [address] Sep, [facility] [address] [id number] [place] [address] March, [facility] [address] [id number] [place] [address] Oct, [facility] [address] [id number] [place] [address] 17 Jul, 2009 [facility] [address] [id number] [place] [address] 14 Jul, 2009 IMMUNIZATIONS No Known Immunizations SOCIAL HISTORY Never Assessed REASON FOR VISIT Transition of Care--Ramana, --she was told she had arthitis in her back but she belives that its something else. Her feet/hands seem to tingle and hurt. PLAN OF CARE Activity Details Follow Up 3 Months, prn Reason: VITAL SIGNS Height 64 in 2018-03-04 Weight 196.4 lbs 2018-03-04 Temperature 97.8 degrees Fahrenheit 2018-03-04 Heart Rate 72 bpm 2018-03-04 Respiratory Rate 20 2018-03-04 BMI 33.71 kg/m2 2018-03-04 Blood pressure systolic 112 mmHg 2018-03-04 Blood pressure diastolic 78 mmHg 2018-03-04 MEDICATIONS Medication Instructions Dosage Frequency Start Date End Date Duration Status Mucinex 600 MG Orally every 12 hrs 1 tablet as needed 12h Not- Taking Motrin Active Gabapentin 300 MG Orally Once a day 1 capsule before bedtime 24h Feb, 30 day(s) Active Tylenol 325 MG Orally every 6 hrs 2 tablets as needed 6h Not- Taking Ibuprofen 400 MG Orally Three times a day 1 tablet with food or milk as needed 8h Active RESULTS Name Result Date Reference Range Xray : Spine, Lumbar 2-3 views (IN HOUSE) 2018-03-04 PROCEDURES Procedure Date Ordered Result Body Site X-RAY EXAM OF LOWER SPINE March 04, 2018 INSTRUCTIONS MEDICATIONS ADMINISTERED No Known Medications MEDICAL (GENERAL) HISTORY Type Description Date Medical History arthritis Medical History GERD Medical History Chronic Fatigue Medical History Lumbago Medical History Tobacco abuse- quit 2018 Surgical History section Surgical History exploratory laparoscopy Surgical History skin cancer- basal cell Surgical History tonsillectomy Hospitalization History Surgery(s)/Childbirth(s) only
--- OUTSIDE RECORDS SUMMARY | 2019-01-03 09:15 | XMS REPORT ---
Author Author ANUSHKA HUMPHRIES [facility] Address [address] [place] [address] Care Team Providers Care Singing Teacher Name Role Phone ANUSHKA HUMPHRIES Unavailable PROBLEMS Type Condition ICD9-CM Code FUT57-PR Code Onset Dates Condition Status SNOMED Code Problem Abnormal mammogram R92.8 Active 277947977 Problem Chronic fatigue R53.82 Active 92935320 Problem Abdominal obesity E65 Active 252317632 Problem Elevated LDL cholesterol level E78.00 Active 495114675 Problem Tobacco abuse counseling Z71.6 Active 93010769 Problem Stress incontinence in female N39.3 Active 43409135 Problem Other obesity due to excess calories E66.09 Active 140330476 Problem Lumbago with sciatica, left side M54.42 Active 354355684 Problem Body mass index (BMI) of 33.0-33.9 in adult Z68.33 Active 906207216 Problem Other chronic pain G89.29 Active 00230685 Problem Lumbago with sciatica, right side M54.41 Active [id number] ALLERGIES No Known Allergies ENCOUNTERS Encounter Location Date Diagnosis [facility] [id number] [address] Jun, [facility] [id number] [place] [address] May, [facility] [id number] [place] [address]87- 8771 March, [facility] [id number] [place] [address]85- [address] March, Lumbago with sciatica, left side M54.42 [facility] [id number] [address] Feb, [facility] [id number] [place] [address] 18 Feb, 2018 [place] [id number] [place] [address]- 1787 Feb, Encounter for well woman exam without gynecological exam Z00.00 ; Screening breast examination Z12.31 ; Lumbago with sciatica, right side M54.41 and Stress incontinence in female N39.3 [place] [address] [address] 06 Feb, 2018 Lumbago with sciatica, left side M54.42 ; Lumbago with sciatica, right side M54.41 ; Other chronic pain G89.29 ; Other obesity due to excess calories E66.09 and Body mass index (BMI) of 33.0-33.9 in adult Z68.33 [facility] [address] [address] 07 Dec, 2017 [facility] [address] [address] Dec, [place] [id number] [place] [address] Aug, Pain in right foot M79.671 [place] [id number] [place] [address]- 7785 Aug, Physical exam, routine Z00.00 ; Tobacco abuse Z72.0 ; Tobacco abuse counseling Z71.6 ; Chronic fatigue R53.82 ; Bump R22.9 and Abdominal obesity E65 [place] [id number] [place] [address]- 100[address] March, Abnormal mammogram R92.8 [place] [id number] [place] [address]- [address] 28 Feb, 2017 Routine gynecological examination Z01.419 ; Visit for gynecologic examination Z01.419 ; Obesity due to excess calories, unspecified obesity severity E66.09 and Pain in right foot M79.671 [place] [id number] [place] [address]- 86[address] Dec, Bronchitis J40 [place] [id number] [place] [address] 9[address]27- 5959 Aug, Abnormal mammogram R92.8 [place] [id number] [place] [address]72- 9766 Aug, Abnormal mammogram R92.8 [place] [address] [address] Aug, [place] [id number] [place] [address]- [address] Jun, [place] [address] [address] May, Primary insomnia F51.01 ; Fatigue R53.83 ; Major depressive disorder with single episode, remission status unspecified F32.9 ; Coughing R05 ; Coughing up blood R04.2 ; Wellness examination Z00.00 ; Tobacco use Z72.0 and Tobacco abuse counseling Z71.6 [place] [id number] [place] [address]- [address] Jan, Fatigue R53.83 ; Family history of diabetes mellitus Z83.3 ; Wellness examination Z00.00 ; Heart murmur R01.1 and Stress incontinence N39.3 [place] [id number] [place] [address]27- 8[address] Jun, Back pain of lumbar region with sciatica 724.2 [place] [id number] [place] [address]- 5143 May, Fatigue 780.79 [place] [id number] [place] [address] 17146- 8459 14 Feb, 2015 [place] [id number] [place] [address]53- 5625 13 Feb, 2015 [place] [address] [address] Jan, [facility] [place] [facility] [address] [id number] [place] [address] Jan, [facility] [place] [facility] [address] [id number] [place] [address]- [address]995 Sep, [facility] [place] [facility] [address] [id number] [place] [address]- 66[address] Sep, [facility] [place] [facility] [address] [id number] [place] [address]- 29[address] Sep, [facility] [place] [facility] [address] [id number] [place] [address]- 0762 Sep, [facility] [place] [facility] [address] [id number] [place] [address]- 8591 Sep, [facility] [place] [facility] [address] [id number] [place] [address]- 225[address] Sep, [facility] [place] [facility] [address] [id number] [address] Sep, [facility] [place] [facility] [address] [id number] [place] [address]- 75[address] Sep, [facility] [place] [facility] [address] [id number] [place] [address] Aug, [facility] [place] [facility] [address] [id number] [address]- 78[address] Aug, [facility] [place] [facility] [address] [id number] [place] [address]- [address] Aug, [facility] [place] [facility] [address] [id number] [place] [address]- 5140 Aug, [facility] [place] [facility] [address] [id number] [place] [address]- 38[address] Aug, [facility] [place] [facility] [address] [id number] [address] 5[address] March, [facility] [place] [facility] [address] [id number] [place] [address]- [address]237 March, [facility] [address] [id number] [place] [address]- [address]507 March, [facility] [place] [facility] [address] [id number] [place] [address]- 9529 March, [facility] [address] [id number] [place] [address]- 7585 March, [facility] [place] [facility] [address] [id number] [place] [address]- 6792 March, [facility] [address] [id number] [place] [address]- 5882 March, [facility] [address] [id number] [place] [address]- 8495 March, [facility] [address] [id number] [place] [address]- 0771 March, [facility] [address] [id number] [place] [address]- 8072 March, [facility] [place] [facility] [address] [id number] [place] [address]- 8186 March, [facility] [address] [id number] [place] [address]- 7484 March, [facility] [place] [facility] [address] [id number] [place] [address]- 8295 March, [facility] [place] [facility] [address] [id number] [place] [address]- 7004 March, [facility] [place] [facility] [address] [id number] [place] [address]- 8280 Jan, [facility] [place] [facility] [address] [id number] [place] [address]- 1042 Jan, [facility] [place] [facility] [address] [id number] [place] [address]- 6264 Jan, [facility] [place] [facility] [address] [id number] [place] [address]- 4565 Jan, [facility] [place] [facility] [address] [id number] [place] [address]- 6676 Jan, [facility] [place] [facility] [address] [id number] [place] [address]- 5979 Jan, [facility] [place] [facility] [address] [id number] [place] [address]- 8526 Dec, [facility] [place] [facility] [address] [id number] [place] [address]- 2613 Dec, [facility] [place] [facility] [address] [id number] [place] [address]- 5311 Dec, [facility] [place] [facility] [address] [id number] [place] [address]- 5035 Dec, [facility] [place] [facility] [address] [id number] [place] [address]- 6581 Dec, [facility] [place] [facility] [address] [id number] [place] [address]- 0605 Dec, [facility] [place] [facility] [address] [id number] [place] [address]- 4725 Dec, [facility] [place] [facility] [address] [id number] [place] [address]- 9848 Dec, [facility] [place] [facility] [address] [id number] [place] [address]- 6270 Dec, [facility] [place] [facility] [address] [id number] [place] [address]- 3187 Dec, [facility] [place] [facility] [address] [id number] [place] [address]- 7318 Dec, [facility] [place] [facility] [address] [id number] [place] [address]- 0836 Jan, [facility] [place] [facility] [address] [address]- 7686 Dec, [facility] [address] [facility] [id number] [address]- 56[address] Dec, [facility] [id number] [address]- 4746 Nov, [facility] [address] [address]- 5[address] Feb, [facility] [address] [facility] [id number] [place] [address]- 9616 Dec, [facility] [address] [address]- 1136 Dec, [facility] [address] [address]- 0446 Nov, [facility] [address] [address]- 4[address] Apr, [facility] [address] [address]- 1340 Sep, [facility] [address] [address]- 8026 Sep, [facility] [id number] [address]- 2682 March, [facility] [id number] [address]- 1643 Oct, [facility] [id number] [address]- 9835 Jul, [facility] [id number] [address]- 0791 Jul, IMMUNIZATIONS No Known Immunizations SOCIAL HISTORY Never Assessed REASON FOR VISIT Pt states she was told that she had the flu- yesterday started couging so hard that lungs hurt/burn- started coughing up blood last night Ruby, Pt is demading a chest xray- of she doesnt get on she wants to talk to admin PLAN OF CARE VITAL SIGNS Height 64 in 2018-01-05 Weight 190.0 lbs 2018-01-05 Temperature 97.6 degrees Fahrenheit 2018-01-05 Heart Rate 68 bpm 2018-01-05 Respiratory Rate 20 2018-01-05 BMI 32.61 kg/m2 2018-01-05 Blood pressure systolic 128 mmHg 2018-01-05 Blood pressure diastolic 80 mmHg 2018-01-05 MEDICATIONS Medication Instructions Dosage Frequency Start Date End Date Duration Status Tylenol 325 MG Orally every 6 hrs 2 tablets as needed 6h Active Motrin Active Mucinex 600 MG Orally every 12 hrs 1 tablet as needed 12h Active RESULTS No Results PROCEDURES No Known procedures INSTRUCTIONS MEDICATIONS ADMINISTERED No Known Medications MEDICAL (GENERAL) HISTORY Type Description Date Medical History arthritis Surgical History section Surgical History exploratory laparoscopy Surgical History skin cancer- basal cell Surgical History tonsillectomy Hospitalization History Surgery(s)/Childbirth(s) only
--- OUTSIDE RECORDS SUMMARY | 2019-01-03 09:16 | XMS REPORT | Continuity of Care Document ---
Author Author [facility] Ctr of [facility] Ctr of [facility] Address Unknown Phone Unavailable Allergies Active Description [...] Coded Attending Type Code Diagnosis Diagnosed By 10/28/1553 WINSOME HOWE APRN Ot M54.2 CERVICALGIA 06/26/2008 780.79 MALAISE AND FATIGUE 06/26/2008 787.91 DIARRHEA 06/26/2008 992.5 HEAT EXHAUSTION UNSPECIFIED 06/26/2008 CARRILLO DO, ELLEN K 780.79 Malaise And Fatigue 06/26/2008 CARRILLO DO, ELLEN K 787.91 Diarrhea 06/26/2008 CARRILLO DO, ELLEN K 992.5 Heat Exhaustion Unspecified 06/26/2008 SHIRA YOON CHIVO R 780.79 Malaise And Fatigue 06/26/2008 SHIRA YOON CHIVO R 787.91 Diarrhea 06/26/2008 SHIRA YOON CHIVO R 992.5 Heat Exhaustion Unspecified 06/26/2008 CARRILLO DO, ELLEN K 780.79 Malaise And Fatigue 06/26/2008 CARRILLO DO, ELLEN K 787.91 Diarrhea 06/26/2008 CARRILLO DO, ELLEN K 992.5 Heat Exhaustion Unspecified 06/26/2008 ISH RAPIER INSERTION LOOM FIXER, GREGOR A 780.79 Malaise And Fatigue 06/26/2008 ISH RAPIER INSERTION LOOM FIXER, GREGOR A 787.91 Diarrhea 06/26/2008 ISH RAPIER INSERTION LOOM FIXER, GREGOR A 992.5 Heat Exhaustion Unspecified 06/26/2008 CARRILLO DO, ELLEN K 780.79 Malaise And Fatigue 06/26/2008 CARRILLO DO, ELLEN K 787.91 Diarrhea 06/26/2008 CARRILLO DO, ELLEN K 992.5 Heat Exhaustion Unspecified 06/26/2008 SHELDON SILVA APRNINA R 780.79 Malaise And Fatigue 06/26/2008 SHIRA HUMPHREYN, CHIVO R 787.91 Diarrhea 06/26/2008 SHIRA HUMPHREYN CHIVO R 992.5 Heat Exhaustion Unspecified 09/04/2008 784.7 EPISTAXIS 09/04/2008 V16.49 FAMILY HISTORY OF MALIGNANT NEOPLASM OF OTHER 09/04/2008 CARRILLO DO, ELLEN K 784.7 Epistaxis 09/04/2008 CARRILLO DO, ELLEN K V16.49 FAMILY HISTORY OF MALIGNANT NEOPLASM OF OTHER 09/04/2008 SHIRA YOON CHIVO R 784.7 Epistaxis 09/04/2008 SHELDON SILVA APRNINA R V16.49 FAMILY HISTORY OF MALIGNANT NEOPLASM OF OTHER 09/04/2008 CARRILLO DO, ELLEN K 784.7 Epistaxis 09/04/2008 CARRILLO DO, ELLEN K V16.49 FAMILY HISTORY OF MALIGNANT NEOPLASM OF OTHER 09/04/2008 ISHJackson YOON GREGOR A 784.7 Epistaxis 09/04/2008 ISH YOON GREGOR A V16.49 FAMILY HISTORY OF MALIGNANT NEOPLASM OF OTHER 09/04/2008 CARRILLO DO, ELLEN K 784.7 Epistaxis 09/04/2008 CARRILLO DO, ELLEN K V16.49 FAMILY HISTORY OF MALIGNANT NEOPLASM OF OTHER 09/04/2008 SHIRA YOON CHIVO R 784.7 Epistaxis 09/04/2008 SHIRA YOON CHIVO R V16.49 FAMILY HISTORY OF MALIGNANT NEOPLASM OF OTHER 12/05/2008 564.00 CONSTIPATION 12/05/2008 V72.31 ROUTINE GYNECOLOGICAL EXAMINATION 12/05/2008 CARRILLO DO, ELLEN K 564.00 CONSTIPATION 12/05/2008 CARRILLO DO, ELLEN K V72.31 Routine Gynecological Examination 12/05/2008 SHIRA YOON CHIVO R 564.00 CONSTIPATION 12/05/2008 SHIRA YOON CHIVO R V72.31 Routine Gynecological Examination 12/05/2008 CARRILLO DO, ELLEN K 564.00 CONSTIPATION 12/05/2008 CARRILLO DO, ELLEN K V72.31 Routine Gynecological Examination 12/05/2008 ISH YOON GREGOR A 564.00 CONSTIPATION 12/05/2008 GREGOR DENG APRN A V72.31 Routine Gynecological Examination 12/05/2008 CARRILLO DO, ELLEN K 564.00 CONSTIPATION 12/05/2008 CARRILLO DO, ELLEN K V72.31 Routine Gynecological Examination 12/05/2008 SHIRA YOON, CHIVO R 564.00 CONSTIPATION 12/05/2008 SHIRA HUMPHREYN, CHIVO R V72.31 Routine Gynecological Examination 07/30/2009 599.0 URINARY TRACT INFECTION SITE NOT SPECIFIED 07/30/2009 CARRILLO DO, ELLEN K 599.0 Urinary Tract Infection Site Not Specified 07/30/2009 SHIRA HUMPHREYN, CHIVO R 599.0 Urinary Tract Infection Site Not Specified 07/30/2009 CARRILLO DO, ELLEN K 599.0 Urinary Tract Infection Site Not Specified 07/30/2009 GREGOR DENG APRN A 599.0 Urinary Tract Infection Site Not Specified 07/30/2009 CARRILLO DO, ELLEN K 599.0 Urinary Tract Infection Site Not Specified 07/30/2009 SHELDON SILVA APRNINA R 599.0 Urinary Tract Infection Site Not Specified 08/12/2009 625.9 pelvic pain 08/12/2009 CARRILLO DO, ELLEN K 625.9 Pelvic Pain 08/12/2009 SHIRA YOON, CHIVO R 625.9 Pelvic Pain 08/12/2009 CARRILLO DO, [...] MENOPAUSAL AND POSTMENOPAUSAL DISORDER UNSPECIFIED 04/11/2010 SHIRA YOON CHIVO R 305.1 NONDEPENDENT ABUSE OF DRUGS, TOBACCO USE DISORDER 04/11/2010 SHIRA YOON CHIVO R 611.71 Mastodynia 04/11/2010 SHIRA RAPIER INSERTION LOOM FIXER, CHIVO R 627.9 MENOPAUSAL AND POSTMENOPAUSAL DISORDER UNSPECIFIED 04/11/2010 CARRILLO DO, ELLEN K 305.1 NONDEPENDENT ABUSE OF DRUGS, TOBACCO USE DISORDER 04/11/2010 CARRILLO DO, ELLEN K 611.71 Mastodynia 04/11/2010 CARRILLO DO, ELLEN K 627.9 MENOPAUSAL AND POSTMENOPAUSAL DISORDER UNSPECIFIED 04/11/2010 ISH RAPIER INSERTION LOOM FIXER, GREGOR A 305.1 NONDEPENDENT ABUSE OF DRUGS, TOBACCO USE DISORDER 04/11/2010 ISH RAPIER INSERTION LOOM FIXER, GREGOR A 611.71 Mastodynia 04/11/2010 ISH RAPIER INSERTION LOOM FIXER, GREGOR A 627.9 MENOPAUSAL AND POSTMENOPAUSAL DISORDER UNSPECIFIED 04/11/2010 CARRILLO DO ELLEN K 305.1 NONDEPENDENT ABUSE OF DRUGS, TOBACCO USE DISORDER 04/11/2010 CARRILLO DO ELLEN K 611.71 Mastodynia 04/11/2010 CARRILLO DO ELLEN K 627.9 MENOPAUSAL AND POSTMENOPAUSAL DISORDER UNSPECIFIED 04/11/2010 SHIRA RAPIER INSERTION LOOM FIXER, CHIVO R 305.1 NONDEPENDENT ABUSE OF DRUGS, TOBACCO USE DISORDER 04/11/2010 SHIRA RAPIER INSERTION LOOM FIXER, CHIVO R 611.71 Mastodynia 04/11/2010 SHIRA RAPIER INSERTION LOOM FIXER, CHIVO R 627.9 MENOPAUSAL AND POSTMENOPAUSAL DISORDER UNSPECIFIED 10/02/2010 466.0 BRONCHITIS, ACUTE 10/02/2010 786.07 WHEEZING 10/02/2010 786.2 cough 10/02/2010 CARRILLO DO ELLEN K 466.0 Bronchitis, Acute 10/02/2010 CARRILLO DO, ELLEN K 786.07 Wheezing 10/02/2010 CARRILLO DO, ELLEN K 786.2 Cough 10/02/2010 SHIRA RAPIER INSERTION LOOM FIXER, CHIVO R 466.0 Bronchitis, Acute 10/02/2010 SHIRA RAPIER INSERTION LOOM FIXER, CHIVO R 786.07 Wheezing 10/02/2010 SHIRA RAPIER INSERTION LOOM FIXER, CHIVO R 786.2 Cough 10/02/2010 CARRILLO DO, ELLEN K 466.0 Bronchitis, Acute 10/02/2010 CARRILLO DO, ELLEN K 786.07 Wheezing 10/02/2010 CARRILLO DO, ELLEN K 786.2 Cough 10/02/2010 ISH RAPIER INSERTION LOOM FIXER, GREGOR A 466.0 Bronchitis, Acute 10/02/2010 ISH RAPIER INSERTION LOOM FIXER, GREGOR A 786.07 Wheezing 10/02/2010 ISH RAPIER INSERTION LOOM FIXER, GREGOR A 786.2 Cough 10/02/2010 CARRILLO DO, ELLEN K 466.0 Bronchitis, Acute 10/02/2010 CARRILLO DO, ELLEN K 786.07 Wheezing 10/02/2010 CARRILLO DO, ELLEN K 786.2 Cough 10/02/2010 SHIRA RAPIER INSERTION LOOM FIXER, CHIVO R 466.0 Bronchitis, Acute 10/02/2010 SHIRA RAPIER INSERTION LOOM FIXER, CHIVO R 786.07 Wheezing 10/02/2010 SHIRA RAPIER INSERTION LOOM FIXER, CHIVO R 786.2 Cough 10/22/2010 465.9 UPPER RESPIRATORY INFECTION 10/22/2010 V87.31 CONTACT WITH AND (SUSPECTED) EXPOSURE TO MOLD 10/22/2010 CARRILLO DO, ELLEN K 465.9 Upper Respiratory Infection 10/22/2010 CARRILLO DO, ELLEN K V87.31 Contact With And (suspected) Exposure To Mold 10/22/2010 SHIRA YOON CHIVO R 465.9 Upper Respiratory Infection 10/22/2010 SHIRA HUMPHREYN CHIVO R V87.31 Contact With And (suspected) Exposure To Mold 10/22/2010 CARRILLO DO, ELLEN K 465.9 Upper Respiratory Infection 10/22/2010 CARRILLO DO, ELLEN K V87.31 Contact With And (suspected) Exposure To Mold 10/22/2010 CHAYA DENG APRNIDI A 465.9 Upper Respiratory Infection 10/22/2010 CHAYA DENG APRNIDI A V87.31 Contact With And (suspected) Exposure To Mold 10/22/2010 CARRILLO DO, ELLEN K 465.9 Upper Respiratory Infection 10/22/2010 CARRILLO DO, ELLEN K V87.31 Contact With And (suspected) Exposure To Mold 10/22/2010 SHIRA YOON CHIVO R 465.9 Upper Respiratory Infection 10/22/2010 SHIRA YOON, CHIVO R V87.31 Contact With And (suspected) Exposure To Mold 12/14/2010 Ot 461.9 ACUTE SINUSITIS NOS 12/14/2010 Ot 478.19 OTHER DISEASE OF NASAL CAVITY AND SINUSE 01/28/2011 783.1 WEIGHT GAIN ABNORMAL 01/28/2011 CARRILLO DO ELLEN K 783.1 Weight Gain Abnormal 01/28/2011 SHIRA YOON CHIVO R 783.1 Weight Gain Abnormal 01/28/2011 LORENA BUENROSTRO ELLEN K 783.1 Weight Gain Abnormal 01/28/2011 ISH RAPIER INSERTION LOOM FIXER, GREGOR A 783.1 Weight Gain Abnormal 01/28/2011 CARRILLO DO ELLEN K 783.1 Weight Gain Abnormal 01/28/2011 SHIRA YOON, CHIVO R 783.1 Weight Gain Abnormal 01/30/2011 V70.5 PREEMPLOYMENT/ PRESCHOOL EXAM 01/30/2011 V74.1 SCREENING EXAMINATION FOR PULMONARY TUBERCULOSIS 01/30/2011 CARRILLO DO ELLEN K V70.5 Preemployment/preschool Exam 01/30/2011 CARRILLO DO ELLEN K V74.1 Screening Examination For Pulmonary Tuberculosis 01/30/2011 SHIRA YOON CHIVO R V70.5 Preemployment/preschool Exam 01/30/2011 SHIRA YOON CHIVO R V74.1 Screening Examination For Pulmonary Tuberculosis 01/30/2011 CARRILLO DO ELLEN K V70.5 Preemployment/preschool Exam 01/30/2011 CARRILLO DO ELLEN K V74.1 Screening Examination For Pulmonary Tuberculosis 01/30/2011 CHAYA DENG APRNIDI A V70.5 Preemployment/preschool Exam 01/30/2011 ISH YOON GREGOR A V74.1 Screening Examination For Pulmonary Tuberculosis 01/30/2011 CARRILLO DO ELLEN K V70.5 Preemployment/preschool Exam 01/30/2011 CARRILLO DO ELLEN K V74.1 Screening Examination For Pulmonary Tuberculosis 01/30/2011 SHIRA YOON CHIVO R V70.5 Preemployment/preschool Exam 01/30/2011 SHIRA YOON CHIVO R V74.1 Screening Examination For Pulmonary Tuberculosis 02/25/2011 296.90 MOOD DISORDER 02/25/2011 461.9 SINUSITIS ACUTE 02/25/2011 CARRILLO DO ELLEN K 296.90 MOOD DISORDER 02/25/2011 CARRILLO DO, ELLEN K 461.9 Sinusitis Acute 02/25/2011 SHIRA YOON CHIVO R 296.90 MOOD DISORDER 02/25/2011 SHELDON SILVA APRNINA R 461.9 Sinusitis Acute 02/25/2011 CARRILLO DO ELLEN K 296.90 MOOD DISORDER 02/25/2011 CARRILLO DO ELLEN K 461.9 Sinusitis Acute 02/25/2011 CHAYA DENG APRNIDI A 296.90 MOOD DISORDER 02/25/2011 GREGOR DENG APRN A 461.9 Sinusitis Acute 02/25/2011 LORENA BUENROSTRO ELLEN K 296.90 MOOD DISORDER 02/25/2011 CARRILLO DO, ELLEN K 461.9 Sinusitis Acute 02/25/2011 CHIVO SILVA APRN R 296.90 MOOD DISORDER 02/25/2011 SHELDON SILVA APRNINA R 461.9 Sinusitis Acute 04/21/2011 788.1 DYSURIA 04/21/2011 CARRILLO DO, ELLEN K 788.1 Dysuria 04/21/2011 SHELDON SILVA APRNINA R 788.1 Dysuria 04/21/2011 CARRILLO DO, ELLEN K 788.1 Dysuria 04/21/2011 GREGOR DENG APRN A 788.1 Dysuria 04/21/2011 CARRILLO DO, ELLEN K 788.1 Dysuria 04/21/2011 SHELDON SILVA APRNINA R 788.1 Dysuria 05/12/2011 789.60 EPIGASTRIC PAIN 05/12/2011 CONCHITA CARRILLO DOA K 789.60 EPIGASTRIC PAIN 05/12/2011 SHELDON SILVA APRNINA R 789.60 EPIGASTRIC PAIN 05/12/2011 CARRILLO DO, ELLEN K 789.60 EPIGASTRIC PAIN 05/12/2011 GREGOR DENG APRN A 789.60 EPIGASTRIC PAIN 05/12/2011 CARRILLO DO, ELLEN K 789.60 EPIGASTRIC PAIN 05/12/2011 SHELDON SILVA APRNINA R 789.60 EPIGASTRIC PAIN 06/06/2011 Ot 786.50 [...] pain above the pubic area (suprapubic) 01/17/2013 ISH RAPIER INSERTION LOOM FIXER, GREGOR A 789.09 abdominal pain above the pubic area (suprapubic) 01/17/2013 CARRILLO DO, ELLEN K 789.09 abdominal pain above the pubic area (suprapubic) 01/17/2013 SHIRA RAPIER INSERTION LOOM FIXER, CHIVO R 789.09 abdominal pain above the pubic area (suprapubic) 01/08/2014 SHIRA YOON, CHIVO R 786.09 RESPIRATORY ABNORMALITY OTHER 01/08/2014 SHIRA RAPIER INSERTION LOOM FIXER, CHIVO R 786.2 COUGH 01/08/2014 CARRILLO DO, ELLEN K 786.09 RESPIRATORY ABNORMALITY OTHER 01/08/2014 CARRILLO DO, ELLEN K 786.2 COUGH 01/08/2014 ISH RAPIER INSERTION LOOM FIXER, GREGOR A 786.09 RESPIRATORY ABNORMALITY OTHER 01/08/2014 ISH RAPIER INSERTION LOOM FIXER, GREGOR A 786.2 COUGH 01/08/2014 CARRILLO DO, ELLEN K 786.09 RESPIRATORY ABNORMALITY OTHER 01/08/2014 CARRILLO DO, ELLEN K 786.2 COUGH 01/08/2014 SHIRA YOON, CHIVO R 786.09 RESPIRATORY ABNORMALITY OTHER 01/08/2014 SHIRA HUMPHREYN, CHIVO R 786.2 COUGH 01/23/2014 CARRILLO DO, ELLEN K 623.5 LEUKORRHEA NOT SPECIFIED INFECTIVE 01/23/2014 CARRILLO DO, ELLEN K 627.1 POSTMENOPAUSAL BLEEDING 01/23/2014 CARRILLO DO, ELLEN K 788.1 DYSURIA 01/23/2014 ISH YOON GREGOR A 623.5 LEUKORRHEA NOT SPECIFIED INFECTIVE 01/23/2014 ISH YOON GREGOR A 627.1 POSTMENOPAUSAL BLEEDING 01/23/2014 ISH RAPIER INSERTION LOOM FIXER, GREGOR A 788.1 DYSURIA 01/23/2014 CARRILLO DO ELLEN K 623.5 LEUKORRHEA NOT SPECIFIED INFECTIVE 01/23/2014 CARRILLO DO, ELLEN K 627.1 POSTMENOPAUSAL BLEEDING 01/23/2014 CARRILLO DO, ELELN K 788.1 DYSURIA 01/23/2014 SHIRA YOON CHIVO R 623.5 LEUKORRHEA NOT SPECIFIED INFECTIVE 01/23/2014 SHIRA YOON, CHIVO R 627.1 POSTMENOPAUSAL BLEEDING 01/23/2014 SHELDON SILVA APRNINA R 788.1 DYSURIA 01/25/2014 LORENA BUENROSTRO ELLEN K 487.1 INFLUENZA 01/25/2014 ISH RAPIER INSERTION LOOM FIXER, GREGOR A 487.1 INFLUENZA 01/25/2014 CARRILLO CONCHITA BUENROSTROA K 487.1 INFLUENZA 01/25/2014 SHIRA RAPIER INSERTION LOOM FIXER, CHIVO R 487.1 INFLUENZA 04/02/2014 ISH RAPIER INSERTION LOOM FIXER, GREGOR A 626.7 POSTCOITAL BLEEDING 04/02/2014 ISH RAPIER INSERTION LOOM FIXER, GREGOR A V74.5 STD SCREEN 04/02/2014 CARRILLO CONCHITA BUENROSTROA K 626.7 POSTCOITAL BLEEDING 04/02/2014 CARRILLO DO, ELLEN K V74.5 STD SCREEN 04/02/2014 SHIRA RAPIER INSERTION LOOM FIXER, CHIVO R 626.7 POSTCOITAL BLEEDING 04/02/2014 SHIRA RAPIER INSERTION LOOM FIXER, CHIVO R V74.5 STD SCREEN 10/17/2014 Ot V76.12 10/17/2014 Ot V72.84 10/17/2014 Ot V76.12 10/17/2014 ISH, GREGOR A RAPIER INSERTION LOOM FIXER Ot 626.7 10/17/2014 ISH, GREGOR A RAPIER INSERTION LOOM FIXER Ot 627.1 10/17/2014 ISH, GREGOR A RAPIER INSERTION LOOM FIXER Ot V74.5 10/17/2014 ISH, GREGOR A RAPIER INSERTION LOOM FIXER Ot 623.5 10/17/2014 ISH, GREGOR A RAPIER INSERTION LOOM FIXER Ot 627.1 10/17/2014 ISH, GREGOR A RAPIER INSERTION LOOM FIXER Ot 786.03 10/17/2014 ISH, GREGOR A RAPIER INSERTION LOOM FIXER Ot 786.2 10/17/2014 ISH, GREGOR A RAPIER INSERTION LOOM FIXER Ot 788.1 10/17/2014 ISH, GREGOR A RAPIER INSERTION LOOM FIXER Ot V76.12 10/17/2014 CHIVO SILVA R RAPIER INSERTION LOOM FIXER Ot 793.80 10/22/2014 SHIRA CHIVO R RAPIER INSERTION LOOM FIXER Ot 793.89 10/22/2014 Ot V76.12 10/22/2014 Ot V72.84 10/22/2014 Ot V76.12 10/22/2014 ISH, GREGOR A RAPIER INSERTION LOOM FIXER Ot 626.7 10/22/2014 ISH, GREGOR A RAPIER INSERTION LOOM FIXER Ot 627.1 10/22/2014 ISH, GREGOR A RAPIER INSERTION LOOM FIXER Ot V74.5 10/22/2014 ISH, GREGOR A RAPIER INSERTION LOOM FIXER Ot 623.5 10/22/2014 ISH, GREGOR A RAPIER INSERTION LOOM FIXER Ot 627.1 10/22/2014 ISH, GREGOR A RAPIER INSERTION LOOM FIXER Ot 786.03 10/22/2014 ISH, GREGOR A RAPIER INSERTION LOOM FIXER Ot 786.2 10/22/2014 ISH, GREGOR A RAPIER INSERTION LOOM FIXER Ot 788.1 10/22/2014 ISH, GREGOR A RAPIER INSERTION LOOM FIXER Ot V76.12 10/22/2014 CHIVO SILVA RAPIER INSERTION LOOM FIXER Ot 793.80 10/22/2014 CHIVO SILVA R RAPIER INSERTION LOOM FIXER Ot 793.89 03/04/2016 Ot V76.12 03/04/2016 Ot V72.84 03/04/2016 Ot V76.12 03/04/2016 ISH, GREGOR A RAPIER INSERTION LOOM FIXER Ot 626.7 03/04/2016 ISH, GREGOR A RAPIER INSERTION LOOM FIXER Ot 627.1 03/04/2016 ISH, GREGOR A RAPIER INSERTION LOOM FIXER Ot V74.5 03/04/2016 ISH, GREGOR A RAPIER INSERTION LOOM FIXER Ot 623.5 03/04/2016 ISH, GREGOR A RAPIER INSERTION LOOM FIXER Ot 627.1 03/04/2016 ISH, GREGOR A RAPIER INSERTION LOOM FIXER Ot 786.03 03/04/2016 ISH, GREGOR A RAPIER INSERTION LOOM FIXER Ot 786.2 03/04/2016 ISH, GREGOR A RAPIER INSERTION LOOM FIXER Ot 788.1 03/04/2016 ISH, GREGOR A RAPIER INSERTION LOOM FIXER Ot V76.12 03/04/2016 CHIVO SILVA RAPIER INSERTION LOOM FIXER Ot 793.80 03/04/2016 CHIVO SILVA R RAPIER INSERTION LOOM FIXER Ot 793.89 03/05/2016 NATALYA BERG Ot Z12.31 04/08/2016 Ot V76.12 OTH SCREEN MAMMO-MALIGN NEOPLASM OF AUDREY 04/08/2016 Ot V72.84 EXAM PRE- OPERATIVE NOS 04/08/2016 Ot V76.12 OTH SCREEN MAMMO-MALIGN NEOPLASM OF AUDREY 04/08/2016 ISH, GREGOR A RAPIER INSERTION LOOM FIXER Ot 626.7 POSTCOITAL BLEEDING 04/08/2016 ISH GREGOR A RAPIER INSERTION LOOM FIXER Ot 627.1 POSTMENOPAUSAL BLEEDING 04/08/2016 GREGOR DENG RAPIER INSERTION LOOM FIXER Ot V74.5 SCREEN FOR VENERAL DIS 04/08/2016 GREGOR DENG RAPIER INSERTION LOOM FIXER Ot 623.5 NONINFECT VAG LEUKORRHEA 04/08/2016 GREGOR DENG RAPIER INSERTION LOOM FIXER Ot 627.1 POSTMENOPAUSAL BLEEDING 04/08/2016 GREGOR DENG RAPIER INSERTION LOOM FIXER Ot 786.03 APNEA 04/08/2016 GREGOR DENG RAPIER INSERTION LOOM FIXER Ot 786.2 COUGH 04/08/2016 GREGOR DENG RAPIER INSERTION LOOM FIXER Ot 788.1 DYSURIA 04/08/2016 GREGOR DENG RAPIER INSERTION LOOM FIXER Ot V76.12 OTH SCREEN MAMMO-MALIGN NEOPLASM OF AUDREY 04/08/2016 CHIVO SILVA RAPIER INSERTION LOOM FIXER Ot 793.80 UNSPEC ABNORMAL MAMMOGRAM 04/08/2016 CHIVO SILVA RAPIER INSERTION LOOM FIXER Ot 793.89 OTH (ABN) FINDINGS ON RADIOLOGICAL EXAMI 04/08/2016 NATALYA BERG Ot Z12.31 ENCNTR SCREEN MAMMOGRAM FOR MALIGNANT NE 04/08/2016 NICOLE BLANCA Ot F17.210 NICOTINE DEPENDENCE, CIGARETTES, UNCOMPL 04/08/2016 NICOLE BLANCA Ot M10.9 GOUT, UNSPECIFIED 04/08/2016 Ot V76.12 OTH SCREEN MAMMO-MALIGN NEOPLASM OF AUDREY 04/08/2016 Ot V72.84 EXAM PRE- OPERATIVE NOS 04/08/2016 Ot V76.12 OTH SCREEN MAMMO-MALIGN NEOPLASM OF AUDREY 04/08/2016 GREGOR DENG RAPIER INSERTION LOOM FIXER Ot 626.7 POSTCOITAL BLEEDING 04/08/2016 GREGOR DENG RAPIER INSERTION LOOM FIXER Ot 627.1 POSTMENOPAUSAL BLEEDING 04/08/2016 GREGOR DENG APRN Ot V74.5 SCREEN FOR VENERAL DIS 04/08/2016 GREGOR DENG RAPIER INSERTION LOOM FIXER Ot 623.5 NONINFECT VAG LEUKORRHEA 04/08/2016 GREGOR DENG APRN Ot 627.1 POSTMENOPAUSAL BLEEDING 04/08/2016 GREGOR DENG RAPIER INSERTION LOOM FIXER Ot 786.03 APNEA 04/08/2016 GREGOR DENG RAPIER INSERTION LOOM FIXER Ot 786.2 COUGH 04/08/2016 GREGOR DENG RAPIER INSERTION LOOM FIXER Ot 788.1 DYSURIA 04/08/2016 GREGOR DENG RAPIER INSERTION LOOM FIXER Ot V76.12 OTH SCREEN MAMMO-MALIGN NEOPLASM OF AUDREY 04/08/2016 CHIVO SILVA RAPIER INSERTION LOOM FIXER Ot 793.80 UNSPEC ABNORMAL MAMMOGRAM 04/08/2016 CHIVO SILVA RAPIER INSERTION LOOM FIXER Ot 793.89 OTH (ABN) FINDINGS ON RADIOLOGICAL EXAMI 04/08/2016 NATALYA BERG DAVID Ot Z12.31 ENCNTR SCREEN MAMMOGRAM FOR MALIGNANT [...] MAMMO-MALIGN NEOPLASM OF AUDREY 05/18/2016 GREGOR DENG RAPIER INSERTION LOOM FIXER Ot 626.7 POSTCOITAL BLEEDING 05/18/2016 GREGOR DENG RAPIER INSERTION LOOM FIXER Ot 627.1 POSTMENOPAUSAL BLEEDING 05/18/2016 GREGOR DENG RAPIER INSERTION LOOM FIXER Ot V74.5 SCREEN FOR VENERAL DIS 05/18/2016 GREGOR DENG RAPIER INSERTION LOOM FIXER Ot 623.5 NONINFECT VAG LEUKORRHEA 05/18/2016 GREGOR DENG RAPIER INSERTION LOOM FIXER Ot 627.1 POSTMENOPAUSAL BLEEDING 05/18/2016 GREGOR DENG RAPIER INSERTION LOOM FIXER Ot 786.03 APNEA 05/18/2016 GREGOR DENG RAPIER INSERTION LOOM FIXER Ot 786.2 COUGH 05/18/2016 ISH, GREGOR A RAPIER INSERTION LOOM FIXER Ot 788.1 DYSURIA 05/18/2016 CHAYA DENGIDI A RAPIER INSERTION LOOM FIXER Ot V76.12 OTH SCREEN MAMMO-MALIGN NEOPLASM OF AUDREY 05/18/2016 CHIVO SILVA RAPIER INSERTION LOOM FIXER Ot 793.80 UNSPEC ABNORMAL MAMMOGRAM 05/18/2016 CHIVO SILVA RAPIER INSERTION LOOM FIXER Ot 793.89 OTH (ABN) FINDINGS ON RADIOLOGICAL EXAMI 05/18/2016 NATALYA BERG SKILLED HELPER Ot Z12.31 ENCNTR SCREEN MAMMOGRAM FOR MALIGNANT NE 05/18/2016 GREGOR DENG A RAPIER INSERTION LOOM FIXER Ot 626.7 POSTCOITAL BLEEDING 05/18/2016 GREGOR DENG A RAPIER INSERTION LOOM FIXER Ot 627.1 POSTMENOPAUSAL BLEEDING 05/18/2016 GREGOR DENG A RAPIER INSERTION LOOM FIXER Ot V74.5 SCREEN FOR VENERAL DIS 05/18/2016 NATALYA BERG SKILLED HELPER Ot Z12.31 ENCNTR SCREEN MAMMOGRAM FOR MALIGNANT NE 09/14/2016 Ot V76.12 OTH SCREEN MAMMO-MALIGN NEOPLASM OF AUDREY 09/14/2016 Ot V72.84 EXAM PRE- OPERATIVE NOS 09/14/2016 Ot V76.12 OTH SCREEN MAMMO-MALIGN NEOPLASM OF AUDREY 09/14/2016 CHAYA DENGIDI A RAPIER INSERTION LOOM FIXER Ot 626.7 POSTCOITAL BLEEDING 09/14/2016 CHAYA DENGIDI A RAPIER INSERTION LOOM FIXER Ot 627.1 POSTMENOPAUSAL BLEEDING 09/14/2016 GREGOR DENG A RAPIER INSERTION LOOM FIXER Ot V74.5 SCREEN FOR VENERAL DIS 09/14/2016 CHAYA DENGIDI A RAPIER INSERTION LOOM FIXER Ot 623.5 NONINFECT VAG LEUKORRHEA 09/14/2016 CHAYA DENGIDI A RAPIER INSERTION LOOM FIXER Ot 627.1 POSTMENOPAUSAL BLEEDING 09/14/2016 ISH GREGOR A RAPIER INSERTION LOOM FIXER Ot 786.03 APNEA 09/14/2016 CHAYA DENGIDI A RAPIER INSERTION LOOM FIXER Ot 786.2 COUGH 09/14/2016 CHAYA DENGIDI A RAPIER INSERTION LOOM FIXER Ot 788.1 DYSURIA 09/14/2016 GREGOR DENG A RAPIER INSERTION LOOM FIXER Ot V76.12 OTH SCREEN MAMMO-MALIGN NEOPLASM OF AUDREY 09/14/2016 CHIVO SILVA RAPIER INSERTION LOOM FIXER Ot 793.80 UNSPEC ABNORMAL MAMMOGRAM 09/14/2016 CHIVO SILVA RAPIER INSERTION LOOM FIXER Ot 793.89 OTH (ABN) FINDINGS ON RADIOLOGICAL EXAMI 09/14/2016 NATALYA BERG SKILLED HELPER Ot Z12.31 ENCNTR SCREEN MAMMOGRAM FOR MALIGNANT NE 09/15/2016 NATALYA BERG SKILLED HELPER Ot R92.8 OTH ABN AND INCONCLUSIVE FINDINGS ON DX 04/12/2017 Ot V72.84 EXAM PRE- OPERATIVE NOS 04/12/2017 Ot V76.12 OTH SCREEN MAMMO-MALIGN NEOPLASM OF AUDREY 04/12/2017 ISH, GREGOR A RAPIER INSERTION LOOM FIXER Ot 626.7 POSTCOITAL BLEEDING 04/12/2017 ISH, GREGOR A RAPIER INSERTION LOOM FIXER Ot 627.1 POSTMENOPAUSAL BLEEDING 04/12/2017 ISH GREGOR A RAPIER INSERTION LOOM FIXER Ot V74.5 SCREEN FOR VENERAL DIS 04/12/2017 ISH GREGOR A RAPIER INSERTION LOOM FIXER Ot 623.5 NONINFECT VAG LEUKORRHEA 04/12/2017 ISH, GREGOR A RAPIER INSERTION LOOM FIXER Ot 627.1 POSTMENOPAUSAL BLEEDING 04/12/2017 ISH GREGOR A RAPIER INSERTION LOOM FIXER Ot 786.03 APNEA 04/12/2017 ISH GREGOR A RAPIER INSERTION LOOM FIXER Ot 786.2 COUGH 04/12/2017 ISH GREGOR A RAPIER INSERTION LOOM FIXER Ot 788.1 DYSURIA 04/12/2017 ISH GREGOR A RAPIER INSERTION LOOM FIXER Ot V76.12 OTH SCREEN MAMMO-MALIGN NEOPLASM OF AUDREY 04/12/2017 CHIVO SILVA RAPIER INSERTION LOOM FIXER Ot 793.80 UNSPEC ABNORMAL MAMMOGRAM 04/12/2017 CHIVO SILVA RAPIER INSERTION LOOM FIXER Ot 793.89 OTH (ABN) FINDINGS ON RADIOLOGICAL EXAMI 04/12/2017 NATALYA BERG SKILLED HELPER Ot Z12.31 ENCNTR SCREEN MAMMOGRAM FOR MALIGNANT NE 04/12/2017 NATALYA BERG SKILLED HELPER Ot R92.8 OTH ABN AND INCONCLUSIVE FINDINGS ON DX 04/16/2017 Ot V72.84 EXAM PRE- OPERATIVE NOS 04/16/2017 Ot V76.12 OTH SCREEN MAMMO-MALIGN NEOPLASM OF AUDREY 04/16/2017 ISH GREGOR A RAPIER INSERTION LOOM FIXER Ot 626.7 POSTCOITAL BLEEDING 04/16/2017 ISH GREGOR A RAPIER INSERTION LOOM FIXER Ot 627.1 POSTMENOPAUSAL BLEEDING 04/16/2017 GREGOR DENG RAPIER INSERTION LOOM FIXER Ot V74.5 SCREEN FOR VENERAL DIS 04/16/2017 GREGOR DENG RAPIER INSERTION LOOM FIXER Ot 623.5 NONINFECT VAG LEUKORRHEA 04/16/2017 GREGOR DENG RAPIER INSERTION LOOM FIXER Ot 627.1 POSTMENOPAUSAL BLEEDING 04/16/2017 GREGOR DENG RAPIER INSERTION LOOM FIXER Ot 786.03 APNEA 04/16/2017 GREGOR DENG RAPIER INSERTION LOOM FIXER Ot 786.2 COUGH 04/16/2017 GREGOR DENG RAPIER INSERTION LOOM FIXER Ot 788.1 DYSURIA 04/16/2017 GREGOR DENG RAPIER INSERTION LOOM FIXER Ot V76.12 OTH SCREEN MAMMO-MALIGN NEOPLASM OF AUDREY 04/16/2017 CHIVO SILVA RAPIER INSERTION LOOM FIXER Ot 793.80 UNSPEC ABNORMAL MAMMOGRAM 04/16/2017 CHIVO SILVA RAPIER INSERTION LOOM FIXER Ot 793.89 OTH (ABN) FINDINGS ON RADIOLOGICAL EXAMI 04/16/2017 NATALYA BERG SKILLED HELPER Ot Z12.31 ENCNTR SCREEN MAMMOGRAM FOR MALIGNANT NE 04/16/2017 NATALYA BERG SKILLED HELPER Ot R92.8 OTH ABN AND INCONCLUSIVE FINDINGS ON DX 04/19/2017 Ot V72.84 EXAM PRE- OPERATIVE NOS 04/19/2017 Ot V76.12 OTH SCREEN MAMMO-MALIGN NEOPLASM OF AUDREY 04/19/2017 GREGOR DEGN RAPIER INSERTION LOOM FIXER Ot 626.7 POSTCOITAL BLEEDING 04/19/2017 GREGOR DENG RAPIER INSERTION LOOM FIXER Ot 627.1 POSTMENOPAUSAL BLEEDING 04/19/2017 GREGOR DENG RAPIER INSERTION LOOM FIXER Ot V74.5 SCREEN FOR VENERAL DIS 04/19/2017 GREGOR DENG RAPIER INSERTION LOOM FIXER Ot 623.5 NONINFECT VAG LEUKORRHEA 04/19/2017 GREGOR DENG RAPIER INSERTION LOOM FIXER Ot 627.1 POSTMENOPAUSAL BLEEDING 04/19/2017 GREGOR DENG RAPIER INSERTION LOOM FIXER Ot 786.03 APNEA 04/19/2017 GREGOR DENG RAPIER INSERTION LOOM FIXER Ot 786.2 COUGH 04/19/2017 GREGOR DENG RAPIER INSERTION LOOM FIXER Ot 788.1 DYSURIA 04/19/2017 GREGOR DENG RAPIER INSERTION LOOM FIXER Ot V76.12 OTH SCREEN MAMMO-MALIGN NEOPLASM OF AUDREY 04/19/2017 CHIVO SILVA RAPIER INSERTION LOOM FIXER Ot 793.80 UNSPEC ABNORMAL MAMMOGRAM 04/19/2017 CHIVO SILVA RAPIER INSERTION LOOM FIXER Ot 793.89 OTH (ABN) FINDINGS ON RADIOLOGICAL EXAMI 04/19/2017 NATALYA BERG Jo-Ann SKILLED HELPER Ot Z12.31 ENCNTR SCREEN MAMMOGRAM FOR MALIGNANT NE 04/19/2017 NATALYA BERG Jo-Ann SKILLED HELPER Ot R92.8 OTH ABN AND INCONCLUSIVE FINDINGS ON DX 04/25/2017 MARIELA BERGMONA Busch SKILLED HELPER Ot N60.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 04/29/2017 Ot V72.84 EXAM PRE- OPERATIVE NOS 04/29/2017 Ot V76.12 OTH SCREEN MAMMO-MALIGN NEOPLASM OF AUDREY 04/29/2017 GREGOR DENG RAPIER INSERTION LOOM FIXER Ot 626.7 POSTCOITAL BLEEDING 04/29/2017 GREGOR DENG A RAPIER INSERTION LOOM FIXER Ot 627.1 POSTMENOPAUSAL BLEEDING 04/29/2017 GREGOR DENG RAPIER INSERTION LOOM FIXER Ot V74.5 SCREEN FOR VENERAL DIS 04/29/2017 [facility], GREGOR A RAPIER INSERTION LOOM FIXER Ot 623.5 NONINFECT VAG LEUKORRHEA 04/29/2017 [facility], GREGOR A RAPIER INSERTION LOOM FIXER Ot 627.1 POSTMENOPAUSAL BLEEDING 04/29/2017 [facility] GREGOR A RAPIER INSERTION LOOM FIXER Ot 786.03 APNEA 04/29/2017 [facility], GREGOR A RAPIER INSERTION LOOM FIXER Ot 786.2 COUGH 04/29/2017 [facility], GREGOR A RAPIER INSERTION LOOM FIXER Ot 788.1 DYSURIA 04/29/2017 CHAYA DENGIDI A RAPIER INSERTION LOOM FIXER Ot V76.12 OTH SCREEN MAMMO-MALIGN NEOPLASM OF AUDREY 04/29/2017 CHIVO SILVA RAPIER INSERTION LOOM FIXER Ot 793.80 UNSPEC ABNORMAL MAMMOGRAM 04/29/2017 CHIVO SILVA RAPIER INSERTION LOOM FIXER Ot 793.89 OTH (ABN) FINDINGS ON RADIOLOGICAL EXAMI 04/29/2017 OTIS NATALYA A SKILLED HELPER Ot Z12.31 ENCNTR SCREEN MAMMOGRAM FOR MALIGNANT NE 04/29/2017 OTIS NATALYA A SKILLED HELPER Ot R92.8 OTH ABN AND INCONCLUSIVE FINDINGS ON DX 04/29/2017 BERGNATALYA SKILLED HELPER Ot N60.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 12/26/2017 Ot V76.12 OTH SCREEN MAMMO-MALIGN NEOPLASM OF AUDREY 12/26/2017 [facility], GREGOR A RAPIER INSERTION LOOM FIXER Ot 626.7 POSTCOITAL BLEEDING 12/26/2017 ISHCHAYAGREGOR A RAPIER INSERTION LOOM FIXER Ot 627.1 POSTMENOPAUSAL BLEEDING 12/26/2017 ISHCHAYAGREGOR A RAPIER INSERTION LOOM FIXER Ot V74.5 SCREEN FOR VENERAL DIS 12/26/2017 ISH GREGOR A RAPIER INSERTION LOOM FIXER Ot 623.5 NONINFECT VAG LEUKORRHEA 12/26/2017 ISH GREGOR A RAPIER INSERTION LOOM FIXER Ot 627.1 POSTMENOPAUSAL BLEEDING 12/26/2017 ISH GREGOR A RAPIER INSERTION LOOM FIXER Ot 786.03 APNEA 12/26/2017 ISH, GREGOR A RAPIER INSERTION LOOM FIXER Ot 786.2 COUGH 12/26/2017 ISH, GREGOR A RAPIER INSERTION LOOM FIXER Ot 788.1 DYSURIA 12/26/2017 ISHCHAYAGREGOR A RAPIER INSERTION LOOM FIXER Ot V76.12 OTH SCREEN MAMMO-MALIGN NEOPLASM OF AUDREY 12/26/2017 CHIVO SILVA RAPIER INSERTION LOOM FIXER Ot 793.80 UNSPEC ABNORMAL MAMMOGRAM 12/26/2017 CHIVO SILVA RAPIER INSERTION LOOM FIXER Ot 793.89 OTH (ABN) FINDINGS ON RADIOLOGICAL EXAMI 12/26/2017 NATALYA BERG SKILLED HELPER Ot Z12.31 ENCNTR SCREEN MAMMOGRAM FOR MALIGNANT NE 12/26/2017 NATALYA BERG SKILLED HELPER Ot R92.8 OTH ABN AND INCONCLUSIVE FINDINGS ON DX 12/26/2017 NATALYA BERG SKILLED HELPER Ot N60.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 12/26/2017 PAUL CORONA MD Ot R06.00 DYSPNEA, UNSPECIFIED 12/26/2017 Ot V76.12 OTH SCREEN MAMMO-MALIGN NEOPLASM OF AUDREY 12/26/2017 ISHCHAYAGREGOR A RAPIER INSERTION LOOM FIXER Ot 626.7 POSTCOITAL BLEEDING 12/26/2017 IS[facility], GREGOR A RAPIER INSERTION LOOM FIXER Ot 627.1 POSTMENOPAUSAL BLEEDING 12/26/2017 IS[facility], GREGOR A RAPIER INSERTION LOOM FIXER Ot V74.5 SCREEN FOR VENERAL DIS 12/26/2017 IS[facility] GREGOR A RAPIER INSERTION LOOM FIXER Ot 623.5 NONINFECT VAG LEUKORRHEA 12/26/2017 IS[facility], GREGOR A RAPIER INSERTION LOOM FIXER Ot 627.1 POSTMENOPAUSAL BLEEDING 12/26/2017 GREGOR DENG A RAPIER INSERTION LOOM FIXER Ot 786.03 APNEA 12/26/2017 GREGOR DENG A RAPIER INSERTION LOOM FIXER Ot 786.2 COUGH 12/26/2017 GREGOR DENG RAPIER INSERTION LOOM FIXER Ot 788.1 DYSURIA 12/26/2017 GREGOR DENG APRN Ot V76.12 OTH SCREEN MAMMO-MALIGN NEOPLASM OF AUDREY 12/26/2017 CHIVO SILVA RAPIER INSERTION LOOM FIXER Ot 793.80 UNSPEC ABNORMAL MAMMOGRAM 12/26/2017 CHIVO SILVA RAPIER INSERTION LOOM FIXER Ot 793.89 OTH (ABN) FINDINGS ON RADIOLOGICAL EXAMI 12/26/2017 NATALYA BERG SKILLED HELPER Ot Z12.31 ENCNTR SCREEN MAMMOGRAM FOR MALIGNANT NE 12/26/2017 NATALYA BERGP Ot R92.8 OTH ABN AND INCONCLUSIVE FINDINGS ON DX 12/26/2017 NATALYA BERG SKILLED HELPER Ot N60.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 12/28/2017 CJ TOVAR, PAUL Leo Ot R06.00 DYSPNEA, UNSPECIFIED 03/23/2018 WINSOME HOWE RAPIER INSERTION LOOM FIXER Ot Z12.31 ENCNTR SCREEN MAMMOGRAM FOR MALIGNANT NE 08/17/2018 WINSOME HOWE RAPIER INSERTION LOOM FIXER Ot M51.17 INTVRT DISC DISORDERS W RADICULOPATHY, L 08/17/2018 WINSOME HOWE RAPIER INSERTION LOOM FIXER Ot M99.87 OTHER BIOMECHANICAL LESIONS OF UPPER EXT 2018 WINSOME HOWE RAPIER INSERTION LOOM FIXER Ot M54.2 CERVICALGIA 2018 GREGOR DENG RAPIER INSERTION LOOM FIXER Ot 626.7 POSTCOITAL BLEEDING 2018 GREGOR DENG A RAPIER INSERTION LOOM FIXER Ot 627.1 POSTMENOPAUSAL BLEEDING 2018 GREGOR DENG RAPIER INSERTION LOOM FIXER Ot V74.5 SCREEN FOR VENERAL DIS 2018 GREGOR DENG A RAPIER INSERTION LOOM FIXER Ot 623.5 NONINFECT VAG LEUKORRHEA 2018 GREGOR DENG A RAPIER INSERTION LOOM FIXER Ot 627.1 POSTMENOPAUSAL BLEEDING 2018 GREGOR DENG A RAPIER INSERTION LOOM FIXER Ot 786.03 APNEA 2018 GREGOR DENG A RAPIER INSERTION LOOM FIXER Ot 786.2 COUGH 2018 GREGOR DENG A RAPIER INSERTION LOOM FIXER Ot 788.1 DYSURIA 2018 ISHGREGOR WILKERSON RAPIER INSERTION LOOM FIXER Ot V76.12 OTH SCREEN MAMMO-MALIGN NEOPLASM OF AUDREY 2018 CHIVO SILVA RAPIER INSERTION LOOM FIXER Ot 793.80 UNSPEC ABNORMAL MAMMOGRAM 2018 CHIVO SILVA RAPIER INSERTION LOOM FIXER Ot 793.89 OTH (ABN) FINDINGS ON RADIOLOGICAL EXAMI 2018 NATALYA BERG SKILLED HELPER Ot Z12.31 ENCNTR SCREEN MAMMOGRAM FOR MALIGNANT NE 2018 NATALYA BERG SKILLED HELPER Ot R92.8 OTH ABN AND INCONCLUSIVE FINDINGS ON DX 2018 NATALYA BERG SKILLED HELPER Ot N60.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 2018 WINSOME HOWE RAPIER INSERTION LOOM FIXER Ot M51.17 INTVRT DISC DISORDERS W RADICULOPATHY, L 2018 WINSOME HOWE RAPIER INSERTION LOOM FIXER Ot M99.87 OTHER BIOMECHANICAL LESIONS OF UPPER EXT 2018 WINSOME HOWE RAPIER INSERTION LOOM FIXER Ot Z12.31 ENCNTR SCREEN MAMMOGRAM FOR MALIGNANT NE 2018 WINSOME HOWE RAPIER INSERTION LOOM FIXER Ot M54.2 CERVICALGIA 08/26/2018 WINSOME HOWE RAPIER INSERTION LOOM FIXER Ot M54.2 CERVICALGIA 12/29/2018 MILLY BENOIT MD Ot E78.00 PURE HYPERCHOLESTEROLEMIA, UNSPECIFIED 12/29/2018 MILLY BENOIT MD Ot I25.2 OLD MYOCARDIAL INFARCTION 12/29/2018 MILLY BENOIT MD Ot K21.9 GASTRO-ESOPHAGEAL REFLUX DISEASE WITHOUT 12/29/2018 MILLY BENOIT MD Ot R07.9 CHEST PAIN, UNSPECIFIED 12/29/2018 MILLY BENOIT MD Ot Z82.49 FAMILY HX OF ISCHEM HEART DIS AND OTH DI 12/29/2018 MILLY BENOIT MD Ot Z87.891 PERSONAL HISTORY OF NICOTINE DEPENDENCE 12/29/2018 MILLY BENOIT MD Ot Z90.89 ACQUIRED ABSENCE OF OTHER ORGANS 12/29/2018 MILLY BENOIT MD Ot Z91.14 PATIENT'S OTHER NONCOMPLIANCE WITH MEDIC 01/02/2019 MILLY BENOIT MD Ot E78.00 PURE HYPERCHOLESTEROLEMIA, UNSPECIFIED 01/02/2019 MILLY BENOIT MD Ot I25.2 OLD MYOCARDIAL INFARCTION 01/02/2019 MILLY BENOIT MD Ot K21.9 GASTRO-ESOPHAGEAL REFLUX DISEASE WITHOUT 01/02/2019 MILLY BENOIT MD Ot R07.9 CHEST PAIN, UNSPECIFIED 01/02/2019 MILLY BENOIT MD Ot Z82.49 FAMILY HX OF ISCHEM HEART DIS AND OTH DI 01/02/2019 MILLY BENOIT MD Ot Z87.891 PERSONAL HISTORY OF NICOTINE DEPENDENCE 01/02/2019 MILLY BENOIT MD Ot Z90.89 ACQUIRED ABSENCE OF OTHER ORGANS 01/02/2019 MILLY BENOIT MD Ot Z91.14 PATIENT'S OTHER NONCOMPLIANCE WITH MEDIC 01/03/2019 ISHGREGOR Paz RAPIER INSERTION LOOM FIXER Ot 626.7 POSTCOITAL BLEEDING 01/03/2019 ISHGREGOR Paz A RAPIER INSERTION LOOM FIXER Ot 627.1 POSTMENOPAUSAL BLEEDING 01/03/2019 GREGOR DENG A RAPIER INSERTION LOOM FIXER Ot V74.5 SCREEN FOR VENERAL DIS 01/03/2019 ISH, GREGOR A RAPIER INSERTION LOOM FIXER Ot 623.5 NONINFECT VAG LEUKORRHEA 01/03/2019 ISH, GREGOR A RAPIER INSERTION LOOM FIXER Ot 627.1 POSTMENOPAUSAL BLEEDING 01/03/2019 ISH, GREGOR A RAPIER INSERTION LOOM FIXER Ot 786.03 APNEA 01/03/2019 ISH, GREGOR A RAPIER INSERTION LOOM FIXER Ot 786.2 COUGH 01/03/2019 ISH, GREGOR A RAPIER INSERTION LOOM FIXER Ot 788.1 DYSURIA 01/03/2019 CHAYA DENGIDI A RAPIER INSERTION LOOM FIXER Ot V76.12 OTH SCREEN MAMMO-MALIGN NEOPLASM OF AUDREY 01/03/2019 CHIVO SILVA RAPIER INSERTION LOOM FIXER Ot 793.80 UNSPEC ABNORMAL MAMMOGRAM 01/03/2019 CHIVO SILVA RAPIER INSERTION LOOM FIXER Ot 793.89 OTH (ABN) FINDINGS ON RADIOLOGICAL EXAMI 01/03/2019 NATALYA BERGP Ot Z12.31 ENCNTR SCREEN MAMMOGRAM FOR MALIGNANT NE 01/03/2019 NATALYA BERG Ot R92.8 OTH ABN AND INCONCLUSIVE FINDINGS ON DX 01/03/2019 NATALYA BERG SKILLED HELPER Ot N60.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 01/03/2019 WISNOME HOWE APRN Ot M51.17 INTVRT DISC DISORDERS W RADICULOPATHY, L 01/03/2019 WINSOME HOWE APRN Ot M99.87 OTHER BIOMECHANICAL LESIONS OF UPPER EXT 01/03/2019 WINSOME HOWE APRN Ot Z12.31 ENCNTR SCREEN MAMMOGRAM FOR MALIGNANT NE Procedures Code [place] [address] UA W/ CULTURE IF INDICATED 01/17/2013 KAYLYN CARL CELINA 01/17/2013 49917 ROUTINE VENIPUNCTURE 01/09/2014 88744 LIPID PANEL 01/09/2014 83028 CBC 01/09/2014 5046093 GFR CALC (RESULT ONLY) 01/09/2014 74714 CMP 01/09/2014 00512 TSH 01/09/2014 94581 MYCOPLASMA ANTIBODY 01/10/2014 65600 INFLUENZA A & B (IN-HOUSE) 01/23/2014 65516 UA LONG DIP 01/23/2014 23620 HEMOCCULT 01/23/2014 92765 INFLUENZA A & B (IN-HOUSE) 01/25/2014 26639 MAMMOGRAM, SCREENING 01/26/2014 69831 PAP SMEAR 01/26/2014 25582 CULTURE UROGENITAL 01/27/2014 94226 OXIMETRY 01/28/2014 Q0091 PAP SMEAR OBTAIN SMEAR 01/29/2014 77259 TRICHOMONAS (IN-HOUSE) 04/02/2014 04067 US PELVIC COMPL (REFLEX CPT - 68663) 04/03/2014 42717 MAMMOGRAM DX, LEFT 04/03/2014 09868 GC/CHLAM PROBE (STATE) 04/03/2014 96015 US BREAST ULTRASOUND, LEFT 04/17/2014 94464 XRAY CHEST 2 VIEW 09/21/2014 24869 MAMMOGRAM DX, LEFT 09/21/2014 Results Test Result Range Genital Culture, Routine - 03/26/17 00:00 Genital Culture, Routine Note Please note - 03/26/17 00:00 Please note Comment Pap Lb, rfx HPV ASCU - 03/26/17 00:00 DIAGNOSIS: Comment Specimen adequacy: Comment Clinician provided ICD10: Comment Performed by: Comment . . Note: Comment . Comment CBC With Differential/Platelet - 09/16/17 09:37 WBC 7.0 x10E3/uL 3.4-10.8 RBC 4.25 x10E6/uL 3.77-5.28 Hemoglobin 13.5 g/dL 11.1-15.9 Hematocrit 40.5 % 34.0-46.6 MCV 95 fL 79-97 MCH 31.8 pg 26.6-33.0 MCHC 33.3 g/dL 31.5-35.7 RDW 13.2 % 12.3-15.4 Platelets 313 x10E3/uL 150-379 Neutrophils 62 % Not Estab. Lymphs 31 % Not Estab. Monocytes 6 % Not Estab. Eos 1 % Not Estab. Basos 0 % Not Estab. Neutrophils (Absolute) 4.3 x10E3/uL 1.4-7.0 Lymphs (Absolute) 2.2 x10E3/uL 0.7-3.1 Monocytes(Absolute) 0.4 x10E3/uL 0.1-0.9 Eos (Absolute) 0.1 x10E3/uL 0.0-0.4 Baso (Absolute) 0.0 x10E3/uL 0.0-0.2 Immature Granulocytes 0 % Not Estab. Immature Grans (Abs) 0.0 x10E3/uL 0.0-0.1 Comp. Metabolic Panel (14) - 09/16/17 09:37 Glucose, Serum 93 mg/dL 65-99 BUN 13 mg/dL 6-24 Creatinine, Serum 0.73 mg/dL 0.57-1.00 eGFR If NonAfricn Am 97 mL/min/1.73 >59 eGFR If Africn Am 112 mL/min/1.73 >59 BUN/Creatinine Ratio 18 9-23 Sodium, Serum 142 mmol/L 134-144 Potassium, Serum 4.4 mmol/L 3.5-5.2 Chloride, Serum 101 mmol/L 96-106 Carbon Dioxide, Total 26 mmol/L 18-29 Calcium, Serum 9.0 mg/dL 8.7-10.2 Protein, Total, Serum 6.5 g/dL 6.0-8.5 Albumin, Serum 4.4 g/dL 3.5-5.5 Globulin, Total 2.1 g/dL 1.5-4.5 A/G Ratio 2.1 1.2-2.2 Bilirubin, Total <0.2 mg/dL 0.0-1.2 Alkaline Phosphatase, S 87 IU/L 39-117 AST (SGOT) 17 IU/L 0-40 ALT (SGPT) 14 IU/L 0-32 Lipid Panel - 09/16/17 09:37 Cholesterol, Total 190 mg/dL 100-199 Triglycerides 59 mg/dL 0-149 HDL Cholesterol 46 mg/dL >39 VLDL Cholesterol [place] 12 mg/dL 5-40 LDL Cholesterol Calc 132 mg/dL 0-99 Hemoglobin A1c - 09/16/17 09:37 Hemoglobin A1c 5.4 % 4.8-5.6 Thyroid [place] Profile - 09/16/17 09:37 TSH 2.040 uIU/mL 0.450-4.500 CMP - 09/16/17 09:37 Glucose, Serum 93 mg/dL 65-99 BUN 13 mg/dL 6-24 Creatinine, Serum 0.73 mg/dL 0.57-1.00 eGFR If NonAfricn Am 97 mL/min/1.73 >59 eGFR If Africn Am 112 mL/min/1.73 >59 BUN/Creatinine Ratio 18 9-23 Sodium, Serum 142 mmol/L 134-144 Potassium, Serum 4.4 mmol/L 3.5-5.2 Chloride, Serum 101 mmol/L 96-106 Carbon Dioxide, Total 26 mmol/L 18-29 Calcium, Serum 9.0 mg/dL 8.7-10.2 Protein, Total, Serum 6.5 g/dL 6.0-8.5 Albumin, Serum 4.4 g/dL 3.5-5.5 Globulin, Total 2.1 g/dL 1.5-4.5 A/G Ratio 2.1 1.2-2.2 Bilirubin, Total <0.2 mg/dL 0.0-1.2 Alkaline Phosphatase, S 87 IU/L 39-117 AST (SGOT) 17 IU/L 0-40 ALT (SGPT) 14 IU/L 0-32 A1C - 09/16/17 09:37 Hemoglobin A1c 5.4 % 4.8-5.6 Complete blood count (CBC) with automated white blood cell (WBC) differential - 12/29/18 18:44 Blood leukocytes automated count (number/volume) 6.1 10*3/uL 4.3-11.0 Blood erythrocytes automated count (number/volume) 4.41 10*6/uL 4.35-5.85 Venous blood hemoglobin measurement (mass/volume) 13.3 g/dL 11.5-16.0 Blood hematocrit (volume fraction) 41 % 35-52 Automated erythrocyte mean corpuscular volume 92 [foz_us] 80-99 Automated erythrocyte mean corpuscular hemoglobin (mass per erythrocyte) 30 pg 25-34 Automated erythrocyte mean corpuscular hemoglobin concentration measurement ( mass/volume) 33 g/dL 32-36 Automated erythrocyte distribution width ratio 12.8 % 10.0-14.5 Automated blood platelet count (count/volume) 301 10*3/uL 130-400 Automated blood platelet mean volume measurement 9.0 [foz_us] 7.4-10.4 Automated blood neutrophils/100 leukocytes 53 % 42-75 Automated blood lymphocytes/100 leukocytes 37 % 12-44 Blood monocytes/100 leukocytes 9 % 0-12 Automated blood eosinophils/100 leukocytes 1 % 0-10 Automated blood basophils/100 leukocytes 0 % 0-10 Blood neutrophils automated count (number/volume) 3.2 10*3 1.8-7.8 Blood lymphocytes automated count (number/volume) 2.3 10*3 1.0-4.0 Blood monocytes automated count (number/volume) 0.5 10*3 0.0-1.0 Automated eosinophil count 0.1 10*3/uL 0.0-0.3 Automated blood basophil count (count/volume) 0.0 10*3/uL 0.0-0.1 PT panel in platelet poor plasma by coagulation assay - 12/29/18 18:44 Prothrombin time (PT) in platelet poor plasma by coagulation assay 13.2 s 12.2-14.7 INR in platelet poor plasma or blood by coagulation assay 1.0 0.8-1.4 Activated partial thromboplastin time (aPTT) in platelet poor plasma bycoagulation assay - 12/29/18 18:44 Activated partial thromboplastin time (aPTT) in platelet poor plasma bycoagulation assay 26 s 24-35 Comprehensive metabolic panel - 12/29/18 18:44 Serum or plasma sodium measurement (moles/volume) 139 mmol/L 135-145 Serum or plasma potassium measurement (moles/volume) 3.9 mmol/L 3.6-5.0 Serum or plasma chloride measurement (moles/volume) 104 mmol/L 98-107 Carbon dioxide 23 mmol/L 21-32 Serum or plasma anion gap determination (moles/volume) 12 mmol/L 5-14 Serum or plasma urea nitrogen measurement (mass/volume) 16 mg/dL 7-18 Serum or plasma creatinine measurement (mass/volume) 1.00 mg/dL 0.60-1.30 Serum or plasma urea nitrogen/creatinine mass ratio 16 NRG Serum or plasma creatinine measurement with calculation of estimated glomerular filtration rate 59 NRG Serum or plasma glucose measurement (mass/volume) 113 mg/dL 70-105 Serum or plasma calcium measurement (mass/volume) 9.6 mg/dL 8.5-10.1 Serum or plasma total bilirubin measurement (mass/volume) 0.2 mg/dL 0.1-1.0 Serum or plasma alkaline phosphatase measurement (enzymatic activity/volume) 87 U/L 40-136 Serum or plasma aspartate aminotransferase measurement (enzymatic activity/ volume) 24 U/L 5-34 Serum or plasma alanine aminotransferase measurement (enzymatic activity/volume ) 26 U/L 0-55 Serum or plasma protein measurement (mass/volume) 7.7 g/dL 6.4-8.2 Serum or plasma albumin measurement (mass/volume) 4.4 g/dL 3.2-4.5 CALCIUM CORRECTED 9.3 mg/dL 8.5-10.1 Magnesium - 12/29/18 18:44 Magnesium 2.2 mg/dL 1.8-2.4 Serum or plasma troponin i.cardiac measurement (mass/volume) - 12/29/18 18:44 Serum or plasma troponin i.cardiac measurement (mass/volume) < ng/ mL <0.028 Serum or plasma lithium measurement (moles/volume) - 12/29/18 18:44 BNP level 39.3 pg/mL <100.0 Myoglobin, serum - 12/29/18 18:44 Myoglobin, serum 33.5 ng/mL 10.0-92.0 Lipase - 12/29/18 18:44 Lipase 31 U/L 8-78 Encounters ACCT No. Visit Date/Time Discharge Status Pt. Type Provider Facility Loc./Unit Complaint [id number] 09/19/2014 12:35:00 09/19/2014 23:59:59 CLS Outpatient ELLEN CARRILLO DO [id number] 04/02/2014 17:40:00 04/02/2014 23:59:59 CLS Outpatient GREGOR DENG APRN [id number] 01/25/2014 12:03:00 01/25/2014 23:59:59 CLS Outpatient CARRILLO ELLEN Felipa [id number] 01/23/2014 17:35:00 01/23/2014 23:59:59 CLS Outpatient CHIVO SILVA APRN [id number] 01/09/2014 08:15:00 01/09/2014 23:59:59 CLS Outpatient CHIVO SILVA APRN [id number] 01/17/2013 17:09:00 01/17/2013 23:59:59 CLS Outpatient ELLEN CARRILLO DO Felipa [id number] 12/29/2012 12:18:00 12/29/2012 23:59:59 CLS Outpatient [id number] 09/17/2017 14:10:00 Document Registration [id number] 12/29/2018 17:00:00 12/29/2018 23:59:59 CLS Outpatient DAYNE TOVAR, CELINA [facility] [id number] 09/16/2017 08:20:00 Document Registration [id number] 03/29/2017 09:06:00 Document Registration [id number] 03/31/2017 18:09:00 Document Registration [id number] 12/29/2018 18:24:00 12/29/2018 19:55:00 DIS Emergency CY TOVAR, MILLY Brandt [facility] ER CHEST PAIN;ABNORMAL HEART RHYTHM [id number] 08/09/2018 12:28:00 08/26/2018 15:54:00 DIS Outpatient WINSOME HOWE RAPIER INSERTION LOOM FIXER [facility] REHAB LUMBAGO [id number] 03/22/2018 08:24:00 03/22/2018 23:59:59 CLS Outpatient WINSOME HOWE RAPIER INSERTION LOOM FIXER [facility] RAD SCREENING [id number] 03/17/2018 09:36:00 03/17/2018 23:59:59 CLS Outpatient WINSOME HOWE RAPIER INSERTION LOOM FIXER [facility] RAD M54.41 LUMBAGO W/ SCIATICA, RT [id number] 12/26/2017 08:51:00 12/26/2017 09:14:00 DIS Emergency CJ TOVAR, PAUL Leo [facility] ER CANT BREATH AT NIGHT [id number] 04/19/2017 13:07:00 04/19/2017 23:59:59 CLS Outpatient ANTIONE BERGRito Busch SKILLED HELPER [facility] RAD ABNORMAL MAMMO R92.8 [id number] 09/14/2016 08:02:00 09/14/2016 23:59:59 CLS Outpatient NATALYA BERG SKILLED HELPER [facility] RAD R92.8 [id number] 04/08/2016 21:11:00 04/08/2016 23:42:00 DIS Emergency NICOLE BLANCA [facility] ER LEFT TOE PAIN;LEFT HIP PAIN [id number] 03/04/2016 15:29:00 03/04/2016 23:59:59 CLS Outpatient OTIS NATALYA A SKILLED HELPER [facility] RAD SCREENING [id number] 10/19/2014 09:02:00 10/19/2014 23:59:59 CLS Outpatient CHIVO SILVA RAPIER INSERTION LOOM FIXER [facility] RAD FOLLOW UP 6 MONTH ABNORMAL MAMMO [id number] 04/16/2014 11:34:00 04/16/2014 23:59:59 CLS Outpatient CHIVO SILVA RAPIER INSERTION LOOM FIXER [facility] RAD ABNORMAL MAMMO [id number] 04/09/2014 11:12:00 04/09/2014 23:59:59 CLS Outpatient GREGOR DENG RAPIER INSERTION LOOM FIXER [facility] RAD POST MENOPAUSAL BLEEDING [id number] 04/09/2014 11:05:00 04/09/2014 23:59:59 CLS Outpatient GREGOR DENG RAPIER INSERTION LOOM FIXER [facility] RAD SCREENING [id number] 01/03/2019 08:46:00 ACT Outpatient EULOGIO TOVAR FACCJUAN FACP CCDS [facility] CATH CHEST DISCOMFORT,SOB,ABN EKG [id number] 10/17/2014 16:38:00 Document Registration [id number] 08/12/2012 15:37:00 Document Registration [id number] 06/03/2012 11:53:00 Document Registration [id number] 06/02/2012 07:19:00 Document Registration [id number] 12/05/2011 14:23:00 Document Registration [id number] 06/06/2011 17:26:00 Document Registration [id number] 04/28/2011 10:53:00 Document Registration [id number] 12/14/2010 16:38:00 Document Registration
[2019-01-03 09:34] LABS: HEMOGLOBIN 13.1 G/DL (11.5-16.0); MEAN PLATELET VOLUME 9.1 FL (7.4-10.4); WHITE BLOOD COUNT 5.9 10^3/uL (4.3-11.0)
[2019-01-03 09:44] LABS: PROTHROMBIN TIME PATIENT 13.5 SEC (12.2-14.7)
[2019-01-03] MEDS ORDERED: PANT40TA2 PO (09:57)
[2019-01-03] MEDS ORDERED: SUCR1TAB36 PO (09:57)
[2019-01-03 09:58] LABS: ALANINE AMINOTRANSFERASE 18 U/L (0-55); ALBUMIN 4.3 GM/DL (3.2-4.5); ALKALINE PHOSPHATASE 79 U/L (40-136); BILIRUBIN,TOTAL 0.4 MG/DL (0.1-1.0); BUN/CREATININE RATIO 11; CALCIUM 9.3 MG/DL (8.5-10.1); CARBON DIOXIDE 25 MMOL/L (21-32); CHLORIDE 108 MMOL/L (98-107); CHOLESTEROL 159 MG/DL (< 200); CREATININE SERUM 0.81 MG/DL (0.60-1.30); GFR ESTIMATED > 60; GLUCOSE 110 MG/DL (70-105); HDL CHOLESTEROL 42 MG/DL (40-60); POTASSIUM 4.2 MMOL/L (3.6-5.0); SODIUM 142 MMOL/L (135-145); TOTAL PROTEIN 7.2 GM/DL (6.4-8.2); TRIGLYCERIDES 116 MG/DL (<150); VLDL CHOLESTEROL 23 MG/DL (5-40)
[2019-01-03] MEDS ORDERED: MIDAZOLAM 5 MG/5 ML (VERSED) VIAL ONE (10:13)
[2019-01-03] MEDS ORDERED: fentaNYL INJECTION 100 MCG/2 ML AMP ONE (10:13)
[2019-01-03] MEDS ORDERED: NS IV 1000 ML 1,000 ML IV SCH ×2 (10:30→11:31)
--- NOTE | 2019-01-03 10:37 | Cardiac Procedure Note-CS/ASA ---
Pre-Procedure Note Pre-Op Procedure Note H&P Reviewed The H&P was reviewed, patient examined and no changes noted. Date H&P Reviewed: Jan 03, 2019 Time H&P Reviewed: 10:37 Conscious Sedation Pre-Proced Time 10:37 ASA Score 3 For ASA 3 and 4: Consider anesthesia and medical clearance. Also, for patients with a history of failed moderate sedation consider anesthesia. Airway Lungs Heart ASA score ASA 1: a normal healthy patient ASA 2: a patient with a mild systemic disease (mid diabetes, controlled hypertension, obesity ASA 3: a patient with a severe systemic disease that limits activity (angina , COPD, prior Myocardial infarction) ASA 4: a patient with an incapacitating disease that is a constant threat to life (CHF, renal failure) ASA 5: a moribund patient not expected to survive 24 hrs. (ruptured aneurysm) ASA 6: a declared brain- patient whose organs are being harvested. For emergent operations, add the letter E after the classification Mallampati Classification Grade 2 Sedation Plan Analgesia, Amnesia, Plan communicated to team members, Discussed options with patient/fam, Discussed risks with patient/fam The patient is an appropriate candidate to undergo the planned procedure, sedation, and anesthesia. The patient immediately re-assessed prior to indication. JUAN KRISHNAN MD FACP FAC CCDS Jan 03, 2019 10:37
[2019-01-03] MEDS ORDERED: FLU QUADRIvalent (5+ YOA) 2018-2019 (AFLURIA) 0.5 ML IM ONE (10:45)
[2019-01-03] MEDS ORDERED: NITRO DRIP 25000 MCG/D5W 250 ML IV ONE (11:06)
--- NOTE | 2019-01-03 11:34 | Discharge Inst-Post CATH ---
Discharge Inst-CATH/EP Post Cardiac Cath/EP D/C Inst Follow Up/Plan Follow up with Dr Bedoya in 2 weeks CARDIAC CATH DISCHARGE INSTRUCTIONS *Hold Metformin for 48 hours post heart cath. ACTIVITY * Go Home directly and rest. * Limit activity of the leg (or wrist if it was used) for 7 days including aerobics, swimming, jogging, bicycling, etc. * Restrict stair-climbing for 7 days if possible, if not, climb up with your non -cath leg, then bring together on the same step. * Avoid lifting, pushing, pulling or excessive movement of the affected extremity for 7 days. * Customary sexual activity may be resumed after 2 days-use caution not to use a position that strains or causes pain to the affected extremity. * No driving for 24 hours. * NO SMOKING. * Avoid straining for bowel movements for 7 days. * Gentle walking on level ground is allowed. * Returning to work will depend on the type of procedure and the results. Your doctor will discuss this with you. CALL YOUR DOCTOR FOR ANY OF THE FOLLOWING: *If bleeding from the puncture site occurs- Apply gentle pressure to site with clean cloth and call your doctor or EMS. * If a knot or lump forms under the skin, increases in size, or causes pain. * If bruising appears to be worsening or moving further down your leg instead of disappearing. * Temperature above 101 F. CARE OF YOUR GROIN INCISION; * Bruising or purple discoloration of the skin near the puncture site is common. * You may shower only, no bathtub bathing for 5 days. Be careful to avoid slipping as your leg may feel stiff. * If a closure device was used on your femoral artery, please see the attached guide regarding care of the device and your leg. * Leave the dressing on, until removed by office staff. CARE OF YOUR WRIST INCISION; * Bruising or purple discoloration of the skin near the puncture site is common. * You may shower. * DO NOT submerge wrist. * Leave dressing on, until removed by office staff.. JUAN BEDOYA MD [facility] Jan 03, 2019 11:34
--- NOTE | 2019-01-03 11:34 | Discharge Inst-Cardiology ---
Discharge Inst-Cardiac Discharge Medications Continued Medications: Metoprolol Tartrate (Metoprolol Tartrate) 25 Mg Tablet 25 MG PO BID for 30 Days, #60 TAB 0 Refills Pantoprazole Sodium (Protonix) 40 Mg Tablet.dr 40 MG PO DAILY, TAB Sucralfate (Carafate) 1 Gm Tablet 1 GM PO BID, TAB Discontinued Medications: Aspirin (Aspir 81) 81 Mg Tablet.dr 81 MG PO DAILY for 30 Days, #30 TAB 0 Refills JUAN KRISHNAN MD FACP [facility] Jan 03, 2019 11:34
[2019-01-03] MEDS ORDERED: PATIENT MAY USE OWN MEDS, ALL PO SCH (11:45)
--- NOTE | 2019-01-03 11:58 | CARDIAC CATHETERIZATION ---
DATE OF SERVICE: 01/03/2019 CARDIAC CATHETERIZATION HISTORY OF PRESENT ILLNESS: The patient is a 48-year-old lady who has multiple coronary artery disease risk factors and has recent onset of symptoms consistent with angina. Cardiac catheterization was carried out today after having obtained informed consent. DESCRIPTION OF PROCEDURE: She was brought to the cardiac catheterization laboratory in a fasting state. Right groin was prepared and draped in the usual sterile fashion. Lidocaine 1% was used for local anesthesia. Modified Seldinger technique was used to advance a 5-Cymro sheath in the right femoral artery, 5-Cymro JL4 catheter was used for left coronary angiography, 5-Cymro JR4 catheters were used for right coronary angiography, 5-Cymro pigtail catheter was used for left heart catheterization and left ventricular angiography. Pigtail catheter was pulled back to the aortic root and aortic root angiography was performed. Aortic root angiography was performed to take another look at the right coronary artery, which was quite prone to spasm with engagement with the Marita right catheter. Subsequently, we went in with the Marita right catheter again and carried out selective angiography of the right coronary after 100 mcg of intracoronary nitroglycerin. The catheter was then removed. Angiography of the right femoral artery had been carried out through the sheath at the beginning of the procedure. At the end of the procedure, Mynx was used to achieve hemostasis. She tolerated the procedure well. HEMODYNAMICS: Left ventricular end-diastolic pressure following coronary angiography was 16 mmHg. There is no significant pressure gradient on pullback across the aortic valve. Ascending aortic pressure was 114/65 with a mean of 88 mmHg. CORONARY ANGIOGRAPHY: Left main coronary artery is free of significant disease. Left circumflex artery is free of significant disease. Left anterior descending artery is free of significant disease. Right coronary artery is dominant and prone to spasm with catheter engagement, but does not exhibit significant disease. LEFT VENTRICULAR ANGIOGRAPHY: Left ventricular angiography was carried out in the right anterior oblique projection. Global left ventricular systolic function is normal. No regional wall motion abnormalities seen. Left ventricular ejection fraction was approximately 60%. AORTIC ROOT ANGIOGRAPHY: Aortic root angiography did not indicate any aortic root aneurysm or dissection. The aortic leaflets show good leaflet excursion. There is no significant aortic regurgitation. Right coronary artery was not well visualized with aortic root injection. CONCLUSIONS: 1. No angiographically significant coronary artery disease. 2. Normal global left ventricular systolic function with ejection fraction approximately 60%. 3. Mild elevation of left ventricular end-diastolic pressure. 4. No significant mitral regurgitation. DISCUSSION AND RECOMMENDATIONS: Based on results of the study, her chest discomfort does not appear to be of coronary origin. Continue risk factor modification is advised. Outpatient followup is advised. Job ID: [id number] DocumentID: [id number] Dictated Date: 01/03/2019 11:22:56 Expedition Supervisor Date: 01/03/2019 11:57:51 Dictated By: JUAN KRISHNAN MD, MA, FACP, FACC,
== END 2019-01-03 15:15 | disposition home or self-care (01) ==
LOC: CATH 08:46 → SDC 11:55 → CATH 15:15
PROVIDERS: ATTEND Internal Medicine Cardiovascular Disease
DX: R07.89 Other chest pain (principal); R06.02 Shortness of breath; E66.9 Obesity, unspecified; Z68.36 Body mass index [BMI] 36.0-36.9, adult; Z82.49 Family history of ischemic heart disease and other diseases of the circulatory system; Z87.891 Personal history of nicotine dependence; Z79.899 Other long term (current) drug therapy
CPT/HCPCS: 36415; 36430; 80053; 80061; 85027; 85610; 85730; 87081; 93458; 93567

== ENCOUNTER 2019-01-10 17:19 | Emergency (ER) | payer SELFPAY ==
[~2019-01-10] VITALS: Ht 165.1 cm; Wt 96.2 kg
[~2019-01-10 17:19] MED LIST changes: +PANT40TA2 PO
--- NOTE | 2019-01-10 17:29 | NUR ---
PT REPORTS BEING SEEN BY [facility] A FEW WEEKS AGO AND BEING SENT TO THE ER FOR BACK PAIN THAT THEY WERE CONCENRED MAYBE THE START OF A SC. PT CAME TO THIS ER AND WAS EVALUATED AND REFERRAL TO DR HAND WAS PUT IN. PT HAD HEART CATH LAST WEEK AND CAME BACK CLEAN. PT IS TO FOLLOW UP WITH DR HAND ON WEDNESDAY. PT ALSO REPORTS THAT SHE NOTICED A LUMP IN HER LEFT ARMPIT THIS AM AND HAS BEEN COUGHING UP PINK COLORED SPUTUM ON AND OFF FOR AWHILE NOW.
[2019-01-10] MEDS ORDERED: ASPIRIN 81 MG CHEW (CHILDREN'S ASA) PO ONE (20:00)
[2019-01-10 20:42] LABS: BASOPHILS % (AUTO) 0 % (0-10); EOSINOPHILS # (AUTO) 0.1 10^3/uL (0.0-0.3); EOSINOPHILS % (AUTO) 1 % (0-10); HEMATOCRIT 39 % (35-52); HEMOGLOBIN 12.9 G/DL (11.5-16.0); LYMPHOCYTES # (AUTO) 2.4 X 10^3 (1.0-4.0); LYMPHOCYTES % (AUTO) 32 % (12-44); MEAN CORPUSCULAR HEMOGLOBIN 30 PG (25-34); MEAN CORPUSCULAR HGB CONC 33 G/DL (32-36); MEAN CORPUSCULAR VOLUME 92 FL (80-99); MEAN PLATELET VOLUME 8.9 FL (7.4-10.4); MONOCYTES # (AUTO) 0.6 X 10^3 (0.0-1.0); MONOCYTES % (AUTO) 7 % (0-12); NEUTROPHILS # (AUTO) 4.4 X 10^3 (1.8-7.8); NEUTROPHILS % (AUTO) 59 % (42-75); PLATELET COUNT 318 10^3/uL (130-400); RED CELL DISTRIBUTION WIDTH 12.9 % (10.0-14.5); WHITE BLOOD COUNT 7.4 10^3/uL (4.3-11.0)
--- NOTE | 2019-01-10 20:43 | Diagnostic Imaging Report ---
PROCEDURE: CT thoracic spine without contrast. TECHNIQUE: Multiple axial computerized tomography images were obtained from the base of the thoracic spine to the vertex without intravenous contrast. DATE: January 10, 2019. INDICATION: 48-year-old female, severe mid back pain. COMPARISON: None. FINDINGS: The alignment of the thoracic spine is unremarkable. There is no identified acute fracture of the cervical spine. There is very mild disc degenerative changes of the thoracic spine. CT is limited for assessment of disc pathology as well as additional non-bony causes of pathology within the spinal canal. The visualized portions of the lungs are clear. IMPRESSION: 1. No identified acute abnormality of the thoracic spine. 2. Very mild disc degenerative changes of the thoracic spine. CT is limited for assessment of disc pathology as well as additional non-bony causes of pathology within the spinal canal. Dictated by: Dictated on workstation # [id number]
[2019-01-10 20:48] LABS: INR 1.1 (0.8-1.4); PROTHROMBIN TIME PATIENT 13.7 SEC (12.2-14.7)
--- NOTE | 2019-01-10 20:52 | Diagnostic Imaging Report ---
EXAMINATION: Chest radiograph, portable AP view. DATE: January 10, 2019 at 2016 hours. INDICATION: 48-year-old male, mid back pain and chest pain. COMPARISON: December 29, 2018. FINDINGS: Heart size and mediastinal contours are unremarkable. There is no identified pneumothorax. There is no large pleural effusion. There is no identified focal airspace consolidation. IMPRESSION: 1. No identified acute cardiopulmonary abnormality. Dictated by: Dictated on workstation # [id number]
--- NOTE | 2019-01-10 20:53 | Diagnostic Imaging Report ---
EXAMINATION: Left ankle radiographs, 3 views. COMPARISON: None. HISTORY: 48-year-old female, left ankle pain. FINDINGS: There is no tibiotalar joint effusion. There is degenerative type enthesopathy at the insertion of the Achilles tendon. There is a small calcaneal heel spur. There is no identified radiopaque foreign body. The alignment of the ankle mortise is unremarkable. There is soft tissue swelling laterally adjacent to the tip of the lateral malleolus and adjacent to the lateral aspect of the calcaneus. There is irregularity of the lateral margin of the calcaneus on the AP view which is concerning for fracture of the lateral calcaneus. IMPRESSION: 1. Findings concerning for fracture involving the lateral aspect of the calcaneus. Recommend CT left ankle without contrast for further evaluation. Dictated by: Dictated on workstation # [id number]
[2019-01-10] MEDS ORDERED: IOHEXOL 350 MG/ML 150 ML (OMNIPAQUE 350) VIAL IV ONE (21:00)
[2019-01-10] MEDS ORDERED: NS 100 ML (IVPB) BAG IV ONE (21:00)
[2019-01-10] MEDS ORDERED: RECEIVED CONTRAST (Hold Metformin) IV SCH (21:00)
[2019-01-10 21:23] LABS: ALANINE AMINOTRANSFERASE 15 U/L (0-55); ALBUMIN 4.5 GM/DL (3.2-4.5); ALKALINE PHOSPHATASE 86 U/L (40-136); BILIRUBIN,TOTAL 0.4 MG/DL (0.1-1.0); BUN/CREATININE RATIO 16; CALCIUM 9.6 MG/DL (8.5-10.1); CARBON DIOXIDE 24 MMOL/L (21-32); CHLORIDE 104 MMOL/L (98-107); CREATININE SERUM 1.15 MG/DL (0.60-1.30); GFR ESTIMATED 50; GLUCOSE 93 MG/DL (70-105); MAGNESIUM 2.3 MG/DL (1.8-2.4); MYOGLOBIN SERUM 31.2 NG/ML (10.0-92.0); POTASSIUM 3.9 MMOL/L (3.6-5.0); SODIUM 139 MMOL/L (135-145); TOTAL PROTEIN 7.8 GM/DL (6.4-8.2)
--- NOTE | 2019-01-10 22:08 | Diagnostic Imaging Report ---
PROCEDURE: CT angiography of the chest with contrast. TECHNIQUE: Multiple contiguous axial images were obtained through the chest after uneventful bolus administration of intravenous contrast. 2D reconstructed CTA MIP acquisitions were also performed. DATE: January 10, 2019. COMPARISON: Chest radiograph January 10, 2019. INDICATION: 48-year-old female, mid back pain. Difficulty breathing. FINDINGS: There are peripheral opacities in the right and left upper lobe likely reflecting mild scarring. There is no additional focal airspace consolidation. There is no identified noncalcified pulmonary nodule or lung mass. There is calcified left upper lobe granuloma. There are calcified left hilar lymph nodes compatible with sequela of prior granulomatous disease as well as calcified AP window lymph nodes. There is no pneumothorax. There is no pleural effusion. The central airways are patent. There is no identified central or segmental pulmonary embolus. There are limitations for evaluation of sub-segmental pulmonary emboli given the timing of the contrast bolus. The main pulmonary artery is normal in caliber. The heart is normal in size. There is no pericardial effusion. There is no identified abnormally enlarged mediastinal, hilar, or axillary lymph node which meets CT size criteria for adenopathy. The imaged portions of the upper abdomen are unremarkable in appearance. There is no identified acute bony abnormality. IMPRESSION: CT CHEST. 1. No identified pulmonary embolus or other acute cardiopulmonary abnormality. Dictated by: Dictated on workstation # [id number]
--- NOTE | 2019-01-10 23:54 | ED Back Pain ---
General Chief Complaint: Back Problems Stated Complaint: BACK PAIN, SYNCOPE Nursing Triage Note: PT REPORTS STANDING UP QUICKLY AT WORK AND BLACKING OUT. PT DENIES HITTING HEAD. PT DOES REPORT BACK PAIN THAT HAS BEEN GOING ON FOR SEVERAL WEEKS AND HAS SEEN PHSYICIANS FOR. PT WOULD LIKE TO BE SEEN FOR SEVERE BACK PAIN AND LEFT FOOT PAIN THAT HAPPENED WHEN SHE BLACKED OUT. Nursing Sepsis Screen: No Definite Risk Source of Information: Patient Exam Limitations: No Limitations History of Present Illness Date Seen by Provider: Jan 10, 2019 Time Seen by Provider: 19:57 Allergies and Home Medications Allergies Coded Allergies: NKANo Known Allergies (Unverified Allergy, Mild, 01/10/19) Home Medications Hydrocodone Bit/Acetaminophen 1 Tab Tab, 1 EACH PO Q4-6HR PRN for PAIN-MODERATE Prescribed by: JAMIE GERMAIN on 01/11/19 0000 Metoprolol Tartrate 25 Mg Tablet, 25 MG PO BID Prescribed by: MILLY BENOIT on 12/29/18 1944 Pantoprazole Sodium 40 Mg Tablet.dr, 40 MG PO DAILY, (Reported) Sucralfate 1 Gm Tablet, 1 GM PO BID, (Reported) Past Bgknxyk-[id number]-Hdgdih Hx Patient Social History Alcohol Use: Rarely Uses Alcohol Beverage of Choice: Wine Recreational Drug Use: No Smoking Status: Former Smoker Type Used: Cigarettes Former Smoker, Quit: Dec 13, 2017 2nd Hand Smoke Exposure: Yes Recent Foreign Travel: No Contact w/Someone Who Travel: No Recent Infectious Disease Expo: No Recent Hopitalizations: No Physical Abuse: No Sexual Abuse: No Past Medical History Surgeries: Yes (colonoscopy, skin cancer removal from chest) Abdominal, Appendectomy, Bladder Surgery, Section, Tonsillectomy Respiratory: No Currently Using CPAP: No Currently Using BIPAP: No Cardiac: Yes Heart Murmur Neurological: No Genitourinary: Yes Gastrointestinal: Yes Gastroesophageal Reflux Musculoskeletal: No Endocrine: No Cancer: Yes (ADENOCARCINOMA REMOVED) Did You Recieve Any Treatments: Yes What Type of Treatment Did You: Surgical Intervention Psychosocial: No Integumentary: No Blood Disorders: No Adverse Reaction/Blood Tranf: No Family Medical History No Pertinent Family Hx Physical Exam Vital Signs Vital Signs - First Documented 01/10/19 01/10/19 17:29 20:19 Temp 98.2 Pulse 81 Resp 16 B/P (MAP) 155/81 (105) Pulse Ox 97 O2 Delivery Room Air Capillary Refill : Less Than 3 Seconds Height, Weight, BMI Height: 5'5.00" Weight: 212lbs. 0.0oz. 96.470568sn; 36.1 BMI Method:Stated Progress/Results/Core Measures Results/Orders Lab Results Laboratory Tests Test 01/10/19 20:27 01/10/19 22:10 Range/Units White Blood Count 7.4 4.3-11.0 10^3/uL Red Blood Count 4.24 L 4.35-5.85 10^6/uL Hemoglobin 12.9 11.5-16.0 G/DL Hematocrit 39 35-52 % Mean Corpuscular Volume 92 80-99 FL Mean Corpuscular Hemoglobin 30 25-34 PG Mean Corpuscular Hemoglobin Concent 33 32-36 G/DL Red Cell Distribution Width 12.9 10.0-14.5 % Platelet Count 318 130-400 10^3/uL Mean Platelet Volume 8.9 7.4-10.4 FL Neutrophils (%) (Auto) 59 42-75 % Lymphocytes (%) (Auto) 32 12-44 % Monocytes (%) (Auto) 7 0-12 % Eosinophils (%) (Auto) 1 0-10 % Basophils (%) (Auto) 0 0-10 % Neutrophils # (Auto) 4.4 1.8-7.8 X 10^3 Lymphocytes # (Auto) 2.4 1.0-4.0 X 10^3 Monocytes # (Auto) 0.6 0.0-1.0 X 10^3 Eosinophils # (Auto) 0.1 0.0-0.3 10^3/uL Basophils # (Auto) 0.0 0.0-0.1 10^3/uL Prothrombin Time 13.7 12.2-14.7 SEC INR Comment 1.1 0.8-1.4 Activated Partial Thromboplast Time 28 24-35 SEC D-Dimer 1.29 H 0.00-0.49 UG/ML Sodium Level 139 135-145 MMOL/L Potassium Level 3.9 3.6-5.0 MMOL/L Chloride Level 104 98-107 MMOL/L Carbon Dioxide Level 24 21-32 MMOL/L Anion Gap 11 5-14 MMOL/L Blood Urea Nitrogen 18 7-18 MG/DL Creatinine 1.15 0.60-1.30 MG/DL Estimat Glomerular Filtration Rate 50 BUN/Creatinine Ratio 16 Glucose Level 93 70-105 MG/DL Calcium Level 9.6 8.5-10.1 MG/DL Corrected Calcium 9.2 8.5-10.1 MG/DL Magnesium Level 2.3 1.8-2.4 MG/DL Total Bilirubin 0.4 0.1-1.0 MG/DL Aspartate Amino Transf (AST/SGOT) 18 5-34 U/L Alanine Aminotransferase (ALT/SGPT) 15 0-55 U/L Alkaline Phosphatase 86 40-136 U/L Myoglobin 31.2 10.0-92.0 NG/ML Troponin I < 0.028 < 0.028 <0.028 NG/ML B-Type Natriuretic Peptide < 10.0 <100.0 PG/ML Total Protein 7.8 6.4-8.2 GM/DL Albumin 4.5 3.2-4.5 GM/DL My Orders Orders - BERNOT,JAMIE Cbc With Automated Diff (01/10/19 19:57) Magnesium (01/10/19 19:57) Chest 1 View, Ap/Pa Only (01/10/19 19:57) Ekg Tracing (01/10/19 19:57) Cardiac Profile 1 (01/10/19 19:57) Comprehensive Metabolic Panel (01/10/19 19:57) Myoglobin Serum (01/10/19 19:57) Protime With Inr (01/10/19 19:57) Partial Thromboplastin Time (01/10/19 19:57) O2 (01/10/19 19:57) Monitor-Rhythm Ecg Trace Only (01/10/19:57) Lipid Panel (01/11/19 06:00) Aspirin Chewable Tablet (Baby Aspirin Ch (01/10/19 20:00) Saline Lock/Iv-Start (01/10/19 19:57) BNP (01/10/19 19:57) Fibrin Degradation Products (01/10/19 19:57) Ankle, Left, 3 Views (01/10/19 19:57) Ct Thoracic Spine Wo (01/10/19 19:57) Ct Angio Chest W (01/10/19 20:54) Iohexol Injection (Omnipaque 350 Mg/Ml 1 (01/10/19 21:00) Contrast Received (Contrast Received) (01/10/19 21:00) Ns (Ivpb) (Sodium Chloride 0.9% Ivpb Bag (01/10/19 21:00) Troponin I (01/10/19 21:50) Ct Extremity Lower Left Wo (01/10/19 22:55) Medications Given in ED Current Medications Medications Dose Ordered Sig/Vida Route Start Time Stop Time Status Last Admin Dose Admin Iohexol 150 ml ONCE ONCE IV 01/10/19 21:00 01/10/19 21:51 DC 01/10/19 21:39 125 ML Sodium Chloride 100 ml ONCE ONCE IV 01/10/19 21:00 01/10/19 21:51 DC 01/10/19 21:39 100 ML Vital Signs/I&O 01/10/19 01/10/19 17:29 20:19 Temp 98.2 Pulse 81 Resp 16 B/P (MAP) 155/81 (105) Pulse Ox 97 O2 Delivery Room Air Blood Pressure Mean: 105 Departure Impression Primary Impression: Calcaneal fracture Additional Impressions: Syncope Thoracic back pain Disposition: HOME, SELF-CARE Condition: Stable/Unchanged Departure-Patient Inst. Decision time for Depature: 23:53 Referrals: [facility]/ (PCP) Primary Care Physician SHAQUILLE KNIGHT APRN (Family) Primary Care Physician ALISA PRINCE MD Patient Instructions: Upper Back Pain (DC) Add. Discharge Instructions: Take medications as directed. Ice to the sore areas at [address] Prince office tomorrow morning for an appointment time for follow-up. Follow-up with Shaquille Knight at [facility] by calling tomorrow morning for an appointment for further evaluation. Wear the boot and use the crutches at all times. Do not bare weight on the left ankle until you follow up with orthopedic surgeon. Return back to the emergency room for worsening symptoms or concerns as needed. All discharge instructions reviewed with patient and/or family. Voiced understanding. Scripts Hydrocodone Bit/Acetaminophen (Hydrocodone/Acetaminophen 5/325mg Tablet) 1 Tab Tab 1 EACH PO Q4-6HR PRN for PAIN-MODERATE MDD 10, #20 TAB Prov: JAMIE GERMAIN 01/11/19 JAMIE GERMAIN Jan 10, 2019 23:54
[2019-01-11] MEDS ORDERED: ACHD5005 PO
[2019-01-11 00:31] VITALS: BP 136/90
--- NOTE | 2019-01-11 09:18 | Diagnostic Imaging Report ---
PROCEDURE: CT left lower extremity without contrast. TECHNIQUE: Multiple contiguous axial images were obtained through the left lower extremity without the use of intravenous contrast. Sagittal and coronal reformations were then performed. INDICATION: Lateral ankle pain after injury. COMPARISON: Left ankle radiographs of 01/10/2019. FINDINGS: Bones: There are acute cortical chip type fractures involving the most distal and dorsal aspect of the plantar calcaneus at its junction with the cuboid. The 2 small cortical-based fracture fragments are displaced laterally by up to 5 mm. These avulsion fractures at the site of the calcaneocuboid capsule and there are no tendons insert at the site. No additional acute fracture. Specifically, no fracture of the lateral talar process. No osteochondral lesion of the talar dome. Soft tissues: Achilles tendon is normal. Peroneal tendons are normal in position and show no full-thickness tear. Os peroneum is present as it courses under the cuboid. Posterior tibialis, flexor digitorum longus and flexor hallux longus are normal where seen. The anterior extensor tendons are grossly normal as well. There is a small amount of subcutaneous edema and swelling along the lateral aspect of the hindfoot/midfoot. IMPRESSION: 1. Acute tiny cortical corner fracture involving the dorsal and lateral aspect of the calcaneus at its junction with the cuboid. This is likely due to avulsion of the origin of the calcaneocuboid capsule. 2. No additional fracture. 3. Findings are in agreement with the preliminary report. Dictated by: Dictated on workstation # [id number]
== END 2019-01-11 00:50 | disposition home or self-care (01) ==
LOC: EDUNIT# 17:19 → ER 17:22
DX: S92.002A Unspecified fracture of left calcaneus, initial encounter for closed fracture (principal); R55 Syncope and collapse; M54.6 Pain in thoracic spine; K21.9 Gastro-esophageal reflux disease without esophagitis; R07.9 Chest pain, unspecified; Z87.891 Personal history of nicotine dependence; Z90.49 Acquired absence of other specified parts of digestive tract; Z98.890 Other specified postprocedural states; Z85.9 Personal history of malignant neoplasm, unspecified; Z90.89 Acquired absence of other organs; Z85.828 Personal history of other malignant neoplasm of skin; W19.XXXA Unspecified fall, initial encounter
CPT/HCPCS: 36415; 71045; 71275; 72128; 73610; 73700; 80053; 83735; 83874; 83880; 84484; 85025; 85379; 85610; 85730; 93005; 93041

== ENCOUNTER 2019-01-25 06:46 | Outpatient (CLI) | payer OTHER ==
[~2019-01-25] VITALS: Ht 165.1 cm; Wt 95.3 kg
[2019-01-25] MEDS ORDERED: RANI150T90 PO (13:08)
== END 2019-01-25 13:16 ==
LOC: PREOP 06:46
PROVIDERS: ATTEND Surgery
DX: Z01.818 Encounter for other preprocedural examination (principal)

== ENCOUNTER → 2019-05-29 | Outpatient (CLI) | payer OTHER ==
[~2019-05-29] MED LIST changes: +RANI150T90 PO
--- NOTE | 2019-05-29 13:45 | Diagnostic Imaging Report ---
INDICATION: Screening. TECHNIQUE: The current study was also evaluated with a Computer Aided Detection (CAD) system. 3D Tomographic imaging was also performed. COMPARISON: 03/22/2018, 04/19/2017, and 09/14/2016. FINDINGS: The fibroglandular tissue is heterogeneously dense bilaterally. This can limit the detection of small nodular densities. There are benign type calcifications. There is no new dominant mass, spiculated lesion, or suspicious calcification identified. The skin, nipples, and axillae are unremarkable. IMPRESSION: Benign findings. ACR BI-RADS Category 2: Benign findings. Result letter will be mailed to the patient. Note: At least 10% of breast cancer is not imaged by mammography. Dictated by: Dictated on workstation # [id number]
== END ==
LOC: RAD 08:12
PROVIDERS: ATTEND Nurse Practitioner Family
DX: Z12.31 Encounter for screening mammogram for malignant neoplasm of breast (principal)
CPT/HCPCS: 77067

== ENCOUNTER → 2019-07-26 | Outpatient (CLI) | payer SELFPAY ==
--- NOTE | 2019-07-26 10:59 | Diagnostic Imaging Report ---
PROCEDURE: MRI lumbar spine. TECHNIQUE: Multiplanar, multisequence MRI of the lumbar spine was performed without contrast. INDICATION: Chronic lower back pain. COMPARISON: 03/17/2018. FINDINGS: For the purposes of this exam, last well-formed disc space is denoted the L5-S1 level. Static alignment of the lumbar spine is maintained. There is no significant anteroretrolisthesis. There is no evidence of jumped facets. Vertebral body heights are maintained. There is no acute fracture. Evaluation of marrow signal demonstrates slight Modic type II change involving the inferior endplate of L5. Otherwise, marrow signal is unremarkable. Intervertebral disc heights are fairly well maintained, although there does appear to be posterior annular tear on the left at the L4-L5 level. Visualized portions of distal cord are unremarkable. Conus terminates at approximately the T12-L1 level. No abnormal intrathecal filling defects are identified. Pre-and paravertebral soft tissue structures are unremarkable. Axial images demonstrate the following: T12-L1 through L3-L4: There is no large disc bulge or focal protrusion. There is bilateral ligamentum flavum laxity and facet arthropathy, but no significant spinal canal or neuroforaminal stenosis. L4-L5: There is mild broad-based posterior disc bulge as well as bilateral ligamentum flavum laxity and facet arthropathy. As result, there is minimal narrowing of the spinal canal and bilateral neuroforamen. L5-S1: There is mild broad-based posterior disc bulge and bilateral facet arthropathy. As result, there is minimal narrowing of the bilateral neural foramen and minimal effacement of the anterior thecal sac. IMPRESSION: 1. Mild multilevel degenerative changes of the lumbar spine, but no significant spinal canal or neuroforaminal stenosis. 2. No acute fracture or dislocation. Dictated by: Dictated on workstation # [id number]
== END ==
LOC: RAD 08:25
PROVIDERS: ATTEND Nurse Practitioner Family
DX: M47.816 Spondylosis without myelopathy or radiculopathy, lumbar region (principal); M51.37 Other intervertebral disc degeneration, lumbosacral region
CPT/HCPCS: 72148

== ENCOUNTER 2020-01-01 05:39 | Outpatient (CLI) | payer OTHER ==
[~2020-01-01] VITALS: Ht 165.1 cm; Wt 99.5 kg
[~2020-01-01 05:39] MED LIST changes: -INDO50CA11 PO; +INDO50CA82 PO
== END 2020-01-01 13:43 | disposition home or self-care (01) ==
LOC: PREOP 05:39
PROVIDERS: ATTEND Surgery
DX: Z01.818 Encounter for other preprocedural examination (principal)

== ENCOUNTER 2020-01-29 05:36 | Outpatient (CLI) | payer SELFPAY ==
[~2020-01-29] VITALS: Ht 165 cm; Wt 99.5 kg
== END 2020-01-29 11:54 | disposition home or self-care (01) ==
LOC: PREOP 05:36
PROVIDERS: ATTEND Surgery
DX: Z01.818 Encounter for other preprocedural examination (principal)

== ENCOUNTER 2020-07-21 10:26 | Emergency (ER) | payer SELFPAY ==
[~2020-07-21] VITALS: Ht 163 cm; Wt 100.0 kg
--- NOTE | 2020-07-21 10:50 | ED GI ---
General Chief Complaint: Rect Problems Stated Complaint: RECTAL BLEEDING Nursing Triage Note: patient reports having bloody diarrhea x 1. Sepsis Screen: No Definite Risk Source of Information: Patient Exam Limitations: No Limitations History of Present Illness Date Seen by Provider: Jul 21, 2020 Time Seen by Provider: 10:48 Initial Comments To ER with reports of bloody diarrhea times one earlier today. This was bright red blood. She denies any abdominal pain. She did notice some lightheadedness yesterday. No fever or chills. No nausea or vomiting. She has a strong family history of colon cancer and she is concerned this may be related to that. She is supposed to have a colonoscopy every 5 years, she had one about 5 years ago and it was normal. Timing/Duration: 1-2 Days Radiation: No Radiation Activities at Onset: None Associated Symptoms: Denies Symptoms Allergies and Home Medications Allergies Coded Allergies: No Known Drug Allergies (Unverified , 01/29/20) Home Medications No Active Prescriptions or Reported Meds Patient Home Medication List Home Medication List Reviewed: Yes Review of Systems Review of Systems Constitutional: see HPI EENTM: No Symptoms Reported Respiratory: No Symptoms Reported Cardiovascular: No Symptoms Reported Gastrointestinal: See HPI, Abdominal Pain, Diarrhea; Denies Nausea; Rectal Bleeding Genitourinary: No Symptoms Reported Musculoskeletal: no symptoms reported Skin: no symptoms reported Psychiatric/Neurological: No Symptoms Reported, Emotional Problems Past Ayyfyim-Gckrgu-Bzetdv Hx Patient Social History Alcohol Use: Denies Use Number of Drinks Today: Alcohol Beverage of Choice: Wine Recreational Drug Use: No Type Used: Cigarettes Former Smoker, Quit: Dec 13, 2017 2nd Hand Smoke Exposure: Yes Recent Foreign Travel: No Contact w/Someone Who Travel: No Recent Infectious Disease Expo: No Recent Hopitalizations: No Seasonal Allergies Seasonal Allergies: No Past Medical History Surgeries: Yes ( skin cancer removal from chest) Abdominal, Appendectomy, Bladder Surgery, Section, Tonsillectomy Respiratory: No Currently Using CPAP: No Currently Using BIPAP: No Cardiac: Yes Heart Murmur Neurological: No Genitourinary: No Gastrointestinal: Yes Gastroesophageal Reflux, Polyps Musculoskeletal: No Endocrine: No HEENT: No Cancer: Yes (ADENOCARCINOMA REMOVED) Skin Did You Recieve Any Treatments: Yes What Type of Treatment Did You: Surgical Intervention Psychosocial: No Integumentary: No Blood Disorders: No Adverse Reaction/Blood Tranf: No Family Medical History No Pertinent Family Hx Physical Exam Vital Signs Vital Signs - First Documented 07/21/20 10:37 Temp 36.8 Pulse 76 Resp 18 B/P (MAP) 157/68 (97) Pulse Ox 96 Capillary Refill : Less Than 3 Seconds Height/Weight/BMI Height: 5'5.00" Weight: 210lbs. 0.0oz. 95.328959nv; 37.00 BMI Method:Stated General Appearance: WD/WN, no apparent distress Neck: non-tender, full range of motion Respiratory: no respiratory distress, no accessory muscle use Gastrointestinal: normal bowel sounds, non tender, soft; No tenderness Extremities: normal range of motion, non-tender Neurologic/Psychiatric: alert, normal mood/affect, oriented x 3 Skin: normal color, warm/dry Progress/Results/Core Measures Results/Orders Lab Results Laboratory Tests Test 07/21/20 10:40 Range/Units White Blood Count 5.5 4.3-11.0 10^3/uL Red Blood Count 4.23 L 4.35-5.85 10^6/uL Hemoglobin 13.0 11.5-16.0 G/DL Hematocrit 39 35-52 % Mean Corpuscular Volume 92 80-99 FL Mean Corpuscular Hemoglobin 31 25-34 PG Mean Corpuscular Hemoglobin Concent 34 32-36 G/DL Red Cell Distribution Width 13.0 10.0-14.5 % Platelet Count 316 130-400 10^3/uL Mean Platelet Volume 8.7 7.4-10.4 FL Neutrophils (%) (Auto) 57 42-75 % Lymphocytes (%) (Auto) 32 12-44 % Monocytes (%) (Auto) 9 0-12 % Eosinophils (%) (Auto) 2 0-10 % Basophils (%) (Auto) 0 0-10 % Neutrophils # (Auto) 3.1 1.8-7.8 X 10^3 Lymphocytes # (Auto) 1.8 1.0-4.0 X 10^3 Monocytes # (Auto) 0.5 0.0-1.0 X 10^3 Eosinophils # (Auto) 0.1 0.0-0.3 10^3/uL Basophils # (Auto) 0.0 0.0-0.1 10^3/uL Prothrombin Time 13.2 12.2-14.7 SEC INR Comment 1.0 0.8-1.4 Sodium Level 140 135-145 MMOL/L Potassium Level 4.0 3.6-5.0 MMOL/L Chloride Level 106 98-107 MMOL/L Carbon Dioxide Level 22 21-32 MMOL/L Anion Gap 12 5-14 MMOL/L Blood Urea Nitrogen 9 7-18 MG/DL Creatinine 0.81 0.60-1.30 MG/DL Estimat Glomerular Filtration Rate > 60 BUN/Creatinine Ratio 11 Glucose Level 103 70-105 MG/DL Calcium Level 9.0 8.5-10.1 MG/DL Corrected Calcium 8.9 8.5-10.1 MG/DL Total Bilirubin 0.4 0.1-1.0 MG/DL Aspartate Amino Transf (AST/SGOT) 18 5-34 U/L Alanine Aminotransferase (ALT/SGPT) 22 0-55 U/L Alkaline Phosphatase 93 40-136 U/L Total Protein 7.5 6.4-8.2 GM/DL Albumin 4.1 3.2-4.5 GM/DL My Orders Orders - MARICHUY HARRISON APRN Cbc With Automated Diff (07/21/20 10:47) Comprehensive Metabolic Panel (07/21/20 10:47) Protime With Inr (07/21/20 10:47) Ed Iv/Invasive Line Start (07/21/20 10:47) Ct Abdomen/Pelvis W (07/21/20 10:47) Iohexol Injection (Omnipaque 350 Mg/Ml 1 (07/21/20 11:30) Received Contrast (Hold Metformin- Contr (07/21/20 11:30) Ns (Ivpb) (Sodium Chloride 0.9% Ivpb Bag (07/21/20 11:30) Medications Given in ED Current Medications Medications Dose Ordered Sig/Vida Route Start Time Stop Time Status Last Admin Dose Admin Iohexol 100 ml ONCE ONCE IV 07/21/20 11:30 07/21/20 11:31 DC 07/21/20 11:37 100 ML Sodium Chloride 100 ml ONCE ONCE IV 07/21/20 11:30 07/21/20 11:31 DC 07/21/20 11:38 80 ML Vital Signs/I&O 07/21/20 10:37 Temp 36.8 Pulse 76 Resp 18 B/P (MAP) 157/68 (97) Pulse Ox 96 Blood Pressure Mean: 97 Departure Impression Primary Impression: History of rectal bleeding Disposition: HOME, SELF-CARE Condition: Stable Departure-Patient Inst. Decision time for Depature: 12:07 Referrals: MIRZA BLUE,LOCAL PHYSICIAN (PCP) Primary Care Physician Patient Instructions: Colonoscopy Add. Discharge Instructions: 1. Call Dr. Blue's office tomorrow to make an appointment to be seen. He'll need to schedule a colonoscopy. Return to ER for any worsening or other concerns. All discharge instructions reviewed with patient and/or family. Voiced understanding. Scripts No Active Prescriptions or Reported Meds Copy Copies To 1: MIRZA BLUE PETER J WORKPLACE REHABILITATION OFFICER Jul 21, 2020 10:50
[2020-07-21 10:58] LABS: BASOPHILS % (AUTO) 0 % (0-10); EOSINOPHILS # (AUTO) 0.1 10^3/uL (0.0-0.3); EOSINOPHILS % (AUTO) 2 % (0-10); HEMATOCRIT 39 % (35-52); LYMPHOCYTES # (AUTO) 1.8 X 10^3 (1.0-4.0); LYMPHOCYTES % (AUTO) 32 % (12-44); MEAN CORPUSCULAR HEMOGLOBIN 31 PG (25-34); MEAN CORPUSCULAR HGB CONC 34 G/DL (32-36); MEAN CORPUSCULAR VOLUME 92 FL (80-99); MEAN PLATELET VOLUME 8.7 FL (7.4-10.4); MONOCYTES # (AUTO) 0.5 X 10^3 (0.0-1.0); MONOCYTES % (AUTO) 9 % (0-12); NEUTROPHILS # (AUTO) 3.1 X 10^3 (1.8-7.8); NEUTROPHILS % (AUTO) 57 % (42-75); PLATELET COUNT 316 10^3/uL (130-400); WHITE BLOOD COUNT 5.5 10^3/uL (4.3-11.0)
[2020-07-21 11:02] LABS: PROTHROMBIN TIME PATIENT 13.2 SEC (12.2-14.7)
[2020-07-21 11:11] LABS: ALANINE AMINOTRANSFERASE 22 U/L (0-55); ALBUMIN 4.1 GM/DL (3.2-4.5); ALKALINE PHOSPHATASE 93 U/L (40-136); BILIRUBIN,TOTAL 0.4 MG/DL (0.1-1.0); BUN/CREATININE RATIO 11; CARBON DIOXIDE 22 MMOL/L (21-32); CHLORIDE 106 MMOL/L (98-107); CREATININE SERUM 0.81 MG/DL (0.60-1.30); GFR ESTIMATED > 60; GLUCOSE 103 MG/DL (70-105); SODIUM 140 MMOL/L (135-145); TOTAL PROTEIN 7.5 GM/DL (6.4-8.2)
[2020-07-21] MEDS ORDERED: IOHEXOL 350 MG/ML 100 ML (OMNIPAQUE 350) VIAL IV ONE (11:30)
[2020-07-21] MEDS ORDERED: NS 100 ML (IVPB) BAG IV ONE (11:30)
[2020-07-21] MEDS ORDERED: HOLD METFORMIN - RECEIVED CONTRAST 20 ML VIAL IV SCH (11:30)
--- NOTE | 2020-07-21 12:04 | Diagnostic Imaging Report ---
PROCEDURE: CT abdomen and pelvis with contrast. TECHNIQUE: Multiple contiguous axial images were obtained through the abdomen and pelvis after administration of intravenous contrast. Auto Exposure Controls were utilized during the CT exam to meet ALARA standards for radiation dose reduction. INDICATION: Rectal bleeding, lightheaded. History of skin cancer. COMPARISON: 12/03/2009 FINDINGS: The lung bases are clear. The heart is normal in size. There is no pericardial effusion. The liver demonstrates no focal lesions. The spleen is normal. The pancreas is normal. The adrenal glands appear normal. The kidneys are unremarkable. The appendix is not seen but no secondary findings of appendicitis are identified. The bowel loops are nondistended without obstruction. The colon is completely decompressed. No large pooling of contrast is seen within the colon. No large masses are identified in the colon, although this is better evaluated by endoscopy. No free fluid or free air is seen. No lymphadenopathy is seen. No acute osseous abnormality is seen. IMPRESSION: 1. No abnormality is seen in the abdomen or pelvis. Dictated by: Dictated on workstation # [id number]
[2020-07-21 12:13] VITALS: BP 157/68
== END 2020-07-21 12:13 | disposition home or self-care (01) ==
LOC: EDUNIT# 10:26 → ER 10:29
DX: K62.5 Hemorrhage of anus and rectum (principal); Z87.891 Personal history of nicotine dependence; Z77.22 Contact with and (suspected) exposure to environmental tobacco smoke (acute) (chronic); Z85.828 Personal history of other malignant neoplasm of skin; Z80.0 Family history of malignant neoplasm of digestive organs
CPT/HCPCS: 36415; 74177; 80053; 85025; 85610

== ENCOUNTER 2020-08-22 05:37 | Outpatient (RCR) | payer OTHER ==
[~2020-08-22] VITALS: Ht 165.1 cm; Wt 102.7 kg
[~2020-08-22 05:37] MED LIST changes: +LORA10TA76 PO; +MV-M1TAB57 PO; +OXYM30SP25 NSEACH
== END 2020-08-22 09:41 | disposition home or self-care (01) ==
LOC: PREOP 05:37
PROVIDERS: ATTEND Surgery
DX: Z01.812 Encounter for preprocedural laboratory examination (principal); Z20.828 Contact with and (suspected) exposure to other viral communicable diseases
CPT/HCPCS: 87635

== ENCOUNTER → 2020-09-12 | Outpatient (CLI) | payer OTHER | LOC: LABNPT 05:45 | PROVIDERS: ATTEND Surgery | DX: Z01.812 Encounter for preprocedural laboratory examination (principal); K21.9 Gastro-esophageal reflux disease without esophagitis; Z20.828 Contact with and (suspected) exposure to other viral communicable diseases; Z85.9 Personal history of malignant neoplasm, unspecified | CPT/HCPCS: 87635 ==

== ENCOUNTER 2020-09-16 07:14 | Day surgery (SDC) | payer OTHER ==
[~2020-09-16] VITALS: Ht 165.1 cm; Wt 101.0 kg
[2020-09-16] MEDS ORDERED: LACTATED RINGERS 1,000 ML IV ONE (07:30)
[2020-09-16] MEDS ORDERED: LACTATED RINGERS 1,000 ML IV STA (07:30)
[2020-09-16 07:40] VITALS: BP 126/87
[2020-09-16] MEDS ORDERED: PROPOFOL INJECTION 50 ML IV ONE (07:54)
[2020-09-16] MEDS ORDERED: HURRICAINE EXT TUBE (BENZOCAINE) ONE (07:57)
[2020-09-16] MEDS ORDERED: MIDAZOLAM 2 MG/2 ML (VERSED) VIAL ONE (08:24)
[2020-09-16] MEDS ORDERED: HURRICAINE EXT TUBE (BENZOCAINE) XX ONE (08:45)
[2020-09-16 09:00] VITALS: BP 103/62
[2020-09-16 09:05] VITALS: BP_SYST 111; BP_DIAS 74; BP_DIAS 81
--- NOTE | 2020-09-16 09:20 | NUR ---
ASSUMED CARE OF PT FROM Felipa LAURA RN. PT ALERT, DENIES COMPLAINTS OTHER THAN SLIGHT DISCOMFORT FROM ABDOMINAL GAS. HAS BEEN PASSING FLATUS, TAKING PO FLUIDS WITHOUT PROBLEM.
--- NOTE | 2020-09-16 09:27 | Progress Note-Post Operative ---
Post-Operative Progess Note Surgeon (s)/Inker (s) Surgeon KARLA GIFFORD DO Inker: BEAU Varela Pre-Operative Diagnosis Rectal Bleed, Family Hx of Colon CA, GERD Post-Operative Diagnosis Gastritis Hiatal hernia Polyps Int hem Procedure & Operative Findings Date of Procedure 09/16/20 Procedure Performed/Findings EGD with bx Colon with hot bx Anesthesia Type IV sedation by OFFSET MACHINE OPERATOR Estimated Blood Loss Estimated blood loss (mL): scant Specimens/Packing Specimens Removed antral bx body of stomach bx GE jxn bx Descending colon polyp rectal polyp KARLA GIFFORD DO Sep 16, 2020 09:27
--- NOTE | 2020-09-16 09:28 | Endoscopy Discharge Instruct ---
Endo Procedure/Findings Findings 1.: Gastritis 2.: Hiatal Hernia 3.: Polyp 4.: Internal Hemorrhoids Discharge Instructions - Activity: You might feel a little sleepy until tomorrow. This is due to the medicine you received to relax you. Until tomorrow, you should: NOT drive a car, operate machinery or power tools. NOT drink any alcoholic beverages. NOT make any important decisions or sign importortant papers. Do not return to work until tomorrow, unless otherwise instructed. Resume previous activities tomorrow. Diet: Start by taking liquids. If you tolerate liquids, advance to solid food. 1.: Colonscopy in 5 years, EGD in 3 years Notify Physician - If you experience excessive bleeding, unusual abdominal pain, fever, or chest pain, contact your doctor immediately. KARLA GIFFORD DO Sep 16, 2020 09:28
[2020-09-16 09:45] VITALS: BP 111/84
--- NOTE | 2020-09-16 10:00 | NUR ---
UP WITH ASSIST TO BR, GAIT STEADY. STATES SHE IS READY FOR DISMISSAL.
[2020-09-16 10:10] VITALS: BP 111/84
--- NOTE | 2020-09-16 13:51 | Anesthesia-General Post-Op ---
MAC Patient Condition Mental Status/LOC: Same as Preop Cardiovascular: Satisfactory Nausea/Vomiting: Absent Respiratory: Satisfactory Pain: Controlled Complications: Absent Post Op Complications Complications None Follow Up Care/Instructions Patient Instructions None needed. Anesthesiology Discharge Order Discharge Order Patient is doing well, no complaints, stable vital signs, no apparent adverse anesthesia problems. No complications reported per nursing. HAIDER SANTANA CRNA Sep 16, 2020 13:51
--- NOTE | 2020-09-17 03:42 | OPERATIVE REPORT ---
DATE OF SERVICE: 09/16/2020 PREOPERATIVE DIAGNOSES: Rectal bleed, family history of colon cancer and gastroesophageal reflux disease. POSTOPERATIVE DIAGNOSES: 1. Gastritis. 2. Hiatal hernia. 3. Colon polyps. 4. Internal hemorrhoids. PROCEDURES: 1. EGD with biopsy. 2. Colonoscopy with hot biopsy. SURGEON: Nino Brar DO UNDERCUTTER OPERATOR: DESHAWN Varela. ANESTHESIA: IV sedation by the BALLOON SANDER. SPECIMEN: Biopsy of the antrum, biopsy of body of stomach, biopsy of the GE junction as well as one polyp from the descending colon and one polyp in the rectum. BLOOD LOSS: Scant. FLUIDS: Per anesthesia. POSTOPERATIVE CONDITION: Stable. INDICATION FOR PROCEDURE: The patient is a 50-year-old female who has been having some GERD symptoms also recently had rectal bleeding and a family history of colon cancer. FINDINGS: The patient had some gastritis, hiatal hernia. She had 2 small polyps in the colon, one in the descending colon and one in the rectum and she had some minimal internal hemorrhoids. PROCEDURE NOTE: After informed consent was obtained, the patient was brought to the endoscopy suite, placed in bed in left lateral decubitus position. She was administered IV sedation by the BALLOON SANDER who then monitored her vitals the entire time, heart rate, blood pressure and pulse ox and the scope was inserted. First started with the EGD, placed the scope down the mouth through the esophagus and into the stomach. In the stomach, noted some mild gastritis, pushed into the duodenum. Duodenum looked fine. Pulled back, did a biopsy of the antrum. Retroflexed the scope, saw hiatal hernia, took a picture and then did a biopsy of the body of stomach and then pulled the scope into the GE junction, did a biopsy and then pushed the scope back in the stomach, suctioned out all the air and then pulled the scope up the esophagus and out the mouth. I then switched camera, switched gloves, went down below, started the colonoscopy. Pushed all the way into about 140 cm, able to get to the cecum, took a picture of appendiceal orifice and then noted the ileocecal valve and then slowly withdrew the scope insufflating to look circumferentially at the cramer looking the cecum, up the ascending colon to the hepatic flexure, then down the transverse colon, the splenic flexure, into the descending colon. In the descending colon, saw small flat polyp, I elected to do a hot biopsy of this and then continued down to the sigmoid into the rectum. In the rectum, saw another small flat polyp, did another hot biopsy of this and then into the rectal vault, retroflexed, saw some minimal internal hemorrhoids, took a picture and then removed the scope. The patient tolerated the procedure well. She recovered in endoscopy suite. Job ID: [id number] DocumentID: [id number] Dictated Date: 09/16/2020 17:47:42 Ballast Inspector Date: 09/17/2020 03:40:18 Dictated By: NINO BRAR DO
== END 2020-09-16 10:10 | disposition home or self-care (01) ==
LOC: ENDO 07:14
PROVIDERS: ATTEND Surgery
DX: K29.50 Unspecified chronic gastritis without bleeding (principal); K21.00 Gastro-esophageal reflux disease with esophagitis, without bleeding; K44.9 Diaphragmatic hernia without obstruction or gangrene; D12.4 Benign neoplasm of descending colon; K62.1 Rectal polyp; K64.8 Other hemorrhoids; G47.33 Obstructive sleep apnea (adult) (pediatric); B96.81 Helicobacter pylori [H. pylori] as the cause of diseases classified elsewhere; Z79.899 Other long term (current) drug therapy; Z80.0 Family history of malignant neoplasm of digestive organs
CPT/HCPCS: 88305

== ENCOUNTER → 2020-09-20 | Outpatient (CLI) | payer OTHER ==
--- NOTE | 2020-09-20 13:51 | Diagnostic Imaging Report ---
INDICATION: Routine screening. Comparison is made with prior mammogram 05/29/2019 and 03/22/2018. 2-D and 3-D bilateral screening mammography was performed with CAD. Both breasts are heterogeneously dense, limiting the sensitivity of mammography. Nodular densities in the left breast appears stable. The overall parenchymal pattern appears stable. No spiculated mass or malignant appearing microcalcifications are seen. Axillae are unremarkable. IMPRESSION: BI-RADS Category 2 No mammographic features suspicious for malignancy are identified. ACR BI-RADS Category 2: Benign findings. Result letter will be mailed to the patient. Note: At least 10% of breast cancer is not imaged by mammography. Dictated by: Dictated on workstation # [id number]
== END ==
LOC: RAD 10:14
PROVIDERS: ATTEND Nurse Practitioner
DX: Z12.31 Encounter for screening mammogram for malignant neoplasm of breast (principal)
CPT/HCPCS: 77063; 77067

== ENCOUNTER 2020-10-15 13:47 | Outpatient (RCR) | payer OTHER | END 2021-01-13 | disposition home or self-care (01) | LOC: LAB 13:47 | PROVIDERS: ATTEND Surgery | DX: A04.8 Other specified bacterial intestinal infections (principal) | CPT/HCPCS: 36415; 87338 ==

== ENCOUNTER → 2022-07-31 | Outpatient (CLI) | payer OTHER ==
--- NOTE | 2022-07-31 10:17 | Diagnostic Imaging Report ---
INDICATION: Left ankle pain AP, and lateral views of the left ankle are obtained. No fracture or acute bony abnormality is seen. IMPRESSION: Negative left ankle. Dictated by: Dictated on workstation # [id number]
--- NOTE | 2022-07-31 10:27 | Diagnostic Imaging Report ---
INDICATION: Back pain. AP and lateral views of the lumbar spine are obtained. FINDINGS: The lumbar vertebrae are normal in height and alignment. There is no fracture or subluxation. There is mild disc space narrowing at L5-S1 and L2-L3 with mild osteophyte formation. IMPRESSION: Mild degenerative changes in the lumbar spine with no acute appearing abnormality. Dictated by: Dictated on workstation # [id number]
== END ==
LOC: RAD 09:21
PROVIDERS: ATTEND Family Medicine
DX: M47.814 Spondylosis without myelopathy or radiculopathy, thoracic region (principal); M25.572 Pain in left ankle and joints of left foot
CPT/HCPCS: 72100; 73600